=== PATIENT | female | born 1970 | race Hispanic/Latino ===

== ENCOUNTER 2018-05-31 18:38 | Emergency (ER) | payer SELFPAY ==
[~2018-05-31] VITALS: Ht 160 cm; Wt 77.1 kg
[~2018-05-31 18:38] MED LIST: METFORMIN HCL500 MG PO
[2018-05-31] MEDS ORDERED: ONDANSETRON HCL INJ 2 MG/ML VIAL IV STA (18:51)
[2018-05-31] MEDS ORDERED: MORPHINE SULFATE 2 MG/ML SYR IV STA (18:51)
[2018-05-31] MEDS ORDERED: SODIUM CHLORIDE 0.9% 1000ML 1,000 ML IV SCH (19:00)
[2018-05-31 19:13] LABS: BASOPHILS # (AUTO) 0.1 (0.0-0.1); BASOPHILS % 0.7 % (0.0-1.0); EOSINOPHILS # (AUTO) 0.2 (0.0-0.4); EOSINOPHILS % 1.6 % (0.0-6.0); HEMATOCRIT 43.6 % (34.2-44.1); HEMOGLOBIN 15.6 g/dL (12.0-16.0); LYMPHOCYTES # (AUTO) 3.6 (1.0-3.2); LYMPHOCYTES % 28.3 % (18.0-39.1); MEAN CORPUSCULAR HEMOGLOBIN 31.5 pg (28-32); MEAN CORPUSCULAR HGB CONC 35.8 g/dL (31-35); MEAN CORPUSCULAR VOLUME 88.1 fL (81-99); MONOCYTES # (AUTO) 0.9 (0.2-0.8); MONOCYTES % 6.8 % (4.4-11.3); NEUTROPHILS # (AUTO) 7.9 (2.1-6.9); NEUTROPHILS % 62.1 % (38.7-80.0); PLATELET COUNT 402 x10e3/uL (140-360); RED BLOOD COUNT 4.95 x10e6/uL (3.6-5.1)
[2018-05-31] MEDS ORDERED: ONDANSETRON HCL INJ 2 MG/ML VIAL IV SCH (19:15)
[2018-05-31] MEDS ORDERED: MORPHINE SULFATE 2 MG/ML SYR IV SCH (19:15)
[2018-05-31 19:33] LABS: ALANINE AMINOTRANSFERASE 15 IU/L (0-55); ALBUMIN 4.4 g/dL (3.5-5.0); ALBUMIN/GLOBULIN RATIO 1.2 (0.8-2.0); ALKALINE PHOSPHATASE 67 IU/L (40-150); ANION GAP 17.6 mmol/L (8-16); BLOOD UREA NITROGEN 13 mg/dL (7-26); BUN/CREATININE RATIO 17 (6-25); CALCIUM 10.2 mg/dL (8.4-10.2); CARBON DIOXIDE 20 mmol/L (22-29); CHLORIDE 104 mmol/L (98-107); CREATININE, SERUM 0.76 mg/dL (0.57-1.11); EST GLOMERULAR FILTRATION RATE > 60 ML/MIN (60-); GLUCOSE 97 mg/dL (74-118); POTASSIUM 3.6 mmol/L (3.5-5.1); SODIUM 138 mmol/L (136-145)
[2018-05-31 19:34] LABS: AMYLASE 63 U/L (25-125); LIPASE 54 U/L (8-78)
--- NOTE | 2018-05-31 19:48 | Diagnostic Imaging Report ---
EXAM: CT Abdomen and Pelvis WITHOUT contrast INDICATION: Renal stone protocol. Abdominal pain. Intermittent left flank pain. Nausea and vomiting. COMPARISON: CT abdomen and pelvis 05/02/2017. TECHNIQUE: Abdomen and pelvis were scanned utilizing a multidetector helical scanner from the lung base to the pubic symphysis without administration of IV contrast. Absence of intravenous contrast decreases sensitivity for detection of focal lesions and vascular pathology. Coronal and sagittal reformations were obtained. Stone protocol is performed. IV CONTRAST: None ORAL CONTRAST: Water COMPLICATIONS: None RADIATION DOSE: Total DLP: 516 mGy*cm Estimated effective dose: (DLP x 0.015 x size factor) mSv CTDIvol has been reviewed. It is below the limits set by the Radiation Protocol Committee (RPC). FINDINGS: LINES and TUBES: None. LOWER THORAX: Unremarkable HEPATOBILIARY: No focal hepatic lesions. No biliary ductal dilation. GALLBLADDER: There are cholecystectomy clips. SPLEEN: No splenomegaly. PANCREAS: No focal masses or ductal dilatation. ADRENALS: No adrenal nodules KIDNEYS/URETERS: Right renal scarring. No hydronephrosis. No cystic or solid mass lesions. No stones. GI TRACT: No abnormal distention, wall thickening, or evidence of bowel obstruction. Appendix is normal. PELVIC ORGANS/BLADDER: The uterus is absent. Bilateral ovaries are unremarkable. LYMPH NODES: No lymphadenopathy. VESSELS: Unremarkable. PERITONEUM / RETROPERITONEUM: No free air or fluid. BONES: Unremarkable. SOFT TISSUES: Unremarkable. IMPRESSION: Unremarkable abdomen and pelvis. No renal stones. Signed by: Dr. Eric Mcgill M.D. on 05/31/2018 7:45 PM
[2018-05-31 19:50] LABS: BILIRUBIN,URINE NEGATIVE (NEGATIVE); CLARITY,URINE SL CLOUDY (CLEAR); COLOR,URINE YELLOW (YELLOW); KETONES,URINE 1+ (NEGATIVE); LEUKOCYTE ESTERASE ,URINE NEGATIVE (NEGATIVE); NITRITE,URINE NEGATIVE (NEGATIVE); PROTEIN,URINE DIPSTICK NEGATIVE (NEGATIVE); URINE UROBILINOGEN 0.2 mg/dL (0.2 - 1)
[2018-05-31] MEDS ORDERED: KETOROLAC TROMETHAMINE 30 MG/ML VIAL IV STA (19:52)
[2018-05-31 20:00] LABS: EPITHELIAL CELLS,URINE MANY /LPF; MUCUS,URINE MODERATE (RARE)
[2018-05-31 20:11] VITALS: BP 126/67
== END 2018-05-31 20:42 | disposition home or self-care (01) ==
LOC: ER 18:38
DX: R10.32 Left lower quadrant pain (principal); R11.2 Nausea with vomiting, unspecified; R19.7 Diarrhea, unspecified; E11.9 Type 2 diabetes mellitus without complications
CPT/HCPCS: 36415; 74176; 80053; 81001; 82150; 83690; 84702; 85025; 99284; J1885; J2270; J2405; J7030

== ENCOUNTER 2018-11-17 12:00 | Emergency (ER) | payer SELFPAY ==
--- NOTE | 2018-11-17 12:52 | NUR ---
No answer in lobby at this time.
--- NOTE | 2018-11-17 13:22 | NUR ---
No answer in lobby at this time.
== END 2018-11-17 13:23 | disposition short-term general hospital (02) ==
LOC: ER 12:00
DX: M54.9 Dorsalgia, unspecified (principal)

== ENCOUNTER 2019-04-05 05:37 | Emergency (ER) | payer OTHER ==
[~2019-04-05] VITALS: Ht 160 cm; Wt 77.1 kg
[2019-04-05] MEDS ORDERED: ONDANSETRON HCL INJ 2MG/ML 2ML 2 MG/ML VIAL IV STA (05:54)
[2019-04-05] MEDS ORDERED: SODIUM CHLORIDE 0.9% 1000ML 1,000 ML IV ONE (06:00)
[2019-04-05] MEDS ORDERED: DICYCLOMINE HCL 20 MG/2 ML VIAL IM ONE (06:00)
[2019-04-05] MEDS ORDERED: DIATRIZOATE MEGL/DIATRIZOA SOD 30 ML BTL PO ONE (06:10)
[2019-04-05 06:50] LABS: BASOPHILS # (AUTO) 0.1 (0.0-0.1); BASOPHILS % 0.5 % (0.0-1.0); EOSINOPHILS # (AUTO) 0.3 (0.0-0.4); EOSINOPHILS % 2.9 % (0.0-6.0); LYMPHOCYTES % 31.4 % (18.0-39.1); MEAN CORPUSCULAR HEMOGLOBIN 31.4 pg (28-32); MEAN CORPUSCULAR HGB CONC 34.6 g/dL (31-35); MEAN CORPUSCULAR VOLUME 90.7 fL (81-99); MONOCYTES # (AUTO) 0.6 (0.2-0.8); MONOCYTES % 6.5 % (4.4-11.3); NEUTROPHILS # (AUTO) 5.6 (2.1-6.9); NEUTROPHILS % 58.2 % (38.7-80.0); PLATELET COUNT 349 x10e3/uL (140-360); RED BLOOD COUNT 4.52 x10e6/uL (3.6-5.1); RED CELL DISTRIBUTION WIDTH 12.7 % (11.7-14.4)
[2019-04-05 06:51] LABS: COLOR,URINE AMBER (YELLOW)
[2019-04-05 06:52] LABS: BILIRUBIN,URINE NEGATIVE (NEGATIVE); CLARITY,URINE SL CLOUDY (CLEAR); KETONES,URINE 1+ (NEGATIVE); LEUKOCYTE ESTERASE ,URINE NEGATIVE (NEGATIVE); NITRITE,URINE NEGATIVE (NEGATIVE); PROTEIN,URINE DIPSTICK TRACE (NEGATIVE); URINE UROBILINOGEN 0.2 mg/dL (0.2 - 1)
[2019-04-05 06:55] LABS: HEMOGLOBIN 14.2 g/dL (12.0-16.0)
[2019-04-05 07:11] LABS: ALANINE AMINOTRANSFERASE 26 IU/L (0-55); ALBUMIN/GLOBULIN RATIO 1.2 (0.8-2.0); ALKALINE PHOSPHATASE 73 IU/L (40-150); AMYLASE 61 U/L (25-125); BLOOD UREA NITROGEN 17 mg/dL (7-26); BUN/CREATININE RATIO 22 (6-25); CARBON DIOXIDE 25 mmol/L (22-29); CHLORIDE 104 mmol/L (98-107); CREATININE, SERUM 0.78 mg/dL (0.57-1.11); EST GLOMERULAR FILTRATION RATE > 60 ML/MIN (60-); GLUCOSE 183 mg/dL (74-118); LIPASE 50 U/L (8-78); SODIUM 136 mmol/L (136-145)
[2019-04-05 07:12] LABS: BACTERIA,URINE FEW /HPF; EPITHELIAL CELLS,URINE MANY /LPF
[2019-04-05] MEDS ORDERED: SODIUM CHLORIDE 0.9% 50ML 50 ML ONE (07:40)
[2019-04-05] MEDS ORDERED: IOPAMIDOL 370 MG/ML 200 ML INFUS..BTL INJ ONE (07:41)
--- NOTE | 2019-04-05 08:33 | Diagnostic Imaging Report ---
EXAMINATION: CT of the abdomen and pelvis with contrast. TECHNIQUE: Spiral CT images of the abdomen and pelvis were performed from the lung bases to the lesser trochanters after the intravenous administration of 100 cc Isovue-370. Coronal and sagittal reformatted images were obtained. COMPARISON: CT abdomen and pelvis without contrast 05/31/2018 CLINICAL HISTORY:Left lower quadrant pain, diarrhea DISCUSSION: ABDOMEN/PELVIS: LOWER THORAX:Unremarkable. HEPATOBILIARY: No focal hepatic lesions. No intra-or extrahepatic biliary ductal dilation. The gallbladder has been removed. SPLEEN: No splenomegaly. PANCREAS: No focal masses or ductal dilatation. ADRENALS: No adrenal nodules. KIDNEYS/URETERS: Lobulated contour of the kidneys, right greater than left, likely congenital. No hydronephrosis, calculi, or gross mass lesion. PELVIC ORGANS/BLADDER: Urinary bladder is unremarkable. Uterus is not identified and has presumably been removed. No adnexal mass. PERITONEUM/RETROPERITONEUM: No ascites. No pneumoperitoneum. LYMPH NODES: No pelvic sidewall, retroperitoneal, or mesenteric lymphadenopathy. VESSELS: Abdominal aorta, major branch vessels, and iliac arterial systems are patent with minimal calcified atherosclerotic plaque. Portal vein, splenic vein, and central superior mesenteric vein are patent. GI TRACT: The large bowel shows no distention or wall thickening. Gas and fecal material are noted throughout. The appendix is normal. No small bowel dilatation to suggest obstruction. The stomach is collapsed with prominent rugal folds. BONES AND SOFT TISSUE: No osseous destructive lesions. Bilateral facet arthropathy at L5-S1. Hemangioma T9 vertebral body. No soft tissue abnormalities. IMPRESSION: No acute intra-abdominal or pelvic CT abnormalities. Signed by: Dr. Ferny Sherwood M.D. on 04/05/2019 8:30 AM
[2019-04-05] MEDS ORDERED: DICYCLOMINE HCL20 MG PO (08:53)
== END 2019-04-05 09:01 | disposition home or self-care (01) ==
LOC: ER 05:37
DX: R10.32 Left lower quadrant pain (principal); R11.2 Nausea with vomiting, unspecified; R19.7 Diarrhea, unspecified; E11.9 Type 2 diabetes mellitus without complications
CPT/HCPCS: 36415; 74177; 80053; 81001; 82150; 83690; 85025; 99284; J0500; J2405; J7030; Q9967

== ENCOUNTER 2019-09-21 10:20 | Emergency (ER) | payer OTHER ==
[~2019-09-21] VITALS: Ht 160 cm; Wt 77.1 kg
[~2019-09-21 10:20] MED LIST changes: +DICYCLOMINE HCL20 MG PO
[2019-09-21] MEDS ORDERED: SODIUM CHLORIDE 0.9% 1000ML 1,000 ML IV STA (10:24)
[2019-09-21] MEDS ORDERED: ONDANSETRON HCL INJ 2MG/ML 2ML 2 MG/ML VIAL IV STA (10:59)
[2019-09-21] MEDS ORDERED: FENTANYL CITRATE/PF 100MCG/2 ML INJ IV ONE (11:00)
[2019-09-21 11:01] LABS: BASOPHILS # (AUTO) 0.1 (0.0-0.1); BASOPHILS % 0.8 % (0.0-1.0); EOSINOPHILS # (AUTO) 0.3 (0.0-0.4); EOSINOPHILS % 2.4 % (0.0-6.0); HEMATOCRIT 43.5 % (34.2-44.1); HEMOGLOBIN 15.5 g/dL (12.0-16.0); LYMPHOCYTES # (AUTO) 2.6 (1.0-3.2); MEAN CORPUSCULAR HEMOGLOBIN 31.8 pg (28-32); MEAN CORPUSCULAR HGB CONC 35.6 g/dL (31-35); MEAN CORPUSCULAR VOLUME 89.1 fL (81-99); MONOCYTES # (AUTO) 0.7 (0.2-0.8); MONOCYTES % 5.9 % (4.4-11.3); NEUTROPHILS # (AUTO) 8.1 (2.1-6.9); NEUTROPHILS % 68.6 % (38.7-80.0); PLATELET COUNT 367 x10e3/uL (140-360); RED BLOOD COUNT 4.88 x10e6/uL (3.6-5.1)
[2019-09-21 11:21] LABS: ALANINE AMINOTRANSFERASE 22 IU/L (0-55); ALBUMIN 4.1 g/dL (3.5-5.0); ALBUMIN/GLOBULIN RATIO 1.3 (0.8-2.0); ALKALINE PHOSPHATASE 73 IU/L (40-150); ANION GAP 14.3 mmol/L (8-16); BLOOD UREA NITROGEN 21 mg/dL (7-26); BUN/CREATININE RATIO 26 (6-25); CALCIUM 9.4 mg/dL (8.4-10.2); CARBON DIOXIDE 27 mmol/L (22-29); CHLORIDE 97 mmol/L (98-107); CREATINE KINASE 58 IU/L (29-168); EST GLOMERULAR FILTRATION RATE > 60 ML/MIN (60-); GLUCOSE 199 mg/dL (74-118); LIPASE 27 U/L (8-78); POTASSIUM 3.3 mmol/L (3.5-5.1); SODIUM 135 mmol/L (136-145)
[2019-09-21] MEDS ORDERED: KETOROLAC TROMETHAMINE 30 MG/ML VIAL IV STA (12:34)
[2019-09-21] MEDS ORDERED: POTASSIUM CHLORIDE 20 MEQ TAB CR PO STA (12:35)
[2019-09-21 12:55] LABS: BILIRUBIN,URINE NEGATIVE (NEGATIVE); CLARITY,URINE CLEAR (CLEAR); COLOR,URINE YELLOW (YELLOW); KETONES,URINE 1+ (NEGATIVE); LEUKOCYTE ESTERASE ,URINE NEGATIVE (NEGATIVE); NITRITE,URINE NEGATIVE (NEGATIVE); PROTEIN,URINE DIPSTICK NEGATIVE (NEGATIVE); URINE UROBILINOGEN 0.2 mg/dL (0.2 - 1)
[2019-09-21] MEDS ORDERED: LORAZEPAM INJ 2 MG/ML VIAL IV ONE ×2 (13:00→13:30)
[2019-09-21 13:03] LABS: AMPHETAMINES SCREEN,URINE NEGATIVE (NEGATIVE); BENZODIAZEPINES SCREEN,URINE POSITIVE (NEGATIVE); PHENCYCLIDINE SCREEN,URINE NEGATIVE (NEGATIVE)
[2019-09-21 13:48] LABS: MUCUS,URINE FEW (RARE)
[2019-09-21 13:49] LABS: BACTERIA,URINE FEW /HPF; EPITHELIAL CELLS,URINE FEW /LPF; HYALINE CASTS 0-1 (0-1); RBC,URINE 0-5 /HPF (0-5); WBC,URINE (MAN) 0-5 /HPF (0-5)
--- NOTE | 2019-09-21 14:14 | Diagnostic Imaging Report ---
EXAM: CT Abdomen and Pelvis WITH intravenous contrast INDICATION: Abdominal pain COMPARISON: CT abdomen and pelvis of 04/05/2019 TECHNIQUE: Abdomen and pelvis were scanned utilizing a multidetector helical scanner from the lung base to the pubic symphysis after administration of IV contrast. Coronal and sagittal reformations were obtained. Routine protocol was performed. Scan was performed during portal venous phase. IV CONTRAST: 100mL of Isovue 370 ORAL CONTRAST: Water RADIATION DOSE: Total DLP: 321.5 mGy*cm Dose modulation, iterative reconstruction, and/or weight based adjustment of the mA/kV was utilized to reduce the radiation dose to as low as reasonably achievable. FINDINGS: LOWER THORAX: Bibasilar dependent subsegmental atelectasis. No focal consolidation. HEPATOBILIARY: Diffuse hepatic steatosis. No focal liver lesion. No biliary ductal dilation. Status post cholecystectomy. SPLEEN: No splenomegaly. PANCREAS: No focal masses or ductal dilatation. ADRENALS: No adrenal nodules. KIDNEYS/URETERS: No hydronephrosis, stones, or solid mass lesions. PELVIC ORGANS/BLADDER: Status post hysterectomy. Distended bladder. PERITONEUM / RETROPERITONEUM: No free air or fluid. LYMPH NODES: No lymphadenopathy. VESSELS: Unremarkable. GI TRACT: No distention or wall thickening. BONES AND SOFT TISSUES: No acute osseous injury. No suspicious lytic or blastic lesions. IMPRESSION: No acute findings in the abdomen or pelvis. Diffuse hepatic steatosis. Signed by: Maximiliano Stein MD on 09/21/2019 2:10 PM
--- NOTE | 2019-09-21 14:14 | NUR ---
pt is resting peacefully and once she wakes up she starts to dry heave and c/o pain. Pt is sleeping but when you wake her she is in pain.
[2019-09-21] MEDS ORDERED: ZOFRAN4 MG SL (14:16)
[2019-09-21 14:53] VITALS: BP 129/60
[2019-09-21] MEDS ORDERED: SODIUM CHLORIDE 0.9% 50ML 50 ML ONE (15:12)
[2019-09-21] MEDS ORDERED: IOPAMIDOL 370 MG/ML 200 ML INFUS..BTL INJ ONE (15:12)
== END 2019-09-21 14:55 | disposition home or self-care (01) ==
LOC: ER 10:20
DX: R10.32 Left lower quadrant pain (principal); R11.10 Vomiting, unspecified; F12.20 Cannabis dependence, uncomplicated
CPT/HCPCS: 36415; 74177; 80053; 80307; 81001; 82550; 82553; 83690; 84484; 85025; 93005; 99284; J1885; J2060; J2405; J3010; J7030; Q9967

== ENCOUNTER 2020-06-17 14:22 | Emergency (ER) | payer SELFPAY ==
[~2020-06-17] VITALS: Ht 160 cm; Wt 77.1 kg
[~2020-06-17 14:22] MED LIST changes: +ZOFRAN4 MG SL
[2020-06-17] MEDS ORDERED: IOPAMIDOL 300MG/ML 100 ML INFUS..BTL IV ONE (14:30)
[2020-06-17] MEDS ORDERED: SODIUM CHLORIDE 0.9% INJ 50 ML BAG IV ONE (14:30)
[2020-06-17] MEDS ORDERED: PANTOPRAZOLE 40 MG 10ML VIAL IV STA (14:34)
[2020-06-17] MEDS ORDERED: SODIUM CHLORIDE 0.9% 1000ML 1,000 ML IV STA (14:34)
[2020-06-17] MEDS ORDERED: DICYCLOMINE HCL 20 MG/2 ML VIAL IM ONE (14:45)
[2020-06-17] MEDS ORDERED: PROMETHAZINE 25MG/ NS 50ML (IV) IV PRN (14:45)
[2020-06-17 14:51] LABS: BASOPHILS # (AUTO) 0.1 (0.0-0.1); BASOPHILS % 0.6 % (0.0-1.0); EOSINOPHILS # (AUTO) 0.3 (0.0-0.4); EOSINOPHILS % 2.2 % (0.0-6.0); HEMATOCRIT 47.9 % (34.2-44.1); HEMOGLOBIN 16.6 g/dL (12.0-16.0); LYMPHOCYTES # (AUTO) 1.4 (1.0-3.2); LYMPHOCYTES % 9.6 % (18.0-39.1); MEAN CORPUSCULAR HEMOGLOBIN 30.1 pg (28-32); MEAN CORPUSCULAR HGB CONC 34.7 g/dL (31-35); MEAN CORPUSCULAR VOLUME 86.9 fL (81-99); MONOCYTES # (AUTO) 0.7 (0.2-0.8); MONOCYTES % 4.7 % (4.4-11.3); NEUTROPHILS # (AUTO) 12.2 (2.1-6.9); NEUTROPHILS % 82.4 % (38.7-80.0); PLATELET COUNT 344 x10e3/uL (140-360); RED BLOOD COUNT 5.51 x10e6/uL (3.6-5.1); RED CELL DISTRIBUTION WIDTH 11.9 % (11.7-14.4)
[2020-06-17] MEDS ORDERED: PROMETHAZINE 25MG/SOD CHL 0.9% 50 ML ONE (14:55)
[2020-06-17 14:57] LABS: INR 0.79; PROTHROMBIN TIME 11.3 seconds (11.9-14.5)
[2020-06-17 14:58] LABS: PARTIAL THROMBOPLASTIN TIME 24.9 seconds (23.8-35.5)
[2020-06-17 14:58] LABS: CLARITY,URINE SL CLOUDY (CLEAR); COLOR,URINE YELLOW (YELLOW); KETONES,URINE 2+ (NEGATIVE); LEUKOCYTE ESTERASE ,URINE NEGATIVE (NEGATIVE); NITRITE,URINE NEGATIVE (NEGATIVE); PROTEIN,URINE DIPSTICK 2+ (NEGATIVE); URINE UROBILINOGEN 0.2 mg/dL (0.2 - 1)
[2020-06-17 14:59] LABS: BILIRUBIN,URINE NEGATIVE (NEGATIVE)
[2020-06-17 15:02] LABS: AMPHETAMINES SCREEN,URINE NEGATIVE (NEGATIVE); BENZODIAZEPINES SCREEN,URINE NEGATIVE (NEGATIVE); PHENCYCLIDINE SCREEN,URINE NEGATIVE (NEGATIVE)
[2020-06-17 15:08] LABS: ALANINE AMINOTRANSFERASE 39 IU/L (0-55); ALBUMIN 4.5 g/dL (3.5-5.0); ALBUMIN/GLOBULIN RATIO 1.1 (0.8-2.0); ALKALINE PHOSPHATASE 119 IU/L (40-150); AMYLASE 49 U/L (25-125); ANION GAP 21.7 mmol/L (8-16); BLOOD UREA NITROGEN 15 mg/dL (7-26); BUN/CREATININE RATIO 17 (6-25); CALCIUM 10.6 mg/dL (8.4-10.2); CARBON DIOXIDE 20 mmol/L (22-29); CHLORIDE 102 mmol/L (98-107); CREATINE KINASE 70 IU/L (29-168); CREATININE, SERUM 0.86 mg/dL (0.57-1.11); EST GLOMERULAR FILTRATION RATE > 60 ML/MIN (60-); GLUCOSE 370 mg/dL (74-118); LIPASE 27 U/L (8-78); MAGNESIUM 1.6 MG/DL (1.3-2.1); POTASSIUM 3.7 mmol/L (3.5-5.1); SODIUM 140 mmol/L (136-145)
[2020-06-17 15:09] LABS: BACTERIA,URINE FEW /HPF; EPITHELIAL CELLS,URINE FEW /LPF; RBC,URINE 0-5 /HPF (0-5)
--- NOTE | 2020-06-17 15:14 | Diagnostic Imaging Report ---
EXAMINATION: CHEST SINGLE (PORTABLE) INDICATION: Abdominal pain COMPARISON: None FINDINGS: LINES/TUBES:None LUNGS:The lungs are well-inflated. No focal consolidation or pulmonary edema. PLEURA:No pleural effusion or pneumothorax. MEDIASTINUM:The cardiomediastinal silhouette appears normal in size and shape. BONES/SOFT TISSUES:No acute osseous injury. ABDOMEN:No free air under the diaphragm. IMPRESSION: No focal pneumonia or pulmonary edema. Signed by: Maximiliano Stein MD on 06/17/2020 3:11 PM
[2020-06-17] MEDS ORDERED: PROMETHAZINE HCL (IM) 25 MG/ML VIAL IM PRN (15:15)
[2020-06-17] MEDS ORDERED: DIATRIZOATE MEGL/DIATRIZOA SOD 30 ML BTL PO ONE (15:36)
--- NOTE | 2020-06-17 15:53 | Emergency Department Note ---
History of Present Illnes History of Present Illness Chief Complaint: Abdominal Complaints History of Present Illness This is a 49 year old female INTERMITTENT EPIGASTRIC PAIN, NON RADIATING. C/O OF MULTIPLE EPISODES OF VOMITING AND DIARRHEA. PATIENT CLAMMY, YELLING OUT IN PAIN. LAST MEAL 7PM. 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 Any updates have been documented here. Past Medical History Recent Fever: No Clinical Suspicion of Infectio: No New/Unexplained Change in Ment: No Past Medical History: Diabetes Other Medical History: GALLSTONES Past Surgical History: Cholecysctectomy, Hysterectomy Other Surgery: KNEE REPLACEMENT Social History Smoking Cessation: Never Smoker Counseling Performed: No Alcohol Use: None Any Illegal Drug Use: Yes (MARIJUANA) TB Exposure/Symptoms: No Physically hurt or threatened: No Family History Family history of heart diseas: No Other Last Tetanus: UTD Any Pre-Existing Lines (PICC,: No Review of Systems Review of Systems Constitutional: Reports no symptoms EENTM: Reports no symptoms Cardiovascular: Reports no symptoms Respiratory: Reports no symptoms Gastrointestinal: Reports as per HPI, Reports abdominal pain, Reports diarrhea, Reports nausea, Reports vomiting Genitourinary: Reports no symptoms Musculoskeletal: Reports no symptoms Integumentary: Reports no symptoms Neurological: Reports no symptoms Psychological: Reports no symptoms Endocrine: Reports no symptoms Hematological/Lymphatic: Reports no symptoms Physical Exam Related Data Allergies: Coded Allergies: No Known Allergies (Unverified , 06/17/20) Triage Vital Signs Vital Signs Date Time Temp Pulse Resp B/P (MAP) Pulse Ox O2 Delivery O2 Flow Rate FiO2 06/17/20 14:27 97.8 92 20 126/87 100 Room Air Vital signs reviewed: Yes Physical Exam CONSTITUTIONAL Constitutional: Present well-developed, Present well-nourished HENT HENT: Present normocephalic, Present atraumatic, Present oropharynx alex r/moist, Present nose normal HENT L/R: Present left ext ear normal, Present right ext ear normal EYES Eyes: Reports PERRL, Reports conjunctivae normal NECK Neck: Present ROM normal PULMONARY Pulmonary: Present effort normal, Present breath sounds normal CARDIOVASCULAR Cardiovascular: Present regular rhythm, Present heart sounds normal, Present capillary refill normal, Present normal rate GASTROINTESTINAL Abdominal: Present soft, Present bowel sounds normal, Present tender (MOD TENDERNESS ABELARDO AREA WITHOUT R/G); Absent guarding, Absent mass, Absent rebound, Absent left CVA tenderness, Absent right CVA tenderness GENITOURINARY Genitourinary: Present exam deferred SKIN Skin: Present warm, Present dry MUSCULOSKELETAL Musculoskeletal: Present ROM normal NEUROLOGICAL Neurological: Present alert, Present oriented x 3, Present no gross motor or sensory deficits PSYCHOLOGICAL Psychological: Present mood/affect normal, Present judgement normal Results Laboratory Result Diagram: 06/17/20 1431 06/17/20 1431 Laboratory Laboratory Tests Test 06/17/20 14:35 06/17/20 14:31 Urine Color Yellow (YELLOW) Urine Clarity Sl cloudy (CLEAR) Urine pH 7 (5 - 7) Urine Specific Plover 1.020 (1.010-1.025) Urine Protein 2+ (NEGATIVE) Urine Glucose (UA) 2+ (NEGATIVE) Urine Ketones 2+ (NEGATIVE) Urine Blood Trace (NEGATIVE) Urine Nitrite Negative (NEGATIVE) Urine Bilirubin Negative (NEGATIVE) Urine Urobilinogen 0.2 mg/dL (0.2 - 1) Urine Leukocyte Esterase Negative (NEGATIVE) Urine RBC 0-5 /HPF (0-5) Urine WBC None /HPF (0-5) Urine Epithelial Cells Few /LPF (NONE) Urine Bacteria Few /HPF (NONE) Urine Opiates Screen Negative (NEGATIVE) Urine Methadone Screen Negative (NEGATIVE) Urine Barbiturates Screen Negative (NEGATIVE) Urine Phencyclidine Screen Negative (NEGATIVE) Urine Amphetamines Screen Negative (NEGATIVE) Urine Methamphetamines Screen Negative (NEGATIVE) Urine Benzodiazepines Screen Negative (NEGATIVE) Urine Cocaine Screen Negative (NEGATIVE) Urine Cannabinoids Screen Positive (NEGATIVE) White Blood Count 14.77 x10e3/uL (4.8-10.8) Red Blood Count 5.51 x10e6/uL (3.6-5.1) Hemoglobin 16.6 g/dL (12.0-16.0) Hematocrit 47.9 % (34.2-44.1) Mean Corpuscular Volume 86.9 fL (81-99) Mean Corpuscular Hemoglobin 30.1 pg (28-32) Mean Corpuscular Hemoglobin Concent 34.7 g/dL (31-35) Red Cell Distribution Width 11.9 % (11.7-14.4) Platelet Count 344 x10e3/uL (140-360) Neutrophils (%) (Auto) 82.4 % (38.7-80.0) Lymphocytes (%) (Auto) 9.6 % (18.0-39.1) Monocytes (%) (Auto) 4.7 % (4.4-11.3) Eosinophils (%) (Auto) 2.2 % (0.0-6.0) Basophils (%) (Auto) 0.6 % (0.0-1.0) Neutrophils # (Auto) 12.2 (2.1-6.9) Lymphocytes # (Auto) 1.4 (1.0-3.2) Monocytes # (Auto) 0.7 (0.2-0.8) Eosinophils # (Auto) 0.3 (0.0-0.4) Basophils # (Auto) 0.1 (0.0-0.1) Absolute Immature Granulocyte (auto 0.08 x10e3/uL (0-0.1) Prothrombin Time 11.3 seconds (11.9-14.5) Prothromb Time International Ratio 0.79 Activated Partial Thromboplast Time 24.9 seconds (23.8-35.5) Sodium Level 140 mmol/L (136-145) Potassium Level 3.7 mmol/L (3.5-5.1) Chloride Level 102 mmol/L (98-107) Carbon Dioxide Level 20 mmol/L (22-29) Anion Gap 21.7 mmol/L (8-16) Blood Urea Nitrogen 15 mg/dL (7-26) Creatinine 0.86 mg/dL (0.57-1.11) Estimat Glomerular Filtration Rate > 60 ML/MIN (60-) BUN/Creatinine Ratio 17 (6-25) Glucose Level 370 mg/dL (74-118) Calcium Level 10.6 mg/dL (8.4-10.2) Magnesium Level 1.6 MG/DL (1.3-2.1) Total Bilirubin 1.0 mg/dL (0.2-1.2) Aspartate Amino Transf (AST/SGOT) 30 IU/L (5-34) Alanine Aminotransferase (ALT/SGPT) 39 IU/L (0-55) Alkaline Phosphatase 119 IU/L (40-150) Creatine Kinase 70 IU/L (29-168) Creatine Kinase MB 0.70 ng/mL (0-5.0) Troponin I 0.011 ng/mL (0-0.300) Total Protein 8.6 g/dL (6.5-8.1) Albumin 4.5 g/dL (3.5-5.0) Globulin 4.1 g/dL (2.3-3.5) Albumin/Globulin Ratio 1.1 (0.8-2.0) Amylase Level 49 U/L (25-125) Lipase 27 U/L (8-78) Lab results reviewed: Yes Imaging Imaging results reviewed: Yes Impressions Procedure: [id number] CT/CT ABDOMEN/PELVIS W Exam Date: 06/17/20 Exam Time: 1556 REPORT STATUS: Signed EXAM: CT Abdomen and Pelvis WITH intravenous contrast INDICATION: Abdominal pain COMPARISON: CT abdomen and pelvis of 09/21/2019 TECHNIQUE: Abdomen and pelvis were scanned utilizing a multidetector helical scanner from the lung base to the pubic symphysis after administration of IV contrast. Coronal and sagittal reformations were obtained. Routine protocol was performed. Scan was performed during portal venous phase. IV CONTRAST: 100mL of Isovue 370 ORAL CONTRAST: None RADIATION DOSE: Total DLP: 820 mGy*cm Dose modulation, iterative reconstruction, and/or weight based adjustment of the mA/kV was utilized to reduce the radiation dose to as low as reasonably achievable. FINDINGS: LOWER THORAX: Normal. HEPATOBILIARY: Diffuse hepatic steatosis. No focal liver lesion. No biliary ductal dilation Status post cholecystectomy. SPLEEN: No splenomegaly. PANCREAS: No focal masses or ductal dilatation. ADRENALS: No adrenal nodules. KIDNEYS/URETERS: Irregularity at the posterior margin of the upper pole of the right kidney, possible postoperative versus congenital. No hydronephrosis or renal calculi. PELVIC ORGANS/BLADDER: Hysterectomy. PERITONEUM / RETROPERITONEUM: No free air or fluid. LYMPH NODES: No lymphadenopathy. VESSELS: Unremarkable. GI TRACT: No abnormal bowel thickening. No bowel obstruction. Normal appendix. BONES AND SOFT TISSUES: No acute osseous injury. No suspicious lytic or blastic lesions. IMPRESSION: No acute findings in the abdomen or pelvis. Diffuse hepatic steatosis. Signed by: Maximiliano Stein MD on 06/17/2020 4:23 PM Procedures 12 Lead ECG Interpretation ECG Interpretation : ECG: ECG 1 House Director: Interpreted by ED physician Date: Jun 17, 2020 Time: 15:36 Rhythm: sinus rhythm Rate: normal (81) QRS axis: normal ST segments normal: Yes T waves normal: Yes Clinical Impression: normal ECG Assessment & Plan Medical Decision Making MDM ABELARDO ABD PAIN WITH N/V/D - CBC, CHEM'S, ERIK/LIPASE, ECG, CARDIAC ENZYMES, UA, CT ABD/PELVIS - EVAL PANCREATITIS, BOWEL OBSTRUCTION, AAA, STEMI/NSTEMI, COLITIS Reassessment Reassessment PAIN IMPROVED WITH BENTYL. DC HOME WITH ZOFRAN AND BENTYL, ADVISE LIQUID DIET X 1-2 DAYS AND ADVANCE SLOWLY, F/U PCP TOMORROW Assessment & Plan Final Impression: (1) Gastroenteritis Depart Disposition: HOME, SELF-CARE Last Vital Signs Date Time Temp Pulse Resp B/P (MAP) Pulse Ox O2 Delivery O2 Flow Rate FiO2 06/17/20 15:15 86 18 119/54 100 Room Air 06/17/20 14:27 97.8 Home Meds Active Scripts Ondansetron Hcl* (ZOFRAN*) 4 Mg Tablet, 4 MG SL Q6H PRN for NAUSEA, #14 MG 0 Refills Prov:DIANE HUERTA [employer]FT [employer]IPPING CHECKER 09/21/19 Dicyclomine Hcl (DICYCLOMINE HCL) 20 Mg Tablet, 20 MG PO QID, #40 TAB Prov:DEMETRIO CHAWLA DO 04/05/19 Reported Medications Metformin Hcl (METFORMIN HCL) 500 Mg Tablet, 1000 MG PO BID, #60 TAB 08/06/15 Medications in the ED Pantoprazole Sodium 40 mg ONCE STAT IV Last administered on 06/17/20at 14:57; Admin Dose 40 MG; Start 06/17/20 at 14:34; Stop 06/17/20 at 14:55; Status DC Sodium Chloride 1,000 ml @ 0 mls/hr Q0M STAT IV Last administered on 06/17/20at 14:50; Admin Dose 1,000 MLS/HR; Start 06/17/20 at 14:34; Stop 06/17/20 at 14:41; Status DC Dicyclomine HCl 20 mg ONCE ONCE IM Last administered on 06/17/20at 14:57; Admin Dose 20 MG; Start 06/17/20 at 14:45; Stop 06/17/20 at 14:52; Status DC Promethazine HCl 25 mg ONCE PRN IM NAUSEA AND VOMITING; Start 06/17/20 at 15:15; Stop 06/17/20 at 21:00 Diatrizoate Meglum/ Diatrizoate Sod 30 ml STK-MED ONCE PO ; Start 06/17/20 at 15:36; Stop 06/17/20 at 15:30; Status DC ARNOLDO DYKES MD Jun 17, 2020 15:53
--- NOTE | 2020-06-17 16:26 | Diagnostic Imaging Report ---
EXAM: CT Abdomen and Pelvis WITH intravenous contrast INDICATION: Abdominal pain COMPARISON: CT abdomen and pelvis of 09/21/2019 TECHNIQUE: Abdomen and pelvis were scanned utilizing a multidetector helical scanner from the lung base to the pubic symphysis after administration of IV contrast. Coronal and sagittal reformations were obtained. Routine protocol was performed. Scan was performed during portal venous phase. IV CONTRAST: 100mL of Isovue 370 ORAL CONTRAST: None RADIATION DOSE: Total DLP: 820 mGy*cm Dose modulation, iterative reconstruction, and/or weight based adjustment of the mA/kV was utilized to reduce the radiation dose to as low as reasonably achievable. FINDINGS: LOWER THORAX: Normal. HEPATOBILIARY: Diffuse hepatic steatosis. No focal liver lesion. No biliary ductal dilation Status post cholecystectomy. SPLEEN: No splenomegaly. PANCREAS: No focal masses or ductal dilatation. ADRENALS: No adrenal nodules. KIDNEYS/URETERS: Irregularity at the posterior margin of the upper pole of the right kidney, possible postoperative versus congenital. No hydronephrosis or renal calculi. PELVIC ORGANS/BLADDER: Hysterectomy. PERITONEUM / RETROPERITONEUM: No free air or fluid. LYMPH NODES: No lymphadenopathy. VESSELS: Unremarkable. GI TRACT: No abnormal bowel thickening. No bowel obstruction. Normal appendix. BONES AND SOFT TISSUES: No acute osseous injury. No suspicious lytic or blastic lesions. IMPRESSION: No acute findings in the abdomen or pelvis. Diffuse hepatic steatosis. Signed by: Maxiimliano Stein MD on 06/17/2020 4:23 PM
--- OUTSIDE RECORDS SUMMARY | 2020-06-20 19:15 | XMS REPORT | Clinical Summary ---
Author Author [facility] Organization [facility] Address Unknown Phone Unavailable Care Team Providers Care Small Package And Bundle Sorter Clerk Name Role Phone Clara Padilla MD PCP Pcp, No PCP Unavailable Allergies No Known Allergies Medications End Date Status Medication Sig Dispensed Refills Start Date Active ASPIRIN 81 MG CHEWABLE chew 1 tablet 0 TAB (81 mg) by oral route once daily Active blood glucose Use as 1 Kit 0 meterIndications: directed.. 4 Diabetes mellitus type II, uncontrolled Active alcohol swabs Apply to 100 Each 3 PadMIndications: Diabetes affected 4 mellitus type II, area. uncontrolled Active lancets 28 Check blood 50 Each 12 gaugeIndications: glucose 2 7 Inadequately controlled times weekly. diabetes mellitus Active blood glucose test Check blood 50 Each 01 stripsIndications: glucose 2 7 Inadequately controlled times weekly. diabetes mellitus Active linagliptin (TRADJENTA) 5 Take 1 tablet 90 tablet 1 mg tabletIndications: by mouth 8 Inadequately controlled daily. diabetes mellitus Active simvastatin (ZOCOR) 20 mg Take 1 tablet 90 tablet 1 tabletIndications: by mouth at 8 Inadequately controlled bedtime diabetes mellitus nightly. Active metFORMIN (GLUCOPHAGE) Take 2 360 tablet 1 500 mg tabletIndications: tablets by 8 Inadequately controlled mouth 2 times diabetes mellitus daily (with meals). Active ibuprofen (MOTRIN) 800 mg Take 1 tablet 30 tablet 0 tabletIndications: Left by mouth 8 sided abdominal pain every 8 hours as needed for Pain. Active dexlansoprazole Take 1 90 capsule 0 (DEXILANT) 60 mg delayed capsule by 8 release mouth daily. capsuleIndications: Left sided abdominal pain, Abdominal pain, epigastric Active Problems Problem Noted Date Elevated blood pressure reading without diagnosis of hypertension 07/07/2018 Generalized abdominal pain 06/17/2018 Hydrosalpinx 12/20/2017 Inadequately controlled diabetes mellitus 12/20/2017 Pelvic pain 07/06/2017 Screening mammogram, encounter for 07/06/2017 History of vitamin D deficiency 03/15/2017 CANDY positive 03/15/2017 Right tennis elbow 03/15/2017 Polyarthralgia 03/15/2017 Controlled type 2 diabetes mellitus without complicat ion, without long-term 03/15/2017 current use of insulin Abnormal CBC 11/19/2016 Arthralgia 11/17/2016 History of laparoscopic cholecystectomy 11/26/2015 Gallstones 11/04/2015 Fatty liver 09/12/2015 Overweight (BMI 25.0-29.9) 09/12/2015 Abdominal pain 08/05/2015 Hyperlipidemia-controlled with med 07/08/2014 De Quervain's disease (tenosynovitis) 07/08/2014 Diabetes mellitus type II, uncontrolled 04/12/2014 Obesity 04/12/2014 Obesity, Unspecified- as of 03/2014 ref to nut done 1 Immunizations Name Administration Dates Next Due Influenza Vaccine 11/17/2016, 09/12/2015, Influenza Vaccine, 09/30/2017 (Deferred: Other - patient sick today) Seasonal, Injectable Pneumoccoccal 07/22/2009 Tdap Tetanus, diphtheria, 04/12/2014 acellular pertussis Vaccine Family History Medical History Relation Name Comments Diabetes Father Hypertension Father Stroke Paternal Grandfather Relation Name Status Comments Brother Alive Brother Alive Brother Alive Daughter Alive Daughter Alive Father Alive Maternal Grandfather Maternal Grandmother Mother Alive Paternal Grandfather Paternal Grandmother Sister Alive Sister Alive Sister Alive Son Alive Son Alive Social History Date Tobacco Use Types Packs/Day Years Used Former Smoker Cigars Smokeless Tobacco: Never Used Tobacco Cessation: Counseling Given: No Comments: quit 2008 approx Drinks/Week oz/Week Comments Alcohol Use 0 Standard drinks or equivalent 0.0 3 beers once in a vin h Yes Food Insecurity Answer Date Recorded Within the past 12 months, you worried that your Never krystina e 07/07/2018 food would run out before you got money to buy more. Within the past 12 months, the food you bought Never true 07/07/2018 just didn't last and you didn't have mo alyse to get more. Sex Assigned at Date Recorded Not on file Industry Job Start Date Occupation Not on file Not on file Not on file Travel End Travel History Travel Start No recent travel history available. Last Filed Vital Signs Not on file Plan of Treatment Health Maintenance Due Date Last Done Comments DM Foot Exam (Yearly) 07/27/2018 07/27/2017, 11/26/2015, 04/12/2014 Breast Cancer Scrn 01/18/2019 01/18/2018, (Yearly) 05/07/2014 DM Microalbumin Urine 07/06/2019 07/06/2018, Scrn (Yearly) 07/27/2017, 08/16/2016, Additional history exists DM HGBA1C (Yearly) 07/07/2019 07/07/2018, 07/06/2018, 01/18/2018, Additional history exists DM Retinal Exam (Yearly) 07/07/2019 07/07/2018, 07/27/2017, 08/10/2016 Goals Goal Patient Associated Recent Progress Patient-Stat Aut hor Goal Type Problems ed? Eat Healthy Lifestyle No Henny Gonsalez Implants Device Identifier Shelf Expiration Date Model / Serial / L ot Implanted Type Area Manufactur er 09/20/2018 [id number] / / [id number] Endoclip Ii Clip N/A: Abdomen COVIDIEN Implanted: Qty: 1 on 11/15/2015 by Enrico Live MD at [facility] Results Not on fileafter 06/17/2019 Insurance Type Payer Benefit Subscriber ID Effective Phone Address Plan / Dates Group [facility] SELF-PAY SELF-PAY xxxxxxxxx 2018-P [phone] [id number] [place] [address] Guarantor Name Account Relation to Date of Phone Tannerin g Address Type Patient BREA FRANKLIN Personal/F Head of 02/24/1973 [address] [place] Household (Home) [place], [place] [address] (Self)
--- OUTSIDE RECORDS SUMMARY | 2020-06-20 19:15 | XMS REPORT | Continuity of Care Document ---
Author Author [facility] t Organization [facility] Address [address] [place] [address] Phone Unavailable Care Team Providers Care Machine Feeder Name Role Phone ALEXIS MARY PCP Maye DYKES Attphys Unavailable GLORIA COOPER Attphys Unavailable Christopher HASTINGS Attphys Unavailable EDAChanel Attphys Unavailable Payers Payer Name Policy Type Policy Number Effective Date Expiration Date S ource Problems Condition Name Condition Details Condition Category Status Onset Date Resolution Date Last Treatment Date Treating Clinician Comments Source Elevated blood pressure reading without diagnosis of h ypertension Elevated blood pressure reading without diagnosis of hypertension Disease Active 2018-07-07 00:00:00 [facility] Generalized abdominal pain Generalized abdominal pain Disease Active 2018-06-17 00:00:00 [facility] Hydrosalpinx Hydrosalpinx Disease Active 2017-12-20 00:00:00 [facility] Inadequately controlled diabetes mellitus Inadequately controlled diabetes mellitus Disease Active 2017-12-20 00:00:00 [facility] Pelvic pain Pelvic pain Disease Active 2017-07-06 00:00:00 [facility] Screening mammogram, encounter for Screening mammogram, encounte r for Disease Active 2017-07-06 00:00:00 [facility] History of vitamin D deficiency History of vitamin D deficiency Dis ease Active 2017-03-15 00:00:00 [facility] ealth CANDY positive CANDY positive Disease Active 2017-03-15 00:00:00 [facility] Right tennis elbow Right tennis elbow Disease Active 2017-03-15 00:00:0 0 [facility] Polyarthralgia Polyarthralgia Disease Active 2017-03-15 00:00:00 [facility] Controlled type 2 diabetes mellitus with out complication, without long-term current use of insulin Controlled type 2 diabetes mellitus with out complication, without long-term current use of insulin Disease Active 2017-03-15 00:00: 00 [facility] Abnormal CBC Abnormal CBC Disease Active 2016-11-19 00:00:00 [facility] Arthralgia Arthralgia Disease Active 2016-11-17 00:00:00 [facility] History of laparoscopic cholecystectomy History of laparosco pic cholecystectomy Disease Active 2015-11-26 00:00:00 [facility] Gallstones Gallstones Disease Active 2015-11-04 00:00:00 [facility] Fatty liver Fatty liver Disease Active 2015-09-12 00:00:00 [facility] Overweight (BMI 25.0-29.9) Overweight (BMI 25.0-29.9) Disease Active 2015-09-12 00:00:00 [facility] Abdominal pain Abdominal pain Disease Active 2015-08-05 00:00:00 [facility] Hyperlipidemia-controlled with med Hyperlipidemia-controlled wit h med Disease Active 2014-07-08 00:00:00 [facility] De Quervain's disease (tenosynovitis) De Quervain's disease (tenosynovitis) Disease Active 2014-07-08 00:00:00 [facility] Diabetes mellitus type II, uncontrolled Diabetes mellitus ty pe II, uncontrolled Disease Active 2014-04-12 00:00:00 [facility] Obesity Obesity Disease Active 2014-04-12 00:00:00 [facility] Obesity, Unspecified- as of 03/2014 ref to nut done Obe sity, Unspecified- as of 03/2014 ref to nut done Disease Active 2006-09-13 00:00:00 [facility] Gastroenteritis Problem Active [facility] Allergies, Adverse Reactions, Alerts Allergy Name Allergy Type Status Severity Reaction(s) Onset Date Inacti ve Date Treating Clinician Comments Source No Known Allergies DA Active U 2020-05-12 00:00:00 [facility] No Known Allergies DA Active U 2019-03-30 00:00:00 [facility] No Known Allergies DA Active U 2017-05-03 00:00:00 [facility] Family History Family Member Diagnosis Comments Start Date Stop Date Source Natural father Diabetes Clemente Hea lt Natural father Hypertension [facility] ob[facility]na Paternal grandfather Stroke [facility] Social History Social Habit Start Date Stop Date Quantity Comments Source History of tobacco use Cigar Smoker [facility] Sex Assigned At [facility] Alcohol intake 2019-04-25 00:00:00 2019-04-25 00:00:00 Current drinker of alcohol (finding) [facility] History SDOH Food Worry 2018-07-07 00:00:00 2018-07-07 00:00:00 1 [facility] SDOH Food Scarcity 2018-07-07 00:00:00 2018-07-07 00:00:00 1 [facility] Tobacco Comment 2014-04-12 00:00:00 2014-04-12 00:00:00 quit 2009 edda sivakumar [facility] Alcohol Comment 2014-04-12 00:00:00 2014-04-12 00:00:00 3 beers onc e in a month [facility] Smoking Status Start Date Stop Date Source Former smoker 2019-04-25 00:00:00 2019-04-25 00:00:00 [facility] Medications Ordered Medication Name Filled Medication Name Start Date Stop Da te Current Medication? Ordering Clinician Indication Dosage Frequency Signature (SIG) Comments Components Source Ondansetron Hcl (Zofran*) 4 Mg TABLET Ondansetron Hcl (Zofra n*) 4 Mg TABLET 2019-09-21 14:16:00 Yes 4 Every 6 Hours as n eeded for Nausea [facility] Dicyclomine Hcl Dicyclomine Hcl 2019-04-05 08:53:00 Yes 20 Four Times Daily [facility] ASPIRIN 81 MG CHEWABLE TAB 2018-07-07 14:51:33 Yes chew 1 tablet (81 mg) by oral route once daily [facility] dexlansoprazole (DEXILANT) 60 mg delayed release capsule 2018-07-07 00:00:00 Yes Abdominal pain, epigastric 60mg QD Take 1 capsul e by mouth daily. [facility] ibuprofen (MOTRIN) 800 mg tablet 2018-06-18 00:00:00 Yes Left sided abdominal pain 800mg Take 1 tablet by mouth every 8 h ours as needed for Pain. [facility] linagliptin (TRADJENTA) 5 mg tablet 2018-03-28 00:00:00 Yes Inadequately controlled diabetes mellitus 5mg QD Take 1 tablet by mouth daily. [facility] simvastatin (ZOCOR) 20 mg tablet 2018-03-28 00:00:00 Yes Inadequately controlled diabetes mellitus 20mg Take 1 tablet by mo uth at bedtime nightly. [facility] metFORMIN (GLUCOPHAGE) 500 mg tablet 2018-03-28 00:00:00 Yes Inadequately controlled diabetes mellitus 1000mg Take 2 tabl ets by mouth 2 times daily (with meals). [facility] lancets 28 gauge 2017-10-03 00:00:00 Yes Inadequately controlled diabetes mellitus Check blood glucose 2 times weekly. [facility] blood glucose test strips 2017-10-03 00:00:00 Yes Inadequately controlled diabetes mellitus Check blood glucose 2 times weekly. [facility] blood glucose meter 2014-04-12 00:00:00 Yes Diabetes mellitus type II, uncontrolled Use as directed.. [facility] alcohol swabs PadM 2014-04-12 00:00:00 Yes Diabetes mellitus type II, uncontrolled Apply to affected area. [facility] Metformin Hcl Metformin Hcl Yes [address] [facility] Immunizations Ordered Immunization Name Filled Immunization Name Date Status Comments Source Influenza Vaccine 2016-11-17 00:00:00 Completed [facility] Influenza Vaccine 2015-09-12 00:00:00 Completed [facility] Influenza Vaccine 2014-11-06 00:00:00 Completed [facility] Tdap Tetanus, diphtheria, acellular pertussis Vaccine 2014-04-12 00:00:00 Completed [facility] Pneumoccoccal 2009-07-22 00:00:00 Completed [facility] Vital Signs Vital Name Observation Time Observation Value Comments Source Weight 2020-06-17 14:27:00 170 [lb_av] [facility] BMI (Body Mass Index) 2020-06-17 14:27:00 30.1 kg/m2 [facility] Body Temperature 2019-09-21 14:53:00 98.1 [degF] [facility] Procedures Procedure Date / Time Performed Performing Clinician Sourc e Computed tomography of abdomen and pelvis with contrast 00:00:00 [facility] Computed tomography of abdomen and pelvis with contrast 2018 00:00:[address] [facility] Plan of Care Planned Activity Planned Date Details Comments Source [facility] Scheduled Test 2019-07-07 00:00:00 Hemoglobin A1c maddy surement (procedure) [code = 38328908] [facility] Scheduled Test 2019-07-07 00:00:00 DM Retinal Exam (Y early) [code = DM Retinal Exam (Yearly)] [facility] Scheduled Test 2019-07-06 00:00:00 Urine screening fo r protein (procedure) [code = 850287113] [facility] Scheduled Test 2019-01-18 00:00:00 Breast Cancer Scrn (Yearly) [code = Breast Cancer Scrn (Yearly)] [facility] Scheduled Test 2018-07-27 00:00:00 DM Foot Exam (Year ly) [code = DM Foot Exam (Yearly)] [facility] Abdominal Pain - Adult [facility] Start Date/Time End Date/Time Encounter Type Admission Type [facility] Care Department Encounter ID Source 2020-06-17 14:29:00 2020-06-17 16:58:00 Departed Emergency Room 1 FIDENCIO DYKESDA [facility] [id number] [facility] 2020-02-04 17:36:00 2020-02-04 17:36:00 Emergency E [facility]SE [facility]SE [id number] 2019-09-21 10:20:00 2019-09-21 14:55:00 Departed Emergency Room 1 GLORIA COOPER [facility] [id number] [facility] 2019-09-20 07:03:00 2019-09-20 07:03:00 Emergency E MHSE MHSE [id number] 2019-09-19 06:56:00 2019-09-19 06:56:00 Emergency E MHSE MHSE [id number] 2019-04-21 18:25:00 2019-04-21 18:25:00 Emergency E MHSE MHSE [id number] 2019-04-05 05:37:00 2019-04-05 09:01:00 Departed Emergency Room 1 MARIAH HASTINGS [facility] [id number] [facility] 2018-11-17 12:00:00 2018-11-17 13:23:00 Departed Emergency Room [facility] [id number] [facility] 2018-07-27 00:00:00 2018-07-27 00:00:00 Outpatient [facility] [id number] [facility] 2018-07-21 00:00:00 2018-07-21 00:00:00 Outpatient [facility] [id number] [facility] 2018-07-13 08:23:20 2018-07-13 08:23:20 Outpatient [facility] [id number] [facility] 2018-07-07 16:01:40 2018-07-07 16:01:40 Outpatient [facility] [id number] [facility] 2018-07-07 15:27:50 2018-07-07 15:27:50 Outpatient [facility] [id number] [facility] 2018-07-07 14:04:14 2018-07-07 14:04:14 Outpatient [facility] [id number] [facility] 2018-07-06 14:42:45 2018-07-06 14:42:45 Outpatient [facility] [id number] [facility] 2018-07-06 14:19:48 2018-07-06 14:19:48 Outpatient [facility] [id number] [facility] 2018-06-18 00:54:36 2018-06-18 00:54:36 Emergency [facility] [id number] [facility] 2018-06-17 16:40:08 2018-06-17 16:40:08 Emergency [facility] [id number] [facility] 2018-06-17 14:27:49 2018-06-17 14:27:49 Emergency [facility] [id number] [facility] 2018-05-31 18:38:00 2018-05-31 20:42:00 Departed Emergency Room 1 TYLER VERAS [facility] [id number] [facility] 2018-05-16 00:00:00 2018-05-16 00:00:00 Outpatient [facility] [id number] [facility] 2018-05-03 00:00:00 2018-05-03 00:00:00 Outpatient [facility] [id number] [facility] 2018-04-28 00:00:00 2018-04-28 00:00:00 Outpatient [facility] [id number] [facility] 2018-04-25 00:00:00 2018-04-25 00:00:00 Outpatient [facility] [id number] [facility] 2018-04-12 00:00:00 2018-04-12 00:00:00 Outpatient [facility] [id number] [facility] 2018-03-30 14:22:02 2018-03-30 14:22:02 Outpatient [facility] [id number] [facility] 2018-03-28 15:54:26 2018-03-28 15:54:26 Outpatient [facility] [id number] [facility] 2018-02-10 00:00:00 2018-02-10 00:00:00 Outpatient [facility] [id number] [facility] 2018-01-30 00:00:00 2018-01-30 00:00:00 Outpatient [facility] [id number] [facility] 2018-01-23 00:00:00 2018-01-23 00:00:00 Outpatient [facility] [id number] [facility] 2018-01-18 13:58:31 2018-01-18 13:58:31 Outpatient [facility] [id number] [facility] 2018-01-18 10:06:38 2018-01-18 10:06:38 Outpatient [facility] [id number] [facility] 2018-01-13 15:29:48 2018-01-13 15:29:48 Outpatient [facility] [id number] [facility] 2018-01-11 00:00:00 2018-01-11 00:00:00 Outpatient [facility] [id number] [facility] 2018-01-09 00:00:00 2018-01-09 00:00:00 Outpatient [facility] [id number] [facility] 2017-12-20 12:52:04 2017-12-20 12:52:04 Outpatient [facility] [id number] [facility] 2017-12-01 00:00:00 2017-12-01 00:00:00 Outpatient [facility] [id number] [facility] 2017-11-22 00:00:00 2017-11-22 00:00:00 Outpatient [facility] [id number] [facility] 2017-10-20 00:00:00 2017-10-20 00:00:00 Outpatient [facility] [id number] [facility] 2017-10-11 00:00:00 2017-10-11 00:00:00 Outpatient [facility] [id number] [facility] 2017-10-05 13:31:57 2017-10-05 13:31:57 Outpatient [facility] [id number] [facility] 2017-10-03 00:00:00 2017-10-03 00:00:00 Outpatient [facility] [id number] [facility] 2017-09-30 14:11:47 2017-09-30 14:11:47 Outpatient [facility] [id number] [facility] 2017-09-30 12:55:22 2017-09-30 12:55:22 Outpatient [facility] [id number] [facility] 2017-09-29 00:00:00 2017-09-29 00:00:00 Outpatient [facility] [id number] [facility] 2017-08-23 00:00:00 2017-08-23 00:00:00 Outpatient [facility] [id number] [facility] 2017-08-08 08:48:28 2017-08-08 08:48:28 Outpatient [facility] [id number] [facility] 2017-07-27 00:00:00 2017-07-27 00:00:00 Outpatient [facility] [id number] [facility] 2017-07-08 18:22:50 2017-07-08 18:22:50 Outpatient [facility] [id number] [facility] 2017-07-06 09:54:00 2017-07-06 09:54:00 Outpatient [facility] [id number] [facility] 2017-07-06 08:59:03 2017-07-06 08:59:03 Outpatient [facility] [id number] [facility] 2017-06-17 00:00:00 2017-06-17 00:00:00 Outpatient [facility] [id number] [facility] 2017-06-17 00:00:00 2017-06-17 00:00:00 Outpatient [facility] [id number] [facility] 2017-06-06 00:00:00 2017-06-06 00:00:00 Outpatient [facility] [id number] [facility] 2017-05-06 14:48:23 2017-05-06 14:48:23 Outpatient [facility] [id number] [facility] Results Test Description Test Time Test Comments Results Result Comments Source - CT ABD PELVIS W/CONT 2020-06-20 02:24:00 Reid e: JEAN-PIERRE FRANKLIN [facility] : 1970 Age/S: 50 / F [address] Unit #: [id number] Loc: [facility] [address] Phys: Juan Pablo Aponte MD Acct: [id number] Dis Date: Status: REG ER PHONE #: [phone] Exam Date: 06/20/2020149 FAX #: [phone] Reason: upper abd pain, vomiting EXAMS: CPT CODE: [id number] CT ABD PELVIS W/CONT 40083 Exam: CT abdomen and pelvis with contrast. Location: H 12 History: upper abd pain, vomiting Technique: Enhanced spiral slices were taken from the domes of the diaphragm, through the pubic symphysis. Coronal reformations were performed. One or more of the following dose reduction techniques were used: Automated exposure control, adjustment of the mA and/or kV according to patient size, and/or utilization of iterative reconstruction technique. Findings: The liver is diffusely of decreased attenuation consistent fatty infiltration. No mass is seen. The intra-and extrahepatic biliary tree is normal. The hepatic and portal veins are patent. The gallbladder has been removed. The pancreas is normal. The pancreatic duct is normal in caliber. The spleen and adrenal glands are normal in size and shape. The kidneys are unremarkable. No nephrolithiasis, perinephric fluid collections or hydronephrosis is seen. The large and small intestine are normal in caliber. The appendix is not visualized. No inflammatory change is identified. No lymphadenopathy or free fluid is found in the abdomen or the pelvis. The uterus has been removed. The pelvic structures are otherwise unremarkable. The lung bases are clear. No incidental findings are noted. Impression: 1. No acute abdominal findings. 2. Status post cholecystectomy. 3. Fatty liver. 4. Status post hysterectomy. PAGE 1 Signed Report (CONTINUED) Name: JEAN-PIERRE FRANKLIN [facility] : 1970 Age/S: 50 / F [address] Unit #: [id number] Loc: STEF[facility]IA [place] [address] Phys: Juan Pablo Aponte MD Acct: [id number] Dis Date: Status: REG ER PHONE #: [phone] Exam Date: 06/20/2020149 FAX #: [phone] Reason: upper abd pain, vomiting EXAMS: CPT CODE: [id number] CT ABD PELVIS W/CONT 28020 <Continued> at 0224 Reported and signed by: Filemon Mercer M.D. CC: Alexis Mary MD; Juan Pablo Aponte MD Technologist:JOSÉ NAVARRETE RT; STEPAN AT [facility]: DLP: Trnscb Date/Time: 06/20/2020 (223) [email or web address] Orig Print D/T: S: 06/20/2020 (226) PAGE 2 Signed Report BASIC METABOLIC PANEL 2020-06-20 01:24:00 Test Item SODIUM (test code = NA) 127 mmol/L 136-145 L POTASSIUM (test code = K) 4.8 mmol/L 3.5-5.1 N CHLORIDE (test code = CL) 96.0 mmol/L 98-107 L CARBON DIOXIDE (test code = CO2) 10.0 mmol/L 21-32 L ANION GAP (test code = GAP) 25.8 10-20 H GLUCOSE (test code = GLU) 383 mg/dL 74-106 H BLOOD UREA NITROGEN (test code = BUN) 28 mg/dL 7-18 H GLOMERULAR FILTRATION RATE (test code = GFR) 48 mL/min >=60 Estimated GFR by using Modified MDRD formula.Chronic kidney disease is defined as either kidney damageor GFR <60 mL/min/1.73 m2 for >3 months. CREATININE (test code = CREAT) 1.20 mg/dL 0.55-1.02 H Note change in reference range due to change in reagent. BUN/CREATININE RATIO (test code = BUN/CREA) 22.6 10-20 H CALCIUM (test code = CA) 9.8 mg/dL 8.5-10.1 N HEPATIC FUNCTION [id number] 01:24:00* Test Item Value Reference Range Interpretation Comments TOTAL PROTEIN (test code = PROT) 9.6 gram/dL 6.4-8.2 H ALBUMIN (test code = ALB) 4.2 g/dL 3.4-5.0 N GLOBULIN (test code = GLOB) 5.4 gram/dL 2.7-4.2 H ALBUMIN/GLOBULIN RATIO (test code = A/G) 0.8 0.75-1.50 N BILIRUBIN TOTAL (test code = BILT) 1.10 mg/dL 0.0-1.0 H BILIRUBIN DIRECT (test code = BILD) 0.10 mg/dL 0.0-0.20 N SGOT/AST (test code = AST) 25 IUnit/L 15-37 N SGPT/ALT (test code = ALT) 43 IUnit/L 12-78 N ALKALINE PHOSPHATASE TOTAL (test code = ALKP) 123 IUnit/L 45-117 H Note change in reference range due to change in reagent. [id number] 01:24:00* Test Item Value Reference Range Interpretation Comments LIPASE (test code = LIP) 171 U/L 73.0-393.0 N HCG SERUM [id number] 01:24:00* Test Item Value Reference Range Interpretation Comments HCG SERUM QUAL (test code = HCGQL) NEGATIVE NEGATIVE This HCGQL test is NOT applicable for MALE patients.Check with nurse about probable order error.If Tumor Marker Test needed, nurse should order test "HCGTU"(Test #550.37236) [id number] 01:24:00* Test Item Value Reference Range Interpretation Comments TROPONIN-I (test code = TROPI) <0.015 ng/mL 0-0.045 N URINALYSIS [id number] 00:24:00* Test Item Value Reference Range Interpretation Comments UA COLOR (test code = COLU) Light-Yellow YELLOW UA APPEARANCE (test code = APPU) CLEAR CLEAR UA GLUCOSE DIPSTICK (test code = DGLUU) >1000 (4+) mg/dL NEGATIVE UA BILIRUBIN DIPSTICK (test code = BILU) NEGATIVE mg/dL NEGATIVE UA KETONE DIPSTICK (test code = KETU) >150 (4+) mg/dL NEGATIVE A UA SPECIFIC GRAVITY (test code = SGU) 1.024 1.001-1.035 UA BLOOD DIPSTICK (test code = JADE) 0.03 mg/dL (Trace) mg/dL NEGATI VE A UA PH DIPSTICK (test code = NETTA) 5.5 5.0-8.0 UA PROTEIN DIPSTICK (test code = PROU) 70 (1+) mg/dL NEGATIVE A UA UROBILINIOGEN DIPSTICK (test code = URO) Normal mg/dL NEGATIVE UA NITRITE DIPSTICK (test code = THUAN) NEGATIVE NEGATIVE UA LEUKOCYTE ESTERASE W REFLEX (test code = LEUUR) NEGATIVE Norma/uL NEGATIVE UA WBC (test code = WBCU) 0-5 per HPF 0-5 UA RBC (test code = RBCU) 0-2 #/HPF 0-5 UA EPITHELIAL CELLS (test code = EPIU) FEW per HPF FEW UA BACTERIA (test code = BACU) NONE SEEN #/HPF NONE UA MUCUS (test code = MUCU) FEW #/LPF FEW Urine Source? Clean CatchLACTIC [id number] 00:10:00* Test Item Value Reference Range Interpretation Comments LACTIC ACID (test code = LACT) 1.8 mmol/L 0.4-1.9 N BASIC METABOLIC [id number] 00:03:00* Test Item Value Reference Range Interpretation Comments SODIUM (test code = NA) 127 mmol/L 136-145 L POTASSIUM (test code = K) 4.8 mmol/L 3.5-5.1 N CHLORIDE (test code = CL) 96.0 mmol/L 98-107 L CARBON DIOXIDE (test code = CO2) 10.0 mmol/L 21-32 L ANION GAP (test code = GAP) 25.8 10-20 H GLUCOSE (test code = GLU) 383 mg/dL 74-106 H BLOOD UREA NITROGEN (test code = BUN) 28 mg/dL 7-18 H GLOMERULAR FILTRATION RATE (test code = GFR) 48 mL/min >=60 Estimated GFR by using Modified MDRD formula.Chronic kidney disease is defined as either kidney damageor GFR <60 mL/min/1.73 m2 for >3 months. CREATININE (test code = CREAT) 1.20 mg/dL 0.55-1.02 H Note change in reference range due to change in reagent. BUN/CREATININE RATIO (test code = BUN/CREA) 22.6 10-20 H CALCIUM (test code = CA) 9.8 mg/dL 8.5-10.1 N HEPATIC FUNCTION [id number] 00:03:00* Test Item Value Reference Range Interpretation Comments TOTAL PROTEIN (test code = PROT) 9.6 gram/dL 6.4-8.2 H ALBUMIN (test code = ALB) 4.2 g/dL 3.4-5.0 N GLOBULIN (test code = GLOB) 5.4 gram/dL 2.7-4.2 H ALBUMIN/GLOBULIN RATIO (test code = A/G) 0.8 0.75-1.50 N BILIRUBIN TOTAL (test code = BILT) 1.10 mg/dL 0.0-1.0 H BILIRUBIN DIRECT (test code = BILD) 0.10 mg/dL 0.0-0.20 N SGOT/AST (test code = AST) 25 IUnit/L 15-37 N SGPT/ALT (test code = ALT) 43 IUnit/L 12-78 N ALKALINE PHOSPHATASE TOTAL (test code = ALKP) 123 IUnit/L 45-117 H Note change in reference range due to change in reagent. [id number] 00:03:00* Test Item Value Reference Range Interpretation Comments LIPASE (test code = LIP) 171 U/L 73.0-393.0 N HCG SERUM [id number] 00:03:00* Test Item Value Reference Range Interpretation Comments HCG SERUM QUAL (test code = HCGQL) NEGATIVE [id number] 00:03:00* Test Item Value Reference Range Interpretation Comments TROPONIN-I (test code = TROPI) <0.015 ng/mL 0-0.045 N COVID 19 INHOUSE [id number] 23:59:00* Test Item Value Reference Range Interpretation Comments COVID 19 INHOUSE AG (test code = [id number]) NEGATIVE CBC W/AUTO [id number] 23:36:00* Test Item Value Reference Range Interpretation Comments WHITE BLOOD CELL (test code = WBC) 17.7 K/mm3 4.5-12.5 H RED BLOOD CELL (test code = RBC) 5.62 mill/mm3 3.7-5.2 H HEMOGLOBIN (test code = HGB) 17.8 gram/dL 11.5-15.5 H HEMATOCRIT (test code = HCT) 50.9 % 36.0-46.0 H MEAN CELL VOLUME (test code = MCV) 90.6 fL 80-98 N MEAN CELL HGB (test code = MCH) 31.7 picogram 27.0-33.0 N MEAN CELL HGB CONCETRATION (test code = MCHC) 35.0 gram/dL 33.0-36. 0 N RED CELL DISTRIBUTION WIDTH (test code = RDW) 12.1 % 11.6-16. 2 N RED CELL DISTRIBUTION WIDTH SD (test code = RDW-SD) 39.6 fL 37 .0-51.0 N PLATELET COUNT (test code = PLT) 411 K/mm3 150-450 N MEAN PLATELET VOLUME (test code = MPV) 10.8 fL 6.7-11.0 N NEUTROPHIL % (test code = NT%) 86.8 % 39.0-69.0 H IMMATURE GRANULOCYTE % (test code = IG%) 0.7 % 0.0-5.0 N LYMPHOCYTE % (test code = LY%) 8.6 % 25.0-55.0 L MONOCYTE % (test code = MO%) 3.7 % 0.0-10.0 N EOSINOPHIL % (test code = EO%) 0.0 % 0.0-5.0 N BASOPHIL % (test code = BA%) 0.2 % 0.0-1.0 N NUCLEATED RBC % (test code = NRBC%) 0.0 % 0-0 N NEUTROPHIL # (test code = NT#) 15.38 K/mm3 1.8-7.7 H IMMATURE GRANULOCYTE # (test code = IG#) 0.13 x10 3/uL 0-0.03 H LYMPHOCYTE # (test code = LY#) 1.53 K/mm3 1.0-5.0 N MONOCYTE # (test code = MO#) 0.65 K/mm3 0-0.8 N EOSINOPHIL # (test code = EO#) 0.00 K/mm3 0.0-0.5 N BASOPHIL # (test code = BA#) 0.04 K/mm3 0.0-0.2 N NUCLEATED RBC # (test code = NRBC#) 0.00 K/mm3 0.0-0.1 N MANUAL DIFF REQUIRED (test code = MDIFF) NO - XR CHEST 1 [id number] 23:34:00 FAX: Alexis Alvares MD [phone] [place]: B St: REG FAX: Juan Pablo Aponte MD [phone] Name: JEAN-PIERRE FRANKLIN [facility] : 1970 Age/S: 50/F [address] [facility]: [id number] Loc: [place] [address] Phys: Juan Pablo Aponte MD Acct: [id number] Dis Date: Status: REG ER PHONE #: [phone] Exam Date: 2020 2320 FAX #: [phone] Reason: CODE SEPSIS EXAMS: CPT CODE: [id number] XR CHEST 1 V 45068 EXAM: - XR CHEST 1 V HISTORY: Fever. COMPARISON: May 12, 2020. FINDINGS: Single AP view of the chest is provided. Heart size and vascularity are within normal limits. The lungs are clear of focal consolidation. No effusion, pneumothorax, or acute osseous abnormality. IMPRESSION: No radiographic evidence of acute cardiopulmonary process. at 6169 Reported and signed by: Yong Pereira MD CC: Alexis Mary MD; Juan Pablo Aponte MD Technologist: Haley Locke Trnkyrd Date/Time/By: 2020 (9262) : By: [email or web address] Orig Print D/T: S: 2020 (0344) PAGE [address] ABDOMEN/PELVIS [id number] 16:13:00 [place] [address] Patient Name: JEAN-PIERRE FRANKLIN MR #: [id number] : 1970 Age/Sex: 49/F Req #: [id number] Adm Physician: Ordered by: ARNOLDO DYKES MD Report #: [id number] Location: ER Room/Bed: Procedure: [id number] CT/CT ABDO MEN/PELVIS W Exam Date: 06/17/20 Exam Time: 1556 REPORT STATUS: Signed EXAM: CT Abdo men and Pelvis WITH intravenous contrast INDICATION: Abdominal pain COMPARISON: CT abdomen and pelvis of 09/21/2019 TECHNIQUE: Abdomen and pelvi s were scanned utilizing a multidetector helical scanner from the lung base to the pubic symphysis after administration of IV contrast. Coronal and sagittal reformations were obtained. Routine protocol was performed. Scan was performed during portal venous phase. IV CONTRAST: 100mL of Isovue 370 ORAL CONTRAST: None RADIATION DOSE: Total DLP: 820 mGy*cm Dose modulatio n, iterative reconstruction, and/or weight based adjustment of the mA/kV was u tilized to reduce the radiation dose to as low as reasonably achievable. FINDINGS: LOWER THORAX: Normal. HEPATOBILIARY: Diffuse hepatic steatosis. No focal liver lesion. No biliary ductal dilation Status post cholecystectomy. SPLEEN: No splenomegaly. PANCREAS: No focal masses or ductal dilata tion. ADRENALS: No adrenal nodules. KIDNEYS/URETERS: Irregularity at the posterior margin of the upper pole of the right kidney, possible postoperative versus congenital. No hydronephrosis or renal calculi. PELVIC ORGANS/BLADDE R: Hysterectomy. PERITONEUM / RETROPERITONEUM: No free air or fluid. LYMP H NODES: No lymphadenopathy. VESSELS: Unremarkable. GI TRACT: No abnormal bowel thickening. No bowel obstruction. Normal appendix. BONES AND SOFT TI SSUES: No acute osseous injury. No suspicious lytic or blastic lesions. I MPRESSION: No acute findings in the abdomen or pelvis. Diffuse hepatic s teatosis. Signed by: Jeane Padilla MD on 06/17/2020 4:23 PM Dictated By: JEANE PADILLA MD 22 Tr anscribed By: REAGAN on 06/17/201622 COPY TO: ARNOLDO DYKES MD CHEST SINGLE (PORTABLE)2020-06-17 15:10:00 [place] [address] Patient Name: JEAN-PIERRE FRANKLIN MR #: [id number] : 1970 Age/Sex: 49/F Req #: [id number] Adm Physician: Ordered by: ARNOLDO DYKES MD Report #: [id number] Location: ER Room/Bed: Procedure: [id number] DX/CHEST S MIGUEL (PORTABLE) Exam Date: 06/17/20 Exam Time: 1430 REPORT STATUS: Signed EXAMINATI ON: CHEST SINGLE (PORTABLE) INDICATION: Abdominal pain COMPARISON : None FINDINGS: LINES/TUBES:None LUNGS:The lungs are well-i nflated. No focal consolidation or pulmonary edema. PLEURA:No pleural effus ion or pneumothorax. MEDIASTINUM:The cardiomediastinal silhouette appears n ormal in size and shape. BONES/SOFT TISSUES:No acute osseous injury. A BDOMEN:No free air under the diaphragm. IMPRESSION: No focal pneumoni a or pulmonary edema. Signed by: Jeane Padilla MD on 06/17/2020 3:11 PM Dictated By: JEANE PADILLA MD 10 Transcribed By: REAGAN on 06/17/201510 COPY TO: ARNOLDO DYKES MD Urine color lnsanegoykavx1100-02-53 14:35:00* Test Item Value Reference Range Interpretation Comments Urine Color (test code = 5778-6) YELLOW YELLOW [facility] juecrtq3228-78-44 14:35:00* Test Item Value Reference Range Interpretation Comments Urine Clarity (test code = 21020-9) SL CLOUDY CLEAR [facility] Urine by Test strip 2020-06-17 14:35:00* Test Item Value Reference Range Interpretation Comments Urine Specific [place] (test code = 5811-5) 1.020 1.010-1.[address] [facility] pH measurement by automated test gykqs8368-19-64 14:35:00* Test Item Value Reference Range Interpretation Comments Urine pH (test code = 28266-8) 7 5-7 [facility] HospitalU[facility] leukocyte esterase detection by cfzfrfog0335-81-30 14:35:00* Test Item Value Reference Range Interpretation Comments Urine Leukocyte Esterase (test code = 5799-2) NEGATIVE NEGATIVE [facility] HospitalU[facility] nitrite xwuynlprp3839-68-02 14:35:00* Test Item Value Reference Range Interpretation Comments Urine Nitrite (test code = 16662-3) NEGATIVE NEGATIVE [facility] HospitalU[facility] protein measurement by test strip (mass/volume)2020-06-17 14:35:00* Test Item Value Reference Range Interpretation Comments Urine Protein (test code = 5804-0) 2+ NEGATIVE [facility] HospitalUrine glucose zagmgqqqz1018-16-14 14:35:00* Test Item Value Reference Range Interpretation Comments Urine Glucose (UA) (test code = 2349-9) 2+ NEGATIVE [facility] HospitalU[facility] ketones detection by automated test mjitw8085-19-31 14:35:00* Test Item Value Reference Range Interpretation Comments Urine Ketones (test code = 63317-5) 2+ NEGATIVE [facility] HospitalU[facility] opiates screening llty8358-66-28 14:35:00* Test Item Value Reference Range Interpretation Comments Urine Opiates Screen (test code = 65289-7) NEGATIVE NEGATIVE ALL TESTS PERFORMED MANUALLY ON [employer] TOX/SEE TESTSt. Luke's Baptist HospitalBarbiturates screen, sscqu2373-88-33 14:35:00* Test Item Value Reference Range Interpretation Comments Urine Barbiturates Screen (test code = 000441779) NEGATIVE NEGA TIVE [facility] HospitalU[facility] phencyclidine detection by screening urvjxc5124-28-88 14:35:00* Test Item Value Reference Range Interpretation Comments Urine Phencyclidine Screen (test code = 91965-3) NEGATIVE NEGAT RAND [facility] HospitalUrine amphetamines detection by screen method > 1000 ng/eQ6803-48-95 14:35:00* Test Item Value Reference Range Interpretation Comments Urine Amphetamines Screen (test code = 02378-4) NEGATIVE NEGATI VE [facility] HospitalFluoroscopic procedure less than one hour idmckasr9546-53-56 14:35:00* Test Item Value Reference Range Interpretation Comments Urine Methamphetamines Screen (test code = Urine Metha mphetamines Screen) NEGATIVE NEGATIVE [facility] HospitalUrine benzodiazepines detection by screening xfklnm5215-96-20 14:35:00* Test Item Value Reference Range Interpretation Comments Urine Benzodiazepines Screen (test code = 89981-6) NEGATIVE NEG ATIVE [facility] HospitalUrine cocaine measurement (mass/volume) 2020-06-17 14:35:00* Test Item Value Reference Range Interpretation Comments Urine Cocaine Screen (test code = 3398-5) NEGATIVE NEGATIVE [facility] HospitalUrine cannabinoids detection by screening phmdee1397-28-01 14:35:00* Test Item Value Reference Range Interpretation Comments Urine Cannabinoids Screen (test code = 24195-7) POSITIVE NEGATI VE THESE RESULTS ARE FOR MEDICAL TREATMENT ONLYTHIS REPORT CONTAINS UNCONFIR MED SCREENING RESULTS*POSITIVE RESULTS WILL BE CONFIRMED BY REFERENCE LAB UPON R EQUEST CUT-OFFDRUG CLASS CONCENTRATION ng/mLAmphetamines 1000Methamphetamines 1000Cocaine 300Opiate 300Phencyc lidine 25Cannabinoid 50Barbiturates 300Benzodiazepine 300Methadone 300 This test p rovides only a screen. Positive results should be repeated by a confirmatory whit[place] t.[facility] HospitalUrine methadone ygqzqq3487-89-66 14:35:00* Test Item Value Reference Range Interpretation Comments Urine Methadone Screen (test code = 42897-2) NEGATIVE NEGATIVE THESE RESULTS ARE FOR MEDICAL TREATMENT ONLYTHIS REPORT CONTAINS UNCONFIR MED SCREENING RESULTS*POSITIVE RESULTS WILL BE CONFIRMED BY REFERENCE LAB UPON R EQUEST CUT-OFFDRUG CLASS CONCENTRATION ng/mLAmphetamines 1000Methamphetamines 1000Cocaine Metabolite 300Opiate 300Phencyc lidine 25Cannabinoid 50Barbiturates 300Benzodiazepine 300M[address]adone [address] HospitalU[facility] urobilinogen measurement by test strip (mass/volume)2020-06-17 14:35:00* Test Item Value Reference Range Interpretation Comments Urine Urobilinogen (test code = 87166-7) 0.2 0.2-1 [facility] HospitalU[facility] total bilirubin measurement (mass/volume)2020-06-17 14:35:00* Test Item Value Reference Range Interpretation Comments Urine Bilirubin (test code = 1978-6) NEGATIVE NEGATIVE [facility] HospitalUrine erythrocytes ufhrmojjp6562-14-21 14:35:00* Test Item Value Reference Range Interpretation Comments Urine Blood (test code = 41898-9) TRACE NEGATIVE [facility] HospitalAutomated urine sediment leukocyte count by microscopy (number/high power field)2020-06-17 14:35:00* Test Item Value Reference Range Interpretation Comments Urine WBC (test code = 5821-4) NONE 0-5 [facility] HospitalErythrocytes detection in urine sediment by light chilcpjycu8074-43-49 14:35:00* Test Item Value Reference Range Interpretation Comments Urine RBC (test code = 59748-2) 0-5 0-5 [facility] HospitalBacteria detection in urine sediment by light pxrjymoseu0082-05-03 14:35:00* Test Item Value Reference Range Interpretation Comments Urine Bacteria (test code = 24726-3) FEW NONE [facility] HospitalEpithelial cells detection in urine sediment by light jmbyhjnyqi8280-22-15 14:35:00* Test Item Value Reference Range Interpretation Comments Urine Epithelial Cells (test code = 06844-5) FEW NONE [facility] HospitalBlood leukocytes automated count (number/volume)2020-06-17 14:31:00* Test Item Value Reference Range Interpretation Comments White Blood Count (test code = 6690-2) 14.77 4.8-10.8 [facility] HospitalBlood erythrocytes automated count (number/volume)2020-06-17 14:31:00* Test Item Value Reference Range Interpretation Comments Red Blood Count (test code = 789-8) 5.51 3.6-5.1 [facility] HospitalBlood hemoglobin measurement (moles/volume)2020-06-17 14:31:00* Test Item Value Reference Range Interpretation Comments Hemoglobin (test code = 00992-5) 16.6 12.0-16.0 [facility] HospitalAutomated blood hematocrit (volume fraction)2020-06-17 14:31:00* Test Item Value Reference Range Interpretation Comments Hematocrit (test code = 4544-3) 47.9 34.2-44.1 [facility] HospitalAutomated erythrocyte mean corpuscular ikcqpg7870-89-53 14:31:00* Test Item Value Reference Range Interpretation Comments Mean Corpuscular Volume (test code = 787-2) 86.9 81-99 [facility] HospitalAutomated erythrocyte mean corpuscular hemoglobin (mass per erythrocyte)2020-06-17 14:31:00* Test Item Value Reference Range Interpretation Comments Mean Corpuscular Hemoglobin (test code = 785-6) 30.1 28-32 [facility] HospitalAutomated erythrocyte mean corpuscular hemoglobin concentration measurement (mass/volume)2020-06-17 14:31:00* Test Item Value Reference Range Interpretation Comments Mean Corpuscular Hemoglobin Concent (test code = 786-4) 34.7 31-35 [facility] HospitalRDW XtfNs-Hdg3934-39-28 14:31:00* Test Item Value Reference Range Interpretation Comments Red Cell Distribution Width (test code = 01228-3) 11.9 11.7 -14.4 [facility] HospitalAutomated blood platelet count (count/volume)2020-06-17 14:31:00* Test Item Value Reference Range Interpretation Comments Platelet Count (test code = 777-3) 344 140-360 [facility] HospitalAutcrawley memorial hospitaled blood segmented neutrophil count as percentage of total gjflopbyyy4430-66-42 14:31:00* Test Item Value Reference Range Interpretation Comments Neutrophils (%) (Auto) (test code = 51536-6) 82.4 38.7-80.0 [facility] HospitalAutomated blood lymphocyte count as percentage ot total nylbjbpcxz3348-81-84 14:31:00* Test Item Value Reference Range Interpretation Comments Lymphocytes (%) (Auto) (test code = 736-9) 9.6 18.0-39.1 [facility] HospitalAutomated blood monocyte count as percentage of total bgilllynvu8699-35-67 14:31:00* Test Item Value Reference Range Interpretation Comments Monocytes (%) (Auto) (test code = 5905-5) 4.7 4.4-11.3 [facility] HospitalAutomated blood eosinophil count as percentage of total qmcnjzextu7574-21-60 14:31:00* Test Item Value Reference Range Interpretation Comments Eosinophils (%) (Auto) (test code = 713-8) 2.2 0.0-6.0 [facility] HospitalAutomated blood basophil count as percentage of total sbrukopnrb2780-71-01 14:31:00* Test Item Value Reference Range Interpretation Comments Basophils (%) (Auto) (test code = 706-2) 0.6 0.0-1.0 [facility] HospitalFluoroscopic procedure less than one hour yvouxuke0274-89-12 14:31:00* Test Item Value Reference Range Interpretation Comments IM GRANULOCYTES % (test code = IM GRANULOCYTES %) 0.5 0.0- 1.0 [facility] HospitalAutomated blood neutrophil count 2020-06-17 14:31:00* Test Item Value Reference Range Interpretation Comments Neutrophils # (Auto) (test code = 751-8) 12.2 2.1-6.9 [facility] HospitalBlood lymphocytes count (number/volume) 2020-06-17 14:31:00* Test Item Value Reference Range Interpretation Comments Lymphocytes # (Auto) (test code = 23163-9) 1.4 1.0-3.2 [facility] HospitalBlst. francis medical center monocytes automated count (number/volume)2020-06-17 14:31:00* Test Item Value Reference Range Interpretation Comments Monocytes # (Auto) (test code = 742-7) 0.7 0.2-0.8 [facility] HospitalAutomated blood eosinophil count 2020-06-17 14:31:00* Test Item Value Reference Range Interpretation Comments Eosinophils # (Auto) (test code = 711-2) 0.3 0.0-0.4 [facility] HospitalAutomated blood basophil count (count/volume)2020-06-17 14:31:00* Test Item Value Reference Range Interpretation Comments Basophils # (Auto) (test code = 704-7) 0.1 0.0-0.1 [facility] HospitalFluoroscopic procedure less than one hour wvhiabfm9033-91-23 14:31:00* Test Item Value Reference Range Interpretation Comments Absolute Immature Granulocyte (auto (whitney t code = Absolute Immature Granulocyte (auto) 0.08 0-0.1 [facility] HospitalProthrombin time (PT) in platelet poor plasma by coagulation elhef5818-96-30 14:31:00* Test Item Value Reference Range Interpretation Comments Prothrombin Time (test code = 5902-2) 11.3 11.9-14.5 [facility] HospitalINR in Platelet poor plasma by Coagulation gfnzv3626-18-42 14:31:00* Test Item Value Reference Range Interpretation Comments Prothromb Time International Ratio (test code = 6301-6) 0.79 Oral Anticoagulant Therapy INR Values:1. Low Intensity Therapy 1.5 - 2.02 . Moderate Intensity Therapy 2.0 - 3.03. High Intensity Therapy(1) 2.5 - 3. 54. High Intensity Therapy(2) 3.0 - 4.05. Panic Value INR > 5.0 [facility] HospitalActivated partial thromboplastin time (aPTT) in platelet poor plasma by coagulation vkvnx3316-14-68 14:31:00* Test Item Value Reference Range Interpretation Comments Activated Partial Thromboplast Time (test code = 00810-0) 24.9 23.8-35.5 [facility]ererum or plasma sodium measurement (moles/volume)2020-06-17 14:31:00* Test Item Value Reference Range Interpretation Comments Sodium Level (test code = 2951-2) 140 136-145 [facility] Centererum or plasma potassium measurement (moles/volume)2020-06-17 14:31:00* Test Item Value Reference Range Interpretation Comments Potassium Level (test code = 2823-3) 3.7 3.5-5.1 [facility] Centererum or plasma chloride measurement (moles/volume)2020-06-17 14:31:00* Test Item Value Reference Range Interpretation Comments Chloride Level (test code = 2075-0) 102 98-107 [facility] Centererum or plasma carbon dioxide, total measurement (moles/volume)2020-06-17 14:31:00* Test Item Value Reference Range Interpretation Comments Carbon Dioxide Level (test code = 2028-9) 20 22-29 [facility] Centererum or plasma anion xlt2103-31-51 14:31:00* Test Item Value Reference Range Interpretation Comments Anion Gap (test code = 79773-4) 21.7 8-16 [facility] Centererum or plasma urea nitrogen measurement (mass/volume)2020-06-17 14:31:00* Test Item Value Reference Range Interpretation Comments Blood Urea Nitrogen (test code = 3094-0) 15 7-26 [facility] Centererum or plasma creatinine measurement (mass/volume)2020-06-17 14:31:00* Test Item Value Reference Range Interpretation Comments Creatinine (test code = 2160-0) 0.86 0.57-1.11 [facility] Centererum or plasma urea nitrogen/creatinine mass sjxgk1025-04-58 14:31:00* Test Item Value Reference Range Interpretation Comments BUN/Creatinine Ratio (test code = 3097-3) 17 6-25 [facility] HospitalEstimated glomerular filtration rate (GFR) eaqppexpzacii5235-59-93 14:31:00* Test Item Value Reference Range Interpretation Comments Estimat Glomerular Filtration Rate (test code = 491962639) > 60 >60 Ranges were taken from the National Kidney Disease Education Program and the [facility] Kid[facility] Foundation literature.Reference ranges:60 or greater: Ogqtlf72-87 ( for 3 consecutive months): Chronic kidney disease 15 or less: Kidney failureSt. Luke's Baptist HospitalGlucose ytmdyqptkzc3466-25-53 14:31:00* Test Item Value Reference Range Interpretation Comments Glucose Level (test code = YGP3390) 370 74-118 [facility] Centererum or plasma calcium measurement (mass/volume)2020-06-17 14:31:00* Test Item Value Reference Range Interpretation Comments Calcium Level (test code = 31307-2) 10.6 8.4-10.2 [facility] Centererum or plasma magnesium measurement (mass/volume)2020-06-17 14:31:00* Test Item Value Reference Range Interpretation Comments Magnesium Level (test code = 89594-7) 1.6 1.3-2.1 [facility] Centererum or plasma total bilirubin measurement (mass/volume)2020-06-17 14:31:00* Test Item Value Reference Range Interpretation Comments Total Bilirubin (test code = 1975-2) 1.0 0.2-1.2 [facility] HospitalFluoroscopic procedure less than one hour nwaqqloc3268-96-23 14:31:00* Test Item Value Reference Range Interpretation Comments Aspartate Amino Transf (AST/SGOT) (test code = Aspartate Amino Transf (AST/SGOT)) 30 5-34 [facility] Centererum or plasma alanine aminotransferase measurement (enzymatic activity/volume)2020-06-17 14:31:00* Test Item Value Reference Range Interpretation Comments Alanine Aminotransferase (ALT/SGPT) (test code = 1742-6) 39 0-55 [facility] Centererum or plasma protein measurement (mass/volume)2020-06-17 14:31:00* Test Item Value Reference Range Interpretation Comments Total Protein (test code = 2885-2) 8.6 6.5-8.1 [facility] Centererum or plasma albumin measurement (mass/volume)2020-06-17 14:31:00* Test Item Value Reference Range Interpretation Comments Albumin (test code = 1751-7) 4.5 3.5-5.0 [facility] HospitalPlasma globulin measurement (mass/volume) 2020-06-17 14:31:00* Test Item Value Reference Range Interpretation Comments Globulin (test code = 25083-3) 4.1 2.3-3.5 [facility] Centererum or plasma albumin/globulin mass fzcnq6234-02-23 14:31:00* Test Item Value Reference Range Interpretation Comments Albumin/Globulin Ratio (test code = 1759-0) 1.1 0.8-2.0 [facility] Centererum or plasma alkaline phosphatase measurement (enzymatic activity/volume)2020-06-17 14:31:00* Test Item Value Reference Range Interpretation Comments Alkaline Phosphatase (test code = 6768-6) 119 40-150 [facility] Centererum or plasma creatine kinase measurement (enzymatic activity/volume)2020-06-17 14:31:00* Test Item Value Reference Range Interpretation Comments Creatine Kinase (test code = 2157-6) 70 29-168 [facility] Centererum or plasma creatine kinase MB measurement (mass/volume)2020-06-17 14:31:00* Test Item Value Reference Range Interpretation Comments Creatine Kinase MB (test code = 53920-8) 0.70 0-5.0 [facility] HospitalTroponin I measurement by highly sensitive enzyme pclqbggarsa1301-61-15 14:31:00* Test Item Value Reference Range Interpretation Comments Troponin I (test code = 46201-8) 0.011 0-0.300 [facility]ererum or plasma amylase measurement (enzymatic activity/volume)2020-06-17 14:31:00* Test Item Value Reference Range Interpretation Comments Amylase Level (test code = 1798-8) 49 25-125 [facility] Centererum or plasma lipase measurement (enzymatic activity/volume)2020-06-17 14:31:00* Test Item Value Reference Range Interpretation Comments Lipase (test code = 3040-3) 27 8-78 [facility] HospitalNovel Coronavirus 2019 rMkE4704-60-85 09:51:00* Test Item Value Reference Range Interpretation Comments Novel Coronavirus 2019 nCoV (test code = COVID19) Positive Nega tive A Does patient have the clinical criteria consistent with COVID-19? YIs the patien t going to be discharged home? YSTREPTOCOCCUS PCR HBDSDZ4900-94-71 17:39:00* Test Item Value Reference Range Interpretation Comments STREPTOCOCCUS DYSGALACTIAE (test code = STREPGC) NEGATIVE FOR G/C N EGATIVE STREPA MOLECULAR (test code = STREPAMOL) NEGATIVE FOR GRP A NEGATIV E - XR CHEST 1 T0086-85-94 17:30:00 Name: JEAN-PIERRE FRANKLIN [facility] : 1970 Age/S:49 /F [address] [facility] Unit#:[id number] Loc: [place] [address] Phys: Bryce Richards MD Dis Date: PHONE #: [phone] Status: PRE ER FAX #: [phone] Exam Date: 05/12/2020 Reason: cough sob EXAMS: CPT CODE: [id number] XR CHEST 1 V 37825 EXAM: Chest X-ray, 1 view; CLINICAL HISTORY: Fever, cough and shortness of breath; FINDINGS: The lungs are clear, no infiltrates, no edema; no effusions; no pneumothorax; normal cardiomediastinal silhouette. IMPRESSION: Normal chest x-ray. Location code: [facility] at 1730 Reported and signed by: Lobo Oconnell M.D. CC: Alexis Mary MD; Bryce Richards MD Technologist: Sofiya Nieves Trnscrpt Data: 05/12/2020 (173) [email or web address] Orig Print D/T: S: 05/12/2020 (8017) PAGE 1 Signed Report URINALYSIS [id number] 21:20:00* Test Item Value Reference Range Interpretation Comments UA COLOR (test code = COLU) YELLOW YELLOW UA APPEARANCE (test code = APPU) CLEAR CLEAR UA GLUCOSE DIPSTICK (test code = DGLUU) 100 (1+) mg/dL NEGATIVE A UA BILIRUBIN DIPSTICK (test code = BILU) NEGATIVE mg/dL NEGATIVE UA KETONE DIPSTICK (test code = KETU) 150 (4+) mg/dL NEGATIVE A UA SPECIFIC GRAVITY (test code = SGU) 1.015 1.001-1.035 UA BLOOD DIPSTICK (test code = JADE) neg Levon/uL NEGATIVE UA PH DIPSTICK (test code = NETTA) 6.5 5.0-8.0 UA PROTEIN DIPSTICK (test code = PROU) 30 (1+) mg/dL Neg-15 A UA UROBILINIOGEN DIPSTICK (test code = URO) norm mg/dL 0.0-0.2 UA NITRITE DIPSTICK (test code = THUAN) NEGATIVE NEGATIVE UA LEUKOCYTE ESTERASE DIPSTICK (test code = LEUU) neg uL NEGA TIVE UA WBC (test code = WBCU) 0-2 per HPF 0-5 UA RBC (test code = RBCU) 0-1 per HPF 0-5 UA EPITHELIAL CELLS (test code = EPIU) Few (2-5/hpf) per HPF Few UA BACTERIA (test code = BACU) FEW per HPF NONE Urine Source? Clean CatchDRUGS OF ABUSE SCREEN [id number] 21:20:00* Test Item Value Reference Range Interpretation Comments URN COCAINE (test code = COCAURN) NEGATIVE NEGATIVE URN CANNABINOIDS (test code = CANNABURN) POSITIVE NEGATIVE A URN AMPHETAMINE (test code = AMPHETURN) NEGATIVE NEGATIVE URN BARBITURATE (test code = BARBITURN) NEGATIVE NEGATIVE URN BENZODIAZEPINE (test code = BENZOURN) NEGATIVE NEGATIVE URN OPIATES (test code = OPIATURN) NEGATIVE NEGATIVE URN PHENCYCLIDINE (PCP) (test code = PHENCURN) NEGATIVE NEGATIV E Urine Source? Clean CatchURINALYSIS [id number] 21:19:00* Test Item Value Reference Range Interpretation Comments UA COLOR (test code = COLU) YELLOW YELLOW UA APPEARANCE (test code = APPU) CLEAR CLEAR UA GLUCOSE DIPSTICK (test code = DGLUU) 100 (1+) mg/dL NEGATIVE A UA BILIRUBIN DIPSTICK (test code = BILU) NEGATIVE mg/dL NEGATIVE UA KETONE DIPSTICK (test code = KETU) 150 (4+) mg/dL NEGATIVE A UA SPECIFIC GRAVITY (test code = SGU) 1.015 1.001-1.035 UA BLOOD DIPSTICK (test code = JADE) neg Levon/uL NEGATIVE UA PH DIPSTICK (test code = NETTA) 6.5 5.0-8.0 UA PROTEIN DIPSTICK (test code = PROU) 30 (1+) mg/dL Neg-15 A UA UROBILINIOGEN DIPSTICK (test code = URO) norm mg/dL 0.0-0.2 UA NITRITE DIPSTICK (test code = THUAN) NEGATIVE NEGATIVE UA LEUKOCYTE ESTERASE DIPSTICK (test code = LEUU) neg uL NEGA TIVE UA WBC (test code = WBCU) 0-2 per HPF 0-5 UA RBC (test code = RBCU) 0-1 per HPF 0-5 UA EPITHELIAL CELLS (test code = EPIU) Few (2-5/hpf) per HPF Few UA BACTERIA (test code = BACU) FEW per HPF NONE Urine Source? Clean CatchDRUGS OF ABUSE SCREEN [id number] 21:19:00* Test Item Value Reference Range Interpretation Comments URN COCAINE (test code = COCAURN) NEGATIVE URN CANNABINOIDS (test code = CANNABURN) NEGATIVE URN AMPHETAMINE (test code = AMPHETURN) NEGATIVE URN BARBITURATE (test code = BARBITURN) NEGATIVE URN BENZODIAZEPINE (test code = BENZOURN) NEGATIVE URN OPIATES (test code = OPIATURN) NEGATIVE URN PHENCYCLIDINE (PCP) (test code = PHENCURN) NEGATIV E Urine Source? Clean CatchHCG SERUM [id number] 20:59:00* Test Item Value Reference Range Interpretation Comments HCG SERUM BETA (test code = HCG) 4.0 mIU/ml 0-5.0 N INTERPRETATION:B-HCG LEVELS <6 SHOULD BE CONSIDERED "NEGATIVE."VALUES BETWEEN 6-25 MIU/ML NEED TO BE RETESTED WITHIN 48hrs. 0-1 WEEKS AFTER CONCEPTION 0-50 MIU/ML1-2 WEEKS AFTER CONCEPTION 40-300 MIU/ML2-3 WEEKS AFTER CONCEPTION 100-1,000 MIU/ML3-4 WEEKS AFTER CONCEPTION 500-6,000 MIU/ML1-2 MONTHS AFTER CONCEPTION 5,000-200,000 MIU/ML2-3 MONTHS AFTER CONCEPTION 10,000-100,000 MIU/ML2ND TRIMESTER 3,000-50,000 MIU/ML3RD TRIMESTER 1,000-50,000 MIU/ML BASIC METABOLIC [id number] 20:34:00* Test Item Value Reference Range Interpretation Comments SODIUM (test code = NA) 141 mmol/L 136-145 N POTASSIUM (test code = K) 3.5 mmol/L 3.5-5.1 N CHLORIDE (test code = CL) 104 mmol/L 101-109 N CARBON DIOXIDE (test code = CO2) 25.7 mmol/L 21-32 N ANION GAP (test code = GAP) 15 mmol/L 10-20 N GLUCOSE (test code = GLU) 174 mg/dL 74-106 H BLOOD UREA NITROGEN (test code = BUN) 17 mg/dL 3-21 N GLOMERULAR FILTRATION RATE (test code = GFR) > 60 mL/min >=60 Estimated GFR by using Modified MDRD formula.Chronic kidney disease is defined as either kidney damageor GFR <60 mL/min/1.73 m2 for >3 months. CREATININE (test code = CREAT) 0.80 mg/dL 0.55-1.3 N BUN/CREATININE RATIO (test code = BUN/CREA) 21.3 10-20 H CALCIUM (test code = CA) 9.7 mg/dL 8.4-10.2 N HEPATIC FUNCTION [id number] 20:34:00* Test Item Value Reference Range Interpretation Comments TOTAL PROTEIN (test code = PROT) 7.9 g/dL 6.5-8.4 N ALBUMIN (test code = ALB) 4.0 g/dL 3.4-4.8 N GLOBULIN (test code = GLOB) 3.9 G/DL 1-10 N ALBUMIN/GLOBULIN RATIO (test code = A/G) 1.03 RATIO 0.75-1.50 N BILIRUBIN TOTAL (test code = BILT) 0.50 mg/dL 0.0-1.0 N BILIRUBIN DIRECT (test code = BILD) 0.10 mg/dL 0.0-0.30 N SGOT/AST (test code = AST) 19 U/L 6-32 N SGPT/ALT (test code = ALT) 29 U/L 12-78 N N ote: Change in REFERENCE RANGE due to new reagent method. ALKALINE PHOSPHATASE TOTAL (test code = ALKP) 90 U/L 38-126 N [id number] 20:34:00* Test Item Value Reference Range Interpretation Comments LIPASE (test code = LIP) 164 U/L 128-270 N HCG SERUM [id number] 20:34:00* Test Item Value Reference Range Interpretation Comments HCG SERUM QUAL (test code = HCGQL) NEGATIVE BASIC METABOLIC [id number] 20:34:00* Test Item Value Reference Range Interpretation Comments SODIUM (test code = NA) 141 mmol/L 136-145 N POTASSIUM (test code = K) 3.5 mmol/L 3.5-5.1 N CHLORIDE (test code = CL) 104 mmol/L 101-109 N CARBON DIOXIDE (test code = CO2) 25.7 mmol/L 21-32 N ANION GAP (test code = GAP) 15 mmol/L 10-20 N GLUCOSE (test code = GLU) 174 mg/dL 74-106 H BLOOD UREA NITROGEN (test code = BUN) 17 mg/dL 3-21 N GLOMERULAR FILTRATION RATE (test code = GFR) > 60 mL/min >=60 Estimated GFR by using Modified MDRD formula.Chronic kidney disease is defined as either kidney damageor GFR <60 mL/min/1.73 m2 for >3 months. CREATININE (test code = CREAT) 0.80 mg/dL 0.55-1.3 N BUN/CREATININE RATIO (test code = BUN/CREA) 21.3 10-20 H CALCIUM (test code = CA) 9.7 mg/dL 8.4-10.2 N HEPATIC FUNCTION [id number] 20:34:00* Test Item Value Reference Range Interpretation Comments TOTAL PROTEIN (test code = PROT) 7.9 g/dL 6.5-8.4 N ALBUMIN (test code = ALB) 4.0 g/dL 3.4-4.8 N GLOBULIN (test code = GLOB) 3.9 G/DL 1-10 N ALBUMIN/GLOBULIN RATIO (test code = A/G) 1.03 RATIO 0.75-1.50 N BILIRUBIN TOTAL (test code = BILT) 0.50 mg/dL 0.0-1.0 N BILIRUBIN DIRECT (test code = BILD) 0.10 mg/dL 0.0-0.30 N SGOT/AST (test code = AST) 19 U/L 6-32 N SGPT/ALT (test code = ALT) 29 U/L 12-78 N N ote: Change in REFERENCE RANGE due to new reagent method. ALKALINE PHOSPHATASE TOTAL (test code = ALKP) 90 U/L 38-126 N [id number] 20:34:00* Test Item Value Reference Range Interpretation Comments LIPASE (test code = LIP) 164 U/L 128-270 N HCG SERUM [id number] 20:34:00* Test Item Value Reference Range Interpretation Comments HCG SERUM QUAL (test code = HCGQL) POSITIVE NEGATIVE A This HCGQL test is NOT applicable for MALE patients.Check with nurse about probable order error.If Tumor Marker Test needed, nurse should order test "HCGTU"(Test #550.68334) BASIC METABOLIC [id number] 20:25:00* Test Item Value Reference Range Interpretation Comments SODIUM (test code = NA) 141 mmol/L 136-145 N POTASSIUM (test code = K) 3.5 mmol/L 3.5-5.1 N CHLORIDE (test code = CL) 104 mmol/L 101-109 N CARBON DIOXIDE (test code = CO2) 25.7 mmol/L 21-32 N ANION GAP (test code = GAP) 15 mmol/L 10-20 N GLUCOSE (test code = GLU) 174 mg/dL 74-106 H BLOOD UREA NITROGEN (test code = BUN) 17 mg/dL 3-21 N GLOMERULAR FILTRATION RATE (test code = GFR) > 60 mL/min >=60 Estimated GFR by using Modified MDRD formula.Chronic kidney disease is defined as either kidney damageor GFR <60 mL/min/1.73 m2 for >3 months. CREATININE (test code = CREAT) 0.80 mg/dL 0.55-1.3 N BUN/CREATININE RATIO (test code = BUN/CREA) 21.3 10-20 H CALCIUM (test code = CA) 9.7 mg/dL 8.4-10.2 N HEPATIC FUNCTION [id number] 20:25:00* Test Item Value Reference Range Interpretation Comments TOTAL PROTEIN (test code = PROT) gram/dL 6.4-8.2 ALBUMIN (test code = ALB) g/dL 3.4-5.0 GLOBULIN (test code = GLOB) g/dL 2.7-4.2 ALBUMIN/GLOBULIN RATIO (test code = A/G) 0.75-1.50 BILIRUBIN TOTAL (test code = BILT) mg/dL 0.2-1.2 BILIRUBIN DIRECT (test code = BILD) mg/dL 0.0-0.20 SGOT/AST (test code = AST) IUnit/L 15-37 SGPT/ALT (test code = ALT) U/L 10-69 ALKALINE PHOSPHATASE TOTAL (test code = ALKP) IUnit/L 45-117 [id number] 20:25:00* Test Item Value Reference Range Interpretation Comments LIPASE (test code = LIP) Unit/L 144-286 HCG SERUM [id number] 20:25:00* Test Item Value Reference Range Interpretation Comments HCG SERUM QUAL (test code = HCGQL) NEGATIVE CBC W/O [id number] 20:17:00* Test Item Value Reference Range Interpretation Comments WHITE BLOOD CELL (test code = WBC) 19.7 K/mm3 4.5-12.5 H RED BLOOD CELL (test code = RBC) 4.44 mill/mm3 3.7-5.2 N HEMOGLOBIN (test code = HGB) 14.0 gram/dL 11.5-15.5 N HEMATOCRIT (test code = HCT) 40.3 % 36.0-46.0 N MEAN CELL VOLUME (test code = MCV) 90.8 fL 80-98 N MEAN CELL HGB (test code = MCH) 31.5 picogram 27.0-33.0 N MEAN CELL HGB CONCETRATION (test code = MCHC) 34.7 gram/dL 33.0-36. 0 N RED CELL DISTRIBUTION WIDTH (test code = RDW) 11.8 % 11.6-16. 2 N RED CELL DISTRIBUTION WIDTH SD (test code = RDW-SD) 40.3 fL 37 .0-51.0 N PLATELET COUNT (test code = PLT) 399 K/mm3 150-450 N MEAN PLATELET VOLUME (test code = MPV) 10.2 fL 6.7-11.[address] ABDOMEN/PELVIS [id number] 14:05:00 [place] [id number] Patient Name: JEAN-PIERRE FRANKLIN MR #: [id number] : 1970 Age/Sex: 49/F Req #: [id number] Adm Physician: Ordered by: GLORIA COOPER DO Report #: [id number] Location: ER Room/Bed: Procedure: [id number] CT/CT ABDOMEN/PELVIS W Exam Date: 09/21/19 Exam Time : 1320 REPORT STATUS: Signed EXA M: CT Abdomen and Pelvis WITH intravenous contrast INDICATION: Abdominal pain COMPARISON: CT abdomen and pelvis of 04/05/2019 TECHNIQUE: Abdomen and pelvis were scanned utilizing a multidetector helical scanner from the violetta ng base to the pubic symphysis after administration of IV contrast. Coronal an d sagittal reformations were obtained. Routine protocol was performed. Scan wa s performed during portal venous phase. IV CONTRAST: 100mL of Isovue 3 70 ORAL CONTRAST: Water RADIATION DOSE: Total DLP: 321.5 mGy*cm D ose modulation, iterative reconstruction, and/or weight based adjustment of th e mA/kV was utilized to reduce the radiation dose to as low as reasonably achi evable. FINDINGS: LOWER THORAX: Bibasilar dependent subsegmental atelect asis. No focal consolidation. HEPATOBILIARY: Diffuse hepatic steatosis. N o focal liver lesion. No biliary ductal dilation. Status post cholecystectomy. SPLEEN: No splenomegaly. PANCREAS: No focal masses or ductal dilatati on. ADRENALS: No adrenal nodules. KIDNEYS/URETERS: No hydronephrosis, sto bettie, or solid mass lesions. PELVIC ORGANS/BLADDER: Status post hysterectomy. D istended bladder. PERITONEUM / RETROPERITONEUM: No free air or fluid. LYM PH NODES: No lymphadenopathy. VESSELS: Unremarkable. GI TRACT: No distent ion or wall thickening. BONES AND SOFT TISSUES: No acute osseous injury. No suspicious lytic or blastic lesions. IMPRESSION: No acute findings in the abdomen or pelvis. Diffuse hepatic steatosis. Signed by: Jeane Padilla MD on 09/21/2019 2:10 PM Dictated By: JEANE PADILLA MD Electronically Si gned By: JEANE PADILLA MD on 09/21/19 1410 Transcribed By: REAGAN on 09/21/19 141 0 COPY TO: GLORIA COOPER DO Urine [id number] 13:49:00* Test Item Value Reference Range Interpretation Comments Urine WBC (test code = 5821-4) 0-5 0-5 [facility] [id number] 13:49:00* Test Item Value Reference Range Interpretation Comments Urine RBC (test code = 63515-0) 0-5 0-5 [facility] [id number] 13:49:00* Test Item Value Reference Range Interpretation Comments Urine Bacteria (test code = 02483-8) FEW NONE [facility] Epithelial [id number] 13:49:00 * Test Item Value Reference Range Interpretation Comments Urine Epithelial Cells (test code = 82605-0) FEW NONE [facility] Hyaline [id number] 13:49:00* Test Item Value Reference Range Interpretation Comments Urine Hyaline Casts (test code = 56801-2) 0-1 0-1 [facility] [id number] 13:49:00* Test Item Value Reference Range Interpretation Comments Urine Mucus (test code = 8247-9) FEW RARE H [facility] [id number] 13:06:00* Test Item Value Reference Range Interpretation Comments Urine Color (test code = 5778-6) YELLOW YELLOW [facility] [id number] 13:06:00* Test Item Value Reference Range Interpretation Comments Urine Clarity (test code = 98462-0) CLEAR CLEAR [facility] Specific [id number] 13:06:00 * Test Item Value Reference Range Interpretation Comments Urine Specific [place] (test code = 5811-5) 1.015 1.010-1.[address] [facility] [id number] 13:06:00* Test Item Value Reference Range Interpretation Comments Urine pH (test code = 53228-5) 7 5-7 [facility] Leukocyte [id number] 13:06:00* Test Item Value Reference Range Interpretation Comments Urine Leukocyte Esterase (test code = 21186-9) NEGATIVE NEGATIV E [facility] [id number] 13:06:00* Test Item Value Reference Range Interpretation Comments Urine Nitrite (test code = 49020-8) NEGATIVE NEGATIVE [facility] [id number] 13:06:00* Test Item Value Reference Range Interpretation Comments Urine Protein (test code = 16245-2) NEGATIVE NEGATIVE [facility] Glucose (UA)2019-09-21 13:06:00* Test Item Value Reference Range Interpretation Comments Urine Glucose (UA) (test code = 70720-8) 2+ NEGATIVE H [facility] [id number] 13:06:00* Test Item Value Reference Range Interpretation Comments Urine Ketones (test code = 00222-1) 1+ NEGATIVE H [facility] Zlgmjdzdwjog7519-52-50 13:06:00* Test Item Value Reference Range Interpretation Comments Urine Urobilinogen (test code = 60488-0) 0.2 0.2-1 [facility] [id number] 13:06:00* Test Item Value Reference Range Interpretation Comments Urine Bilirubin (test code = 1977-8) NEGATIVE NEGATIVE [facility] [id number] 13:06:00* Test Item Value Reference Range Interpretation Comments Urine Blood (test code = 65185-3) NEGATIVE NEGATIVE [facility] Opiates [id number] 13:03:00* Test Item Value Reference Range Interpretation Comments Urine Opiates Screen (test code = 17493-8) POSITIVE NEGATIVE H This test provides only a screen. Positive results should be repeated by a confi rmatory test.[facility] Barbiturates Screen 2019-09-21 13:03:00* Test Item Value Reference Range Interpretation Comments Urine Barbiturates Screen (test code = 249813057) NEGATIVE NEGA TIVE [facility] Phencyclidine [id number] 13:03:00* Test Item Value Reference Range Interpretation Comments Urine Phencyclidine Screen (test code = 72357-1) NEGATIVE NEGAT RAND [facility] Amphetamines [id number] 13:03:00* Test Item Value Reference Range Interpretation Comments Urine Amphetamines Screen (test code = 74397-4) NEGATIVE NEGATI VE [facility] Methamphetamines [id number] 13:03:00* Test Item Value Reference Range Interpretation Comments Urine Methamphetamines Screen (test code = Urine Metha mphetamines Screen) NEGATIVE NEGATIVE [facility] Benzodiazepines [id number] 13:03:00* Test Item Value Reference Range Interpretation Comments Urine Benzodiazepines Screen (test code = 74221-0) POSITIVE NEG ATIVE H This test provides only a screen. Positive results should be repeated by a confi rmatory test.[facility] Cocaine Screen 2019-09-21 13:03:00* Test Item Value Reference Range Interpretation Comments Urine Cocaine Screen (test code = 3398-5) NEGATIVE NEGATIVE [facility] Cannabinoids Fgjrhw1379-98-85 13:03:00* Test Item Value Reference Range Interpretation Comments Urine Cannabinoids Screen (test code = 31466-7) POSITIVE NEGATI VE H This test provides only a screen. Positive results should be repeated by a confi rmatory test.[facility] Methadone Screen 2019-09-21 13:03:00* Test Item Value Reference Range Interpretation Comments Urine Methadone Screen (test code = 09967-3) NEGATIVE NEGATIVE THESE RESULTS ARE FOR MEDICAL TREATMENT ONLYTHIS REPORT CONTAINS UNCONFIR MED SCREENING RESULTS*POSITIVE RESULTS WILL BE CONFIRMED BY REFERENCE LAB UPON R EQUEST CUT-OFFDRUG CLASS CONCENTRATION ng/mLAmphetamines 1000Methamphetamines 1000Cocaine Metabolite 300Opiate 300Phencyc lidine 25Cannabinoid 50Barbiturates 300Benzodiazepine [address] HospitalHyaline casts detection in urine sediment by light lalgzrwuxv8784-83-69 12:45:00* Test Item Value Reference Range Interpretation Comments Urine Hyaline Casts (test code = 15138-8) 0-1 0-1 [facility] HospitalMucus detection in urine sediment by light mdwfehilcc2772-39-86 12:45:00* Test Item Value Reference Range Interpretation Comments Urine Mucus (test code = 8247-9) FEW RARE [facility] HospitalCreatine Kinase [id number] 11:49:00* Test Item Value Reference Range Interpretation Comments Creatine Kinase MB (test code = 86841-7) 0.50 0-5.0 [facility] HospitalTroponin [id number] 11:49:00* Test Item Value Reference Range Interpretation Comments Troponin I (test code = YDZ5835) < 0.001 0-0.300 [facility] Yrmpm1578-70-10 11:24:00* Test Item Value Reference Range Interpretation Comments Sodium Level (test code = 2951-2) 135 136-[address] [facility] HospitalPotassium Renkr8213-74-90 11:24:00* Test Item Value Reference Range Interpretation Comments Potassium Level (test code = 2823-3) 3.3 3.5-5.[address] [facility] HospitalChloride Gojxo4359-50-75 11:24:00* Test Item Value Reference Range Interpretation Comments Chloride Level (test code = 2075-0) 97 98-[address] [facility] HospitalCarbon Dioxide Ekvij3609-01-43 11:24:00* Test Item Value Reference Range Interpretation Comments Carbon Dioxide Level (test code = 2028-9) 27 22-29 [facility] HospitalAnion [id number] 11:24:00* Test Item Value Reference Range Interpretation Comments Anion Gap (test code = 11804-6) 14.3 8-16 [facility] HospitalBlood Urea Hgthvpvz3684-06-42 11:24:00* Test Item Value Reference Range Interpretation Comments Blood Urea Nitrogen (test code = 3094-0) 21 7-26 [facility] HospitalCreatinine2019-11-01 11:24:00* Test Item Value Reference Range Interpretation Comments Creatinine (test code = 2160-0) 0.80 0.57-1.11 [facility] HospitalBUN/Creatinine Qjtsl4685-76-54 11:24:00* Test Item Value Reference Range Interpretation Comments BUN/Creatinine Ratio (test code = 3097-3) 26 6-[address] [facility] HospitalEstimat Glomerular Filtration Rate 2019-09-21 11:24:00* Test Item Value Reference Range Interpretation Comments Estimat Glomerular Filtration Rate (test code = 682504949) > 60 >60 Ranges were taken from the National Kidney Disease Education Program and the [facility] [employer] literature.Reference ranges:60 or greater: Qwyybv79-25 ( for 3 consecutive months): Chronic kidney disease 15 or less: Kidney failureSt. Luke's Baptist HospitalGlucose Vbrmc6540-41-29 11:24:00* Test Item Value Reference Range Interpretation Comments Glucose Level (test code = ZBK8636) 199 74-[address] [facility] HospitalCalcium Hfsvk6350-44-77 11:24:00* Test Item Value Reference Range Interpretation Comments Calcium Level (test code = 00671-7) 9.4 8.4-10.2 [facility] HospitalTotal Axauifpwx4469-51-35 11:24:00* Test Item Value Reference Range Interpretation Comments Total Bilirubin (test code = 1975-2) 1.4 0.2-1.[address] [facility] HospitalAspartate Amino Transf (AST/SGOT) 2019-09-21 11:24:00* Test Item Value Reference Range Interpretation Comments Aspartate Amino Transf (AST/SGOT) (test code = Aspartate Amino Transf (AST/SGOT)) 17 5-34 [facility] HospitalAlanine Aminotransferase (ALT/SGPT) 2019-09-21 11:24:00* Test Item Value Reference Range Interpretation Comments Alanine Aminotransferase (ALT/SGPT) (test code = 1742-6) 22 0-55 [facility] HospitalTotal Licdedl5431-76-43 11:24:00* Test Item Value Reference Range Interpretation Comments Total Protein (test code = 2885-2) 7.2 6.5-8.1 [facility] HospitalAlbumin2019-11-01 11:24:00* Test Item Value Reference Range Interpretation Comments Albumin (test code = 1751-7) 4.1 3.5-5.0 [facility] HospitalGlobulin2019-11-01 11:24:00* Test Item Value Reference Range Interpretation Comments Globulin (test code = 72805-1) 3.1 2.3-3.5 [facility] HospitalAlbumin/Globulin Lybmo0985-56-88 11:24:00 * Test Item Value Reference Range Interpretation Comments Albumin/Globulin Ratio (test code = 1759-0) 1.3 0.8-2.0 [facility] HospitalAlkaline Vddyqahewil2882-23-88 11:24:00* Test Item Value Reference Range Interpretation Comments Alkaline Phosphatase (test code = 6768-6) 73 40-150 [facility] HospitalCreatine Wdjvez6263-21-59 11:24:00* Test Item Value Reference Range Interpretation Comments Creatine Kinase (test code = 2157-6) 58 29-168 [facility] HospitalLipase2019-11-01 11:24:00* Test Item Value Reference Range Interpretation Comments Lipase (test code = 3040-3) 27 8-78 [facility] HospitalWhite Blood Dnfvr2653-75-87 11:02:00* Test Item Value Reference Range Interpretation Comments White Blood Count (test code = 6690-2) 11.84 4.8-10.[address] [facility] HospitalRed Blood Qgmao8330-77-61 11:02:00* Test Item Value Reference Range Interpretation Comments Red Blood Count (test code = 789-8) 4.88 3.6-5.1 [facility] HospitalHemoglobin2019-11-01 11:02:00* Test Item Value Reference Range Interpretation Comments Hemoglobin (test code = 60339-4) 15.5 12.0-16.0 [facility] HospitalHematocrit2019-11-01 11:02:00* Test Item Value Reference Range Interpretation Comments Hematocrit (test code = 4544-3) 43.5 34.2-44.1 [facility] HospitalMean Corpuscular Fnraqi7033-88-60 11:02:00* Test Item Value Reference Range Interpretation Comments Mean Corpuscular Volume (test code = 787-2) 89.1 81-99 [facility] HospitalMean Corpuscular Cmtwietgof8371-65-38 11:02:00* Test Item Value Reference Range Interpretation Comments Mean Corpuscular Hemoglobin (test code = 785-6) 31.8 28-32 [facility] HospitalMean Corpuscular Hemoglobin Concent 2019-09-21 11:02:00* Test Item Value Reference Range Interpretation Comments Mean Corpuscular Hemoglobin Concent (test code = 786-4) 35.6 31-[address] [facility] HospitalRed Cell Distribution Zycwb2592-76-50 11:02:00* Test Item Value Reference Range Interpretation Comments Red Cell Distribution Width (test code = 63879-3) 12.0 11.7 -14.4 [facility] HospitalPlatelet Domtm3657-33-33 11:02:00* Test Item Value Reference Range Interpretation Comments Platelet Count (test code = 777-3) 367 140-[address] [facility] HospitalNeutrophils (%) (Auto)2019-09-21 11:02:00 * Test Item Value Reference Range Interpretation Comments Neutrophils (%) (Auto) (test code = 17863-0) 68.6 38.7-80.0 [facility] HospitalLymphocytes (%) (Auto)2019-09-21 11:02:00 * Test Item Value Reference Range Interpretation Comments Lymphocytes (%) (Auto) (test code = 736-9) 22.0 18.0-39.1 [facility] HospitalMonocytes (%) (Auto)2019-09-21 11:02:00* Test Item Value Reference Range Interpretation Comments Monocytes (%) (Auto) (test code = 5905-5) 5.9 4.4-11.3 [facility] HospitalEosinophils (%) (Auto)2019-09-21 11:02:00 * Test Item Value Reference Range Interpretation Comments Eosinophils (%) (Auto) (test code = 713-8) 2.4 0.0-6.0 [facility] HospitalBasophils (%) (Auto)2019-09-21 11:02:00* Test Item Value Reference Range Interpretation Comments Basophils (%) (Auto) (test code = 706-2) 0.8 0.0-1.0 [facility] HospitalIM GRANULOCYTES %2019-09-21 11:02:00* Test Item Value Reference Range Interpretation Comments IM GRANULOCYTES % (test code = IM GRANULOCYTES %) 0.3 0.0- 1.0 [facility] HospitalNeutrophils # (Auto)2019-09-21 11:02:00* Test Item Value Reference Range Interpretation Comments Neutrophils # (Auto) (test code = 751-8) 8.1 2.1-6.[address] [facility] HospitalLymphocytes # (Auto)2019-09-21 11:02:00* Test Item Value Reference Range Interpretation Comments Lymphocytes # (Auto) (test code = 76443-4) 2.6 1.0-3.2 [facility] HospitalMonocytes # (Auto)2019-09-21 11:02:00* Test Item Value Reference Range Interpretation Comments Monocytes # (Auto) (test code = 742-7) 0.7 0.2-0.8 [facility] HospitalEosinophils # (Auto)2019-09-21 11:02:00* Test Item Value Reference Range Interpretation Comments Eosinophils # (Auto) (test code = 711-2) 0.3 0.0-0.4 [facility] HospitalBasophils # (Auto)2019-09-21 11:02:00* Test Item Value Reference Range Interpretation Comments Basophils # (Auto) (test code = 704-7) 0.1 0.0-0.1 [facility] HospitalAbsolute Immature Granulocyte (auto 2019-09-21 11:02:00* Test Item Value Reference Range Interpretation Comments Absolute Immature Granulocyte (auto (whitney t code = Absolute Immature Granulocyte (auto) 0.04 0-0.1 [facility] HospitalGLUBED2019-10-28 22:26:00* Test Item Value Reference Range Interpretation Comments GLUBED (test code = GLUBED) 96 mg/dL 74-106 N Performed by certified asphalt roller operator at [facility] ([facility])[3] URINALYSIS [id number] 20:53:00* Test Item Value Reference Range Interpretation Comments UA COLOR (test code = COLU) Light-Yellow YELLOW UA APPEARANCE (test code = APPU) CLEAR CLEAR UA GLUCOSE DIPSTICK (test code = DGLUU) NEGATIVE mg/dL NEGATIVE UA BILIRUBIN DIPSTICK (test code = BILU) NEGATIVE mg/dL NEGATIVE UA KETONE DIPSTICK (test code = KETU) 40 (2+) mg/dL NEGATIVE A UA SPECIFIC GRAVITY (test code = SGU) 1.021 1.001-1.035 UA BLOOD DIPSTICK (test code = JADE) Negative mg/dL NEGATIVE UA PH DIPSTICK (test code = NETTA) 7.0 5.0-8.0 UA PROTEIN DIPSTICK (test code = PROU) NEGATIVE mg/dL NEGATIVE UA UROBILINIOGEN DIPSTICK (test code = URO) Normal mg/dL NEGATIVE UA NITRITE DIPSTICK (test code = THUAN) NEGATIVE NEGATIVE UA LEUKOCYTE ESTERASE W REFLEX (test code = LEUUR) NEGATIVE Norma/uL NEGATIVE UA WBC (test code = WBCU) 0-5 per HPF 0-5 UA RBC (test code = RBCU) 0-2 #/HPF 0-5 UA EPITHELIAL CELLS (test code = EPIU) FEW per HPF FEW UA BACTERIA (test code = BACU) FEW #/HPF NONE A UA MUCUS (test code = MUCU) FEW #/LPF FEW Urine Source? Clean CatchURINALYSIS [id number] 20:52:00* Test Item Value Reference Range Interpretation Comments UA COLOR (test code = COLU) Light-Yellow YELLOW UA APPEARANCE (test code = APPU) CLEAR CLEAR UA GLUCOSE DIPSTICK (test code = DGLUU) NEGATIVE mg/dL NEGATIVE UA BILIRUBIN DIPSTICK (test code = BILU) NEGATIVE mg/dL NEGATIVE UA KETONE DIPSTICK (test code = KETU) 40 (2+) mg/dL NEGATIVE A UA SPECIFIC GRAVITY (test code = SGU) 1.021 1.001-1.035 UA BLOOD DIPSTICK (test code = JADE) Negative mg/dL NEGATIVE UA PH DIPSTICK (test code = NETTA) 7.0 5.0-8.0 UA PROTEIN DIPSTICK (test code = PROU) NEGATIVE mg/dL NEGATIVE UA UROBILINIOGEN DIPSTICK (test code = URO) Normal mg/dL NEGATIVE UA NITRITE DIPSTICK (test code = THUAN) NEGATIVE NEGATIVE UA LEUKOCYTE ESTERASE W REFLEX (test code = LEUUR) NEGATIVE Norma/uL NEGATIVE UA WBC (test code = WBCU) per HPF 0-5 UA RBC (test code = RBCU) per HPF 0-5 UA EPITHELIAL CELLS (test code = EPIU) per HPF Few UA BACTERIA (test code = BACU) per HPF NONE Urine Source? Clean CatchBASIC METABOLIC [id number] 19:54:00* Test Item Value Reference Range Interpretation Comments SODIUM (test code = NA) 141 mmol/L 136-145 N POTASSIUM (test code = K) 3.8 mmol/L 3.5-5.1 N CHLORIDE (test code = CL) 107.0 mmol/L 98-107 N CARBON DIOXIDE (test code = CO2) 25.0 mmol/L 21-32 N ANION GAP (test code = GAP) 12.8 10-20 N GLUCOSE (test code = GLU) 108 mg/dL 74-106 H BLOOD UREA NITROGEN (test code = BUN) 19 mg/dL 7-18 H GLOMERULAR FILTRATION RATE (test code = GFR) > 60 mL/min >=60 Estimated GFR by using Modified MDRD formula.Chronic kidney disease is defined as either kidney damageor GFR <60 mL/min/1.73 m2 for >3 months. CREATININE (test code = CREAT) 0.80 mg/dL 0.55-1.02 N Note change in reference range due to change in reagent. BUN/CREATININE RATIO (test code = BUN/CREA) 22.8 10-20 H CALCIUM (test code = CA) 9.5 mg/dL 8.5-10.1 N HEPATIC FUNCTION [id number] 19:54:00* Test Item Value Reference Range Interpretation Comments TOTAL PROTEIN (test code = PROT) 8.3 gram/dL 6.4-8.2 H ALBUMIN (test code = ALB) 4.2 g/dL 3.4-5.0 N GLOBULIN (test code = GLOB) 4.1 gram/dL 2.7-4.2 N ALBUMIN/GLOBULIN RATIO (test code = A/G) 1.0 0.75-1.50 N BILIRUBIN TOTAL (test code = BILT) 0.60 mg/dL 0.0-1.0 N BILIRUBIN DIRECT (test code = BILD) 0.12 mg/dL 0.0-0.20 N SGOT/AST (test code = AST) 18 IUnit/L 15-37 N SGPT/ALT (test code = ALT) 26 IUnit/L 12-78 N ALKALINE PHOSPHATASE TOTAL (test code = ALKP) 77 IUnit/L 45-117 N Note change in reference range due to change in reagent. [id number] 19:54:00* Test Item Value Reference Range Interpretation Comments LIPASE (test code = LIP) 119 U/L 73.0-393.0 N HCG SERUM [id number] 19:54:00* Test Item Value Reference Range Interpretation Comments HCG SERUM QUAL (test code = HCGQL) NEGATIVE NEGATIVE This HCGQL test is NOT applicable for MALE patients.Check with nurse about probable order error.If Tumor Marker Test needed, nurse should order test "HCGTU"(Test #550.75666) [id number] 19:54:00* Test Item Value Reference Range Interpretation Comments TROPONIN-I (test code = TROPI) <0.015 ng/mL 0-0.045 N C REACTIVE [id number] 19:22:00* Test Item Value Reference Range Interpretation Comments C REACTIVE PROTEIN (test code = CRP) <0.29 mg/dL 0-0.3 N BASIC METABOLIC [id number] 19:16:00* Test Item Value Reference Range Interpretation Comments SODIUM (test code = NA) 141 mmol/L 136-145 N POTASSIUM (test code = K) 3.8 mmol/L 3.5-5.1 N CHLORIDE (test code = CL) 107.0 mmol/L 98-107 N CARBON DIOXIDE (test code = CO2) mmol/L 21-32 ANION GAP (test code = GAP) 10-20 GLUCOSE (test code = GLU) mg/dL 74-106 BLOOD UREA NITROGEN (test code = BUN) mg/dL 7-18 GLOMERULAR FILTRATION RATE (test code = GFR) mL/min >=60 CREATININE (test code = CREAT) mg/dL 0.55-1.02 BUN/CREATININE RATIO (test code = BUN/CREA) 10-20 CALCIUM (test code = CA) mg/dL 8.5-10.1 HEPATIC FUNCTION [id number] 19:16:00* Test Item Value Reference Range Interpretation Comments TOTAL PROTEIN (test code = PROT) gram/dL 6.4-8.2 ALBUMIN (test code = ALB) g/dL 3.4-5.0 GLOBULIN (test code = GLOB) gram/dL 2.7-4.2 ALBUMIN/GLOBULIN RATIO (test code = A/G) 0.75-1.50 BILIRUBIN TOTAL (test code = BILT) mg/dL 0.0-1.0 BILIRUBIN DIRECT (test code = BILD) mg/dL 0.0-0.20 SGOT/AST (test code = AST) IUnit/L 15-37 SGPT/ALT (test code = ALT) IUnit/L 12-78 ALKALINE PHOSPHATASE TOTAL (test code = ALKP) IUnit/L 45-117 [id number] 19:16:00* Test Item Value Reference Range Interpretation Comments LIPASE (test code = LIP) U/L 73.0-393.0 HCG SERUM [id number] 19:16:00* Test Item Value Reference Range Interpretation Comments HCG SERUM QUAL (test code = HCGQL) NEGATIVE NEGATIVE This HCGQL test is NOT applicable for MALE patients.Check with nurse about probable order error.If Tumor Marker Test needed, nurse should order test "HCGTU"(Test #550.49179) [id number] 19:16:00* Test Item Value Reference Range Interpretation Comments TROPONIN-I (test code = TROPI) ng/mL 0-0.045 BASIC METABOLIC [id number] 19:15:00* Test Item Value Reference Range Interpretation Comments SODIUM (test code = NA) 141 mmol/L 136-145 N POTASSIUM (test code = K) 3.8 mmol/L 3.5-5.1 N CHLORIDE (test code = CL) 107.0 mmol/L 98-107 N CARBON DIOXIDE (test code = CO2) mmol/L 21-32 ANION GAP (test code = GAP) 10-20 GLUCOSE (test code = GLU) mg/dL 74-106 BLOOD UREA NITROGEN (test code = BUN) mg/dL 7-18 GLOMERULAR FILTRATION RATE (test code = GFR) mL/min >=60 CREATININE (test code = CREAT) mg/dL 0.55-1.02 BUN/CREATININE RATIO (test code = BUN/CREA) 10-20 CALCIUM (test code = CA) mg/dL 8.5-10.1 HEPATIC FUNCTION [id number] 19:15:00* Test Item Value Reference Range Interpretation Comments TOTAL PROTEIN (test code = PROT) gram/dL 6.4-8.2 ALBUMIN (test code = ALB) g/dL 3.4-5.0 GLOBULIN (test code = GLOB) gram/dL 2.7-4.2 ALBUMIN/GLOBULIN RATIO (test code = A/G) 0.75-1.50 BILIRUBIN TOTAL (test code = BILT) mg/dL 0.0-1.0 BILIRUBIN DIRECT (test code = BILD) mg/dL 0.0-0.20 SGOT/AST (test code = AST) IUnit/L 15-37 SGPT/ALT (test code = ALT) IUnit/L 12-78 ALKALINE PHOSPHATASE TOTAL (test code = ALKP) IUnit/L 45-117 [id number] 19:15:00* Test Item Value Reference Range Interpretation Comments LIPASE (test code = LIP) U/L 73.0-393.0 HCG SERUM [id number] 19:15:00* Test Item Value Reference Range Interpretation Comments HCG SERUM QUAL (test code = HCGQL) NEGATIVE [id number] 19:15:00* Test Item Value Reference Range Interpretation Comments TROPONIN-I (test code = TROPI) ng/mL 0-0.045 CBC W/O [id number] 19:04:00* Test Item Value Reference Range Interpretation Comments WHITE BLOOD CELL (test code = WBC) 17.2 K/mm3 4.5-12.5 H RED BLOOD CELL (test code = RBC) 4.78 mill/mm3 3.7-5.2 N HEMOGLOBIN (test code = HGB) 15.0 gram/dL 11.5-15.5 N HEMATOCRIT (test code = HCT) 44.7 % 36.0-46.0 N MEAN CELL VOLUME (test code = MCV) 93.5 fL 80-98 N MEAN CELL HGB (test code = MCH) 31.4 picogram 27.0-33.0 N MEAN CELL HGB CONCETRATION (test code = MCHC) 33.6 gram/dL 33.0-36. 0 N RED CELL DISTRIBUTION WIDTH (test code = RDW) 12.2 % 11.6-16. 2 N PLATELET COUNT (test code = PLT) 394 K/mm3 150-450 N MEAN PLATELET VOLUME (test code = MPV) 11.0 fL 6.7-11.0 N - CT ABD PELVIS [id number] 10:24:00 Name: JEAN-PIERRE FRANKLIN [facility] : 1970 Age/S: 49 / F [address] [facility] Unit #: [id number] Loc: [facility] [place] [address] Phys: Hoang Kaplan MD Acct: [id number] Dis Date: Status: REG ER PHONE #: [phone] Exam Date: 08/24/2019 0944 FAX #: [phone] Reason: LLQ abd pain EXAMS: CPT CODE: [id number] CT ABD PELVIS W/CONT 99987 REASON FOR EXAM: LLQ abd pain EXAM ORDER DATE: 08/24/2019 8:43 AM Ordering M.D.: Hoang Kaplan MD PROCEDURE: - CT ABD PELVIS W/CONT contrast-enhanced axial CT images were acquired through the abdomen/pelvis at 5 mm intervals. Sagittal and coronal reformatted images were generated. Automated exposure control was utilized for this reduction. Phases of contrast: venous and delayed COMPARISON: CT of the abdomen and pelvis March 30, 2019 FINDINGS: Visualized thorax: Normal Hepatobiliary system: Decreased hepatic parenchymal attenuation relative to the spleen suggest steatosis. Prior cholecystectomy. Pancreas: Normal Spleen: Normal Adrenal glands: Normal Genitourinary system: Cortical scarring in the superior pole of the right kidney may be sequela from a previous infectious or inflammatory process. Uterus is surgically absent. Remainder of the genitourinary structures are within normal limits. Specifically no stone in the left kidney or ureter. Gastrointestinal tract and appendix: Normal. Specifically no abnormalities of the descending or sigmoid colon. Appendix is within normal limits Abdominal vascular structures: Mild atherosclerotic disease in the right iliac artery. Otherwise normal Peritoneum and retroperitoneum: No free fluid or free air. No omental or mesenteric masses. No abnormal lymph nodes. Musculoskeletal structures and abdominal wall: Mild degenerative PAGE 1 Signed Report (CONTINUED) Name: JEAN-PIERRE FRANKLIN [facility] : 1970 Age/S: 49 / F [address] [facility] Unit #: [id number] Loc: [place] [address] Phys: Hoang Kaplan MD Acct: [id number] Dis Date: Status: REG ER PHONE #: [phone] Exam Date: 08/24/2019943 FAX #: [phone] Reason: LLQ abd pain EXAMS: CPT CODE: [id number] CT ABD PELVIS W/CONT 99915 <Continued> changes are present in the spine. IMPRESSION: No acute intra-abdominal process that would explain the patient's left lower quadrant abdominal pain. Specifically no abnormalities of the descending or sigmoid colon and no stones in the left kidney or ureter. Findings suggest steatosis. at 1024 Reported and signed by: Gelacio Qureshi MD CC: Alexis Mary MD; Hoang Kaplan MD Technologist:CARSON HINOJOSA, RT(R),CT CTDI: DLP: Trnscb Date/Time: 08/24/2019 (1024) [email or web address] Orig Print D/T: S: 08/24/2019 (1027) PAGE 2 Signed Report COMPREHENSIVE METABOLIC [id number] 09:00:00* Test Item Value Reference Range Interpretation Comments SODIUM (test code = NA) 141 mmol/L 136-145 N POTASSIUM (test code = K) 3.6 mmol/L 3.5-5.1 N CHLORIDE (test code = CL) 103 mmol/L 101-109 N CARBON DIOXIDE (test code = CO2) 27.3 mmol/L 21-32 N ANION GAP (test code = GAP) 14 mmol/L 10-20 N GLUCOSE (test code = GLU) 172 mg/dL 74-106 H BLOOD UREA NITROGEN (test code = BUN) 13 mg/dL 3-21 N CREATININE (test code = CREAT) 0.76 mg/dL 0.55-1.3 N BUN/CREATININE RATIO (test code = BUN/CREA) 17.1 10-20 N TOTAL PROTEIN (test code = PROT) gram/dL 6.4-8.2 ALBUMIN (test code = ALB) g/dL 3.4-5.0 GLOBULIN (test code = GLOB) g/dL 2.7-4.2 ALBUMIN/GLOBULIN RATIO (test code = A/G) 0.75-1.50 CALCIUM (test code = CA) 8.9 mg/dL 8.4-10.2 N BILIRUBIN TOTAL (test code = BILT) mg/dL 0.2-1.2 SGOT/AST (test code = AST) IUnit/L 15-37 SGPT/ALT (test code = ALT) U/L 10-69 ALKALINE PHOSPHATASE TOTAL (test code = ALKP) IUnit/L 45-117 [id number] 09:00:00* Test Item Value Reference Range Interpretation Comments LIPASE (test code = LIP) Unit/L 144-286 COMPREHENSIVE METABOLIC [id number] 09:00:00* Test Item Value Reference Range Interpretation Comments SODIUM (test code = NA) 141 mmol/L 136-145 N POTASSIUM (test code = K) 3.6 mmol/L 3.5-5.1 N CHLORIDE (test code = CL) 103 mmol/L 101-109 N CARBON DIOXIDE (test code = CO2) 27.3 mmol/L 21-32 N ANION GAP (test code = GAP) 14 mmol/L 10-20 N GLUCOSE (test code = GLU) 172 mg/dL 74-106 H BLOOD UREA NITROGEN (test code = BUN) 13 mg/dL 3-21 N CREATININE (test code = CREAT) 0.76 mg/dL 0.55-1.3 N BUN/CREATININE RATIO (test code = BUN/CREA) 17.1 10-20 N TOTAL PROTEIN (test code = PROT) 7.7 g/dL 6.5-8.4 N ALBUMIN (test code = ALB) 4.1 g/dL 3.4-4.8 N GLOBULIN (test code = GLOB) 3.6 G/DL 1-10 N ALBUMIN/GLOBULIN RATIO (test code = A/G) 1.14 RATIO 0.75-1.50 N CALCIUM (test code = CA) 8.9 mg/dL 8.4-10.2 N BILIRUBIN TOTAL (test code = BILT) 1.30 mg/dL 0.0-1.0 H SGOT/AST (test code = AST) 15 U/L 6-32 N SGPT/ALT (test code = ALT) 17 U/L 12-78 N N ote: Change in REFERENCE RANGE due to new reagent method. ALKALINE PHOSPHATASE TOTAL (test code = ALKP) 80 U/L 38-126 N [id number] 09:00:00* Test Item Value Reference Range Interpretation Comments LIPASE (test code = LIP) 188 U/L 128-270 N URINALYSIS [id number] 08:52:00* Test Item Value Reference Range Interpretation Comments UA COLOR (test code = COLU) YELLOW YELLOW UA APPEARANCE (test code = APPU) CLEAR CLEAR UA GLUCOSE DIPSTICK (test code = DGLUU) norm mg/dL NEGATIVE UA BILIRUBIN DIPSTICK (test code = BILU) NEGATIVE mg/dL NEGATIVE UA KETONE DIPSTICK (test code = KETU) 50 (2+) mg/dL NEGATIVE A UA SPECIFIC GRAVITY (test code = SGU) 1.020 1.001-1.035 UA BLOOD DIPSTICK (test code = JADE) neg Levon/uL NEGATIVE UA PH DIPSTICK (test code = NETTA) 5.0 5.0-8.0 UA PROTEIN DIPSTICK (test code = PROU) neg mg/dL Neg-15 UA UROBILINIOGEN DIPSTICK (test code = URO) norm mg/dL 0.0-0.2 UA NITRITE DIPSTICK (test code = THUAN) NEGATIVE NEGATIVE UA LEUKOCYTE ESTERASE DIPSTICK (test code = LEUU) neg uL NEGA TIVE UA WBC (test code = WBCU) 0-1 per HPF 0-5 UA RBC (test code = RBCU) NONE SEEN per HPF 0-5 UA EPITHELIAL CELLS (test code = EPIU) Few (2-5/hpf) per HPF Few UA BACTERIA (test code = BACU) FEW per HPF NONE Urine Source? Clean CatchUR HCG [id number] 08:52:00* Test Item Value Reference Range Interpretation Comments UR HCG QUAL (test code = HCGQLU) NEGATIVE This HCGQL test is NOT applicable for MALE patients.Check with nurse about probable order error.If Tumor Marker Test needed, nurse should order test "HCGTU"(Test #550.21439) Urine Source? Clean CatchCBC W/AUTO [id number] 08:47:00* Test Item Value Reference Range Interpretation Comments WHITE BLOOD CELL (test code = WBC) 11.2 K/mm3 4.5-12.5 N RED BLOOD CELL (test code = RBC) 4.71 mill/mm3 3.7-5.2 N HEMOGLOBIN (test code = HGB) 14.6 gram/dL 11.5-15.5 N HEMATOCRIT (test code = HCT) 43.3 % 36.0-46.0 N MEAN CELL VOLUME (test code = MCV) 91.9 fL 80-98 N MEAN CELL HGB (test code = MCH) 31.0 picogram 27.0-33.0 N MEAN CELL HGB CONCETRATION (test code = MCHC) 33.7 gram/dL 33.0-36. 0 N RED CELL DISTRIBUTION WIDTH (test code = RDW) 12.4 % 11.6-16. 2 N RED CELL DISTRIBUTION WIDTH SD (test code = RDW-SD) 42.8 fL 37 .0-51.0 N PLATELET COUNT (test code = PLT) 345 K/mm3 150-450 N MEAN PLATELET VOLUME (test code = MPV) 10.6 fL 6.7-11.0 N NEUTROPHIL % (test code = NT%) 67.7 % 39.0-69.0 N LYMPHOCYTE % (test code = LY%) 22.5 % 25.0-55.0 L MONOCYTE % (test code = MO%) 7.0 % 0.0-10.0 N EOSINOPHIL % (test code = EO%) 2.1 % 0.0-5.0 N BASOPHIL % (test code = BA%) 0.5 % 0.0-1.0 N NEUTROPHIL # (test code = NT#) 7.57 K/mm3 1.8-7.7 N LYMPHOCYTE # (test code = LY#) 2.51 K/mm3 1.0-5.0 N MONOCYTE # (test code = MO#) 0.78 K/mm3 0-0.8 N EOSINOPHIL # (test code = EO#) 0.23 K/mm3 0.0-0.5 N BASOPHIL # (test code = BA#) 0.06 K/mm3 0.0-0.2 N MANUAL DIFF REQUIRED (test code = MDIFF) NO CT ABDOMEN/PELVIS [id number] 08:13:00 [place] [address] Patient Name: JEAN-PIERRE FRANKLIN MR #: [id number] : 1970 Age/Sex: 48/F Req #: [id number] Adm Physician: Ordered by: MARIAH HASTINGS MD Report #: [id number] Location: ER Room/Bed: Procedure: CT/CT ABDOMEN/PELVIS W Exam Date: 04/05/19 E xam Time: 0750 REPORT STATUS: Renate d EXAMINATION: CT of the abdomen and pelvis with contrast. TECHNIQUE: Spiral CT images of the abdomen and pelvis were performed from the lung bases to the lesser trochanters after the intravenous administration of 100 cc Isov ue-370. Coronal and sagittal reformatted images were obtained. COMPARISON: CT abdomen and pelvis without contrast 05/31/2018 CLINICAL HISTORY:Left lowe r quadrant pain, diarrhea DISCUSSION: ABDOMEN/PELVIS: LOWER THORAX:Unremarkable. HEPATOBILIARY: No focal hepatic lesions. No intra-or extrahepatic biliary ductal dilation. The gallbladder has been removed. SPLEEN: No splenomegaly. PANCREAS: No focal masses or ductal dilatation. ADRENALS: No adrenal nodules. KIDNEYS/URETERS: Lobulated contour of the kidneys, right greater than left, likely congenital. No hydronephrosis, calc suyapa, or gross mass lesion. PELVIC ORGANS/BLADDER: Urinary bladder is unrema rkable. Uterus is not identified and has presumably been removed. No adnexal m ass. PERITONEUM/RETROPERITONEUM: No ascites. No pneumoperitoneum. LYMP H NODES: No pelvic sidewall, retroperitoneal, or mesenteric lymphadenopathy. VESSELS: Abdominal aorta, major branch vessels, and iliac arterial systems a re patent with minimal calcified atherosclerotic plaque. Portal vein, splenic vein, and central superior mesenteric vein are patent. GI TRACT: The large bowel shows no distention or wall thickening. Gas and fecal material are noted throughout. The appendix is normal. No small bowel dilatation to suggest ob struction. The stomach is collapsed with prominent rugal folds. BONES AND SOFT TISSUE: No osseous destructive lesions. Bilateral facet arthropathy at L 5-S1. Hemangioma T9 vertebral body. No soft tissue abnormalities. IMPR ESSION: No acute intra-abdominal or pelvic CT abnormalities. Signed b y: Dr. Hailey Sherwood M.D. on 04/05/2019 8:30 AM Dictated By: HAILEY Oliveira MD 9 Transcribed B y: REAGAN on 04/05/19829 COPY TO: MARIAH HASTINGS MD Sodium [id number] 07:16:00* Test Item Value Reference Range Interpretation Comments Sodium Level (test code = 2951-2) 136 136-145 [facility] [id number] 07:16:00* Test Item Value Reference Range Interpretation Comments Potassium Level (test code = 2823-3) 4.0 3.5-5.1 [facility] HospitalChloride [id number] 07:16:00* Test Item Value Reference Range Interpretation Comments Chloride Level (test code = 2075-0) 104 98-107 [facility] HospitalCarbon Dioxide [id number] 07:16:00* Test Item Value Reference Range Interpretation Comments Carbon Dioxide Level (test code = 2028-9) 25 - [facility] HospitalAnion [id number] 07:16:00* Test Item Value Reference Range Interpretation Comments Anion Gap (test code = 74345-4) 11.0 8-16 [facility] HospitalBlood Urea [id number] 07:16:00* Test Item Value Reference Range Interpretation Comments Blood Urea Nitrogen (test code = 3094-0) 17 7- [facility] HospitalCreatinine2019-05-16 07:16:00* Test Item Value Reference Range Interpretation Comments Creatinine (test code = 2160-0) 0.78 0.57-1.11 [facility] HospitalBUN/Creatinine [id number] 07:16:00* Test Item Value Reference Range Interpretation Comments BUN/Creatinine Ratio (test code = 3097-3) 22 6- [facility] HospitalEstimat Glomerular Filtration Rate 2019-04-05 07:16:00* Test Item Value Reference Range Interpretation Comments Estimat Glomerular Filtration Rate (test code = 910831677) > 60 >60 Ranges were taken from the National Kidney Disease Education Program and the [facility] literature.Reference ranges:60 or greater: Ewzwww57-53 ( for 3 consecutive months): Chronic kidney disease 15 or less: Kidney failureSt. Luke's Baptist HospitalGlucose [id number] 07:16:00* Test Item Value Reference Range Interpretation Comments Glucose Level (test code = PWK4081) 183 74-[address] [facility] HospitalCalcium [id number] 07:16:00* Test Item Value Reference Range Interpretation Comments Calcium Level (test code = 05973-3) 10.0 8.4-10.2 [facility] HospitalTotal [id number] 07:16:00* Test Item Value Reference Range Interpretation Comments Total Bilirubin (test code = 1975-2) 0.7 0.2-1.2 [facility] HospitalAspartate Amino Transf (AST/SGOT) 2019-04-05 07:16:00* Test Item Value Reference Range Interpretation Comments Aspartate Amino Transf (AST/SGOT) (test code = Aspartate Amino Transf (AST/SGOT)) 20 5-34 [facility] HospitalAlanine Aminotransferase (ALT/SGPT) 2019-04-05 07:16:00* Test Item Value Reference Range Interpretation Comments Alanine Aminotransferase (ALT/SGPT) (test code = 1742-6) 26 0-55 [facility] HospitalTotal [id number] 07:16:00* Test Item Value Reference Range Interpretation Comments Total Protein (test code = 2885-2) 7.4 6.5-8.1 [facility] HospitalAlbumin2019-05-16 07:16:00* Test Item Value Reference Range Interpretation Comments Albumin (test code = 1751-7) 4.0 3.5-5.0 [facility] HospitalGlobulin2019-05-16 07:16:00* Test Item Value Reference Range Interpretation Comments Globulin (test code = 41938-0) 3.4 2.3-3.5 [facility] HospitalAlbumin/Globulin [id number] 07:16:00 * Test Item Value Reference Range Interpretation Comments Albumin/Globulin Ratio (test code = 1759-0) 1.2 0.8-2.0 [facility] HospitalAlkaline [id number] 07:16:00* Test Item Value Reference Range Interpretation Comments Alkaline Phosphatase (test code = 6768-6) 73 40-150 [facility]Am[facility] [id number] 07:16:00* Test Item Value Reference Range Interpretation Comments Amylase Level (test code = 1798-8) 61 25-125 [facility]Lipase2019-05-16 07:16:00* Test Item Value Reference Range Interpretation Comments Lipase (test code = 3040-3) 50 8-78 [facility]Am[facility] Wrkor1814-10-51 07:16:00* Test Item Value Reference Range Interpretation Comments Amylase Level (test code = 1798-8) 61 25-125 [facility] [id number] 07:12:00* Test Item Value Reference Range Interpretation Comments Urine WBC (test code = 5821-4) NONE 0-5 [facility] [id number] 07:12:00* Test Item Value Reference Range Interpretation Comments Urine RBC (test code = 34625-8) NONE 0-5 [facility] [id number] 07:12:00* Test Item Value Reference Range Interpretation Comments Urine Bacteria (test code = 61697-4) FEW NONE [facility] Epithelial [id number] 07:12:00 * Test Item Value Reference Range Interpretation Comments Urine Epithelial Cells (test code = 52878-2) MANY NONE [facility] HospitalWhite Blood [id number] 06:55:00* Test Item Value Reference Range Interpretation Comments White Blood Count (test code = 6690-2) 9.58 4.8-10.8 [facility] Hospital[facility] Blood Qrnna2217-35-42 06:55:00* Test Item Value Reference Range Interpretation Comments Red Blood Count (test code = 789-8) 4.52 3.6-5.1 [facility]Hemoglobin2019-[facility] 06:55:00* Test Item Value Reference Range Interpretation Comments Hemoglobin (test code = 72736-8) 14.2 12.0-16.0 Previous labs May 2018. 0655 on 04/05/[address] [facility]ematocrit2019-05-16 06:55:00* Test Item Value Reference Range Interpretation Comments Hematocrit (test code = 4544-3) 41.0 34.2-44.1 [facility] HospitalMean Corpuscular Gebjwy6964-20-53 06:55:00* Test Item Value Reference Range Interpretation Comments Mean Corpuscular Volume (test code = 787-2) 90.7 81-99 [facility]Mean Corpuscular Ngegagdzbf4827-23-43 06:55:00* Test Item Value Reference Range Interpretation Comments Mean Corpuscular Hemoglobin (test code = 785-6) 31.4 28-32 [facility] HospitalMean Corpuscular Hemoglobin Concent 2019-04-05 06:55:00* Test Item Value Reference Range Interpretation Comments Mean Corpuscular Hemoglobin Concent (test code = 786-4) 34.6 31-35 [facility] HospitalRed Cell Distribution Vzcul9818-82-17 06:55:00* Test Item Value Reference Range Interpretation Comments Red Cell Distribution Width (test code = 59495-6) 12.7 11.7 -14.4 [facility] HospitalPlatelet Wugls8813-41-62 06:55:00* Test Item Value Reference Range Interpretation Comments Platelet Count (test code = 777-3) 349 140-360 [facility] HospitalNeutrophils (%) (Auto)2019-04-05 06:55:00 * Test Item Value Reference Range Interpretation Comments Neutrophils (%) (Auto) (test code = 12627-0) 58.2 38.7-80.0 [facility] HospitalLymphocytes (%) (Auto)2019-04-05 06:55:00 * Test Item Value Reference Range Interpretation Comments Lymphocytes (%) (Auto) (test code = 736-9) 31.4 18.0-39.1 [facility] HospitalMonocytes (%) (Auto)2019-04-05 06:55:00* Test Item Value Reference Range Interpretation Comments Monocytes (%) (Auto) (test code = 5905-5) 6.5 4.4-11.3 [facility] HospitalEosinophils (%) (Auto)2019-04-05 06:55:00 * Test Item Value Reference Range Interpretation Comments Eosinophils (%) (Auto) (test code = 713-8) 2.9 0.0-6.0 [facility] HospitalBasophils (%) (Auto)2019-04-05 06:55:00* Test Item Value Reference Range Interpretation Comments Basophils (%) (Auto) (test code = 706-2) 0.5 0.0-1.0 [facility] HospitalIM GRANULOCYTES %2019-04-05 06:55:00* Test Item Value Reference Range Interpretation Comments IM GRANULOCYTES % (test code = IM GRANULOCYTES %) 0.5 0.0- 1.0 [facility] HospitalNeutrophils # (Auto)2019-04-05 06:55:00* Test Item Value Reference Range Interpretation Comments Neutrophils # (Auto) (test code = 751-8) 5.6 2.1-6.9 [facility] HospitalLymphocytes # (Auto)2019-04-05 06:55:00* Test Item Value Reference Range Interpretation Comments Lymphocytes # (Auto) (test code = 31270-7) 3.0 1.0-3.2 [facility] HospitalMonocytes # (Auto)2019-04-05 06:55:00* Test Item Value Reference Range Interpretation Comments Monocytes # (Auto) (test code = 742-7) 0.6 0.2-0.8 [facility] HospitalEosinophils # (Auto)2019-04-05 06:55:00* Test Item Value Reference Range Interpretation Comments Eosinophils # (Auto) (test code = 711-2) 0.3 0.0-0.4 [facility] HospitalBasophils # (Auto)2019-04-05 06:55:00* Test Item Value Reference Range Interpretation Comments Basophils # (Auto) (test code = 704-7) 0.1 0.0-0.1 [facility] HospitalAbsolute Immature Granulocyte (auto 2019-04-05 06:55:00* Test Item Value Reference Range Interpretation Comments Absolute Immature Granulocyte (auto (whitney t code = Absolute Immature Granulocyte (auto) 0.05 0-0.1 [facility] HospitalUrine Yzsxk4292-76-37 06:52:00* Test Item Value Reference Range Interpretation Comments Urine Color (test code = 5778-6) DILEEP YELLOW H [facility] HospitalUrine Tplfbiw7363-28-49 06:52:00* Test Item Value Reference Range Interpretation Comments Urine Clarity (test code = 30682-5) SL CLOUDY CLEAR [facility] HospitalUrine Specific Nykvrci6446-35-74 06:52:00 * Test Item Value Reference Range Interpretation Comments Urine Specific [place] (test code = 5811-5) 1.030 1.010-1.[address] [facility] HospitalUrine gZ0961-28-49 06:52:00* Test Item Value Reference Range Interpretation Comments Urine pH (test code = 75676-1) 5 5-7 [facility] HospitalUrine Leukocyte Mkmpojmu9928-53-55 06:52:00* Test Item Value Reference Range Interpretation Comments Urine Leukocyte Esterase (test code = 5799-2) NEGATIVE NEGATIVE [facility] HospitalUrine Aofrcdt0663-79-41 06:52:00* Test Item Value Reference Range Interpretation Comments Urine Nitrite (test code = 80243-6) NEGATIVE NEGATIVE [facility] HospitalUrine Ggeyrii1602-35-49 06:52:00* Test Item Value Reference Range Interpretation Comments Urine Protein (test code = 5804-0) TRACE NEGATIVE H [facility] Glucose (UA)2019-04-05 06:52:00* Test Item Value Reference Range Interpretation Comments Urine Glucose (UA) (test code = 2349-9) 1+ NEGATIVE H [facility] HospitalUrine Dtjnvgx1478-04-97 06:52:00* Test Item Value Reference Range Interpretation Comments Urine Ketones (test code = 78772-8) 1+ NEGATIVE H [facility] Ueuutaubesct6311-63-26 06:52:00* Test Item Value Reference Range Interpretation Comments Urine Urobilinogen (test code = 11532-9) 0.2 0.2-1 [facility] HospitalUrine Zleokdmpp4964-72-60 06:52:00* Test Item Value Reference Range Interpretation Comments Urine Bilirubin (test code = 1978-6) NEGATIVE NEGATIVE [facility] HospitalUrine Nwblx7692-42-66 06:52:00* Test Item Value Reference Range Interpretation Comments Urine Blood (test code = 78877-5) NEGATIVE NEGATIVE [facility] HospitalGLUBED2019-05-11 07:16:00* Test Item Value Reference Range Interpretation Comments GLUBED (test code = GLUBED) 197 mg/dL 74-106 H Performed by certified asphalt roller operator at [facility]3] - CT ABD PELVIS W/HBGC9963-58-87 15:14:00 Name: JEAN-PIERRE FRANKLIN [facility] : 1970 Age/S: 48 / F [address] [facility] Unit #: [id number] Loc: [place] [address] Phys: Keesha Zee MD Acct: [id number] Dis Date: Status: REG ER PHONE #: [phone] Exam Date: 03/30/2019 1500 FAX #: [phone] Reason: ABDOMINAL PAIN AND VOMITING EXAMS: CPT CODE: [id number] CT ABD PELVIS W/CONT 21713 HISTORY: ABDOMINAL PAIN AND VOMITING TECHNIQUE: Immediate and delayed [address] images were obtained through the abdomen and pelvis after IV administration of 100 mL of Isovue-370 contrast. Sagittal and coronal reformatted images were generated. Automated exposure control for dose reduction. COMPARISON: 06/11/18 FINDINGS: Lung bases are clear. Normal heart size. Cholecystectomy. Hepatic steatosis. Pancreas, spleen, adrenal glands, and left kidney are unremarkable. Mild right renal scarring. Limited evaluation the GI tract without oral contrast. Stomach, small bowel, appendix, and colon unremarkable. No free air or free fluid. No lymphadenopathy. No abdominal aortic aneurysm. Urinary bladder is unremarkable. Hysterectomy. Pelvic phleboliths. No pelvic free fluid. Mild lumbar spondylosis and dextroscoliosis. IMPRESSION: No acute findings in the abdomen or pelvis. No significant interval change. at 1514 Reported and signed by: Keesha Boston D.O. CC: Keesha Zee MD; Alexis Mary MD Technologist:Dorothy Hicks RT(R)(CT) CTDI: DLP: Trnscb Date/Time: 03/30/2019 (1513) AedlinaLDP1 Orig Print D/T: S: 03/30/2019 (5973) PAGE 1 Signed Report COMPREHENSIVE METABOLIC PANEL 2019-03-30 14:38:00* Test Item Value Reference Range Interpretation Comments SODIUM (test code = NA) 138 mmol/L 136-145 N POTASSIUM (test code = K) 3.7 mmol/L 3.5-5.1 N CHLORIDE (test code = CL) 104 mmol/L 101-109 N CARBON DIOXIDE (test code = CO2) 24.6 mmol/L 21-32 N ANION GAP (test code = GAP) 13 mmol/L 10-20 N GLUCOSE (test code = GLU) 327 mg/dL 74-106 H BLOOD UREA NITROGEN (test code = BUN) 21 mg/dL 3-21 N CREATININE (test code = CREAT) 0.75 mg/dL 0.55-1.3 N BUN/CREATININE RATIO (test code = BUN/CREA) 28.0 10-20 H TOTAL PROTEIN (test code = PROT) 7.0 g/dL 6.5-8.4 N ALBUMIN (test code = ALB) 3.5 g/dL 3.4-4.8 N GLOBULIN (test code = GLOB) 3.5 G/DL 1-10 N ALBUMIN/GLOBULIN RATIO (test code = A/G) 1.00 RATIO 0.75-1.50 N CALCIUM (test code = CA) 8.1 mg/dL 8.4-10.2 L BILIRUBIN TOTAL (test code = BILT) 0.50 mg/dL 0.0-1.0 N SGOT/AST (test code = AST) 11 U/L 6-32 N SGPT/ALT (test code = ALT) 37 U/L 12-78 N N ote: Change in REFERENCE RANGE due to new reagent method. ALKALINE PHOSPHATASE TOTAL (test code = ALKP) 96 U/L 38-126 N CBC W/AUTO [id number] 14:19:00* Test Item Value Reference Range Interpretation Comments WHITE BLOOD CELL (test code = WBC) 10.1 K/mm3 4.5-12.5 N RED BLOOD CELL (test code = RBC) 4.42 mill/mm3 3.7-5.2 N HEMOGLOBIN (test code = HGB) 13.6 gram/dL 11.5-15.5 N HEMATOCRIT (test code = HCT) 40.1 % 36.0-46.0 N MEAN CELL VOLUME (test code = MCV) 90.7 fL 80-98 N MEAN CELL HGB (test code = MCH) 30.8 picogram 27.0-33.0 N MEAN CELL HGB CONCETRATION (test code = MCHC) 33.9 gram/dL 33.0-36. 0 N RED CELL DISTRIBUTION WIDTH (test code = RDW) 12.3 % 11.6-16. 2 N RED CELL DISTRIBUTION WIDTH SD (test code = RDW-SD) 41.1 fL 37 .0-51.0 N PLATELET COUNT (test code = PLT) 365 K/mm3 150-450 N MEAN PLATELET VOLUME (test code = MPV) 10.5 fL 6.7-11.0 N NEUTROPHIL % (test code = NT%) 60.8 % 39.0-69.0 N LYMPHOCYTE % (test code = LY%) 29.3 % 25.0-55.0 N MONOCYTE % (test code = MO%) 5.8 % 0.0-10.0 N EOSINOPHIL % (test code = EO%) 3.2 % 0.0-5.0 N BASOPHIL % (test code = BA%) 0.5 % 0.0-1.0 N NEUTROPHIL # (test code = NT#) 6.13 K/mm3 1.8-7.7 N LYMPHOCYTE # (test code = LY#) 2.96 K/mm3 1.0-5.0 N MONOCYTE # (test code = MO#) 0.59 K/mm3 0-0.8 N EOSINOPHIL # (test code = EO#) 0.32 K/mm3 0.0-0.5 N BASOPHIL # (test code = BA#) 0.05 K/mm3 0.0-0.2 N MANUAL DIFF REQUIRED (test code = MDIFF) NO URINALYSIS OITFAXOK9248-77-11 13:55:00* Test Item Value Reference Range Interpretation Comments UA COLOR (test code = COLU) YELLOW YELLOW UA APPEARANCE (test code = APPU) CLEAR CLEAR UA GLUCOSE DIPSTICK (test code = DGLUU) 1000 (3+) mg/dL NEGATIVE A UA BILIRUBIN DIPSTICK (test code = BILU) NEGATIVE mg/dL NEGATIVE UA KETONE DIPSTICK (test code = KETU) 5 (Trace) mg/dL NEGATIVE A UA SPECIFIC GRAVITY (test code = SGU) 1.020 1.001-1.035 UA BLOOD DIPSTICK (test code = JADE) neg Levon/uL NEGATIVE UA PH DIPSTICK (test code = NETTA) 5.0 5.0-8.0 UA PROTEIN DIPSTICK (test code = PROU) 15 (TRACE) mg/dL Neg-15 A UA UROBILINIOGEN DIPSTICK (test code = URO) 1 mg/dL 0.0-0.2 A UA NITRITE DIPSTICK (test code = THUAN) NEGATIVE NEGATIVE UA LEUKOCYTE ESTERASE DIPSTICK (test code = LEUU) neg uL NEGA TIVE UA WBC (test code = WBCU) 3-5 per HPF 0-5 UA RBC (test code = RBCU) 0-3 per HPF 0-5 UA EPITHELIAL CELLS (test code = EPIU) MANY per HPF Few UA BACTERIA (test code = BACU) FEW per HPF NONE Urine Source? Clean CatchUR HCG [id number] 13:55:00* Test Item Value Reference Range Interpretation Comments UR HCG QUAL (test code = HCGQLU) NEGATIVE This HCGQL test is NOT applicable for MALE patients.Check with nurse about probable order error.If Tumor Marker Test needed, nurse should order test "HCGTU"(Test #550.86384) Urine Source? Clean CatchURINALYSIS [id number] 13:48:00* Test Item Value Reference Range Interpretation Comments UA COLOR (test code = COLU) YELLOW YELLOW UA APPEARANCE (test code = APPU) CLEAR CLEAR UA GLUCOSE DIPSTICK (test code = DGLUU) 1000 (3+) mg/dL NEGATIVE A UA BILIRUBIN DIPSTICK (test code = BILU) NEGATIVE mg/dL NEGATIVE UA KETONE DIPSTICK (test code = KETU) 5 (Trace) mg/dL NEGATIVE A UA SPECIFIC GRAVITY (test code = SGU) 1.020 1.001-1.035 UA BLOOD DIPSTICK (test code = JADE) neg Levon/uL NEGATIVE UA PH DIPSTICK (test code = NETTA) 5.0 5.0-8.0 UA PROTEIN DIPSTICK (test code = PROU) 15 (TRACE) mg/dL Neg-15 A UA UROBILINIOGEN DIPSTICK (test code = URO) 1 mg/dL 0.0-0.2 A UA NITRITE DIPSTICK (test code = THUAN) NEGATIVE NEGATIVE UA LEUKOCYTE ESTERASE DIPSTICK (test code = LEUU) neg uL NEGA TIVE UA WBC (test code = WBCU) per HPF 0-5 UA RBC (test code = RBCU) per HPF 0-5 UA EPITHELIAL CELLS (test code = EPIU) per HPF Few UA BACTERIA (test code = BACU) per HPF NONE Urine Source? Clean CatchUR HCG [id number] 13:48:00* Test Item Value Reference Range Interpretation Comments UR HCG QUAL (test code = HCGQLU) NEGATIVE This HCGQL test is NOT applicable for MALE patients.Check with nurse about probable order error.If Tumor Marker Test needed, nurse should order test "HCGTU"(Test #550.33382) Urine Source? Clean CatchURINALYSIS [id number] 13:44:00* Test Item Value Reference Range Interpretation Comments UA COLOR (test code = COLU) YELLOW YELLOW UA APPEARANCE (test code = APPU) CLEAR CLEAR UA GLUCOSE DIPSTICK (test code = DGLUU) 1000 (3+) mg/dL NEGATIVE A UA BILIRUBIN DIPSTICK (test code = BILU) NEGATIVE mg/dL NEGATIVE UA KETONE DIPSTICK (test code = KETU) 5 (Trace) mg/dL NEGATIVE A UA SPECIFIC GRAVITY (test code = SGU) 1.020 1.001-1.035 UA BLOOD DIPSTICK (test code = JADE) neg Levon/uL NEGATIVE UA PH DIPSTICK (test code = NETTA) 5.0 5.0-8.0 UA PROTEIN DIPSTICK (test code = PROU) 15 (TRACE) mg/dL Neg-15 A UA UROBILINIOGEN DIPSTICK (test code = URO) 1 mg/dL 0.0-0.2 A UA NITRITE DIPSTICK (test code = THUAN) NEGATIVE NEGATIVE UA LEUKOCYTE ESTERASE DIPSTICK (test code = LEUU) neg uL NEGA TIVE UA WBC (test code = WBCU) per HPF 0-5 UA RBC (test code = RBCU) per HPF 0-5 UA EPITHELIAL CELLS (test code = EPIU) per HPF Few UA BACTERIA (test code = BACU) per HPF NONE Urine Source? Clean CatchUR HCG [id number] 13:44:00* Test Item Value Reference Range Interpretation Comments UR HCG QUAL (test code = HCGQLU) Urine Source? Clean CatchUrine [id number] 20:00:00* Test Item Value Reference Range Interpretation Comments Urine WBC (test code = 5821-4) NONE 0-5 [facility] [id number] 20:00:00* Test Item Value Reference Range Interpretation Comments Urine RBC (test code = 32431-4) NONE 0-5 [facility] Eddrbnhs0561-62-12 20:00:00* Test Item Value Reference Range Interpretation Comments Urine Bacteria (test code = 45821-0) NONE NONE [facility] Epithelial [id number] 20:00:00 * Test Item Value Reference Range Interpretation Comments Urine Epithelial Cells (test code = 95764-3) MANY NONE [facility] Khzsh3183-87-09 20:00:00* Test Item Value Reference Range Interpretation Comments Urine Mucus (test code = 8247-9) MODERATE RARE H [facility] [id number] 20:00:00* Test Item Value Reference Range Interpretation Comments Urine WBC (test code = 5821-4) NONE 0-5 [facility] [id number] 20:00:00* Test Item Value Reference Range Interpretation Comments Urine RBC (test code = 22330-2) NONE 0-5 [facility] Zagchxqq7782-16-74 20:00:00* Test Item Value Reference Range Interpretation Comments Urine Bacteria (test code = 04466-1) NONE NONE [facility] Epithelial Xeytx7387-80-37 20:00:00 * Test Item Value Reference Range Interpretation Comments Urine Epithelial Cells (test code = 08975-2) MANY NONE [facility] Uwdpa2120-26-57 20:00:00* Test Item Value Reference Range Interpretation Comments Urine Mucus (test code = 8247-9) MODERATE RARE H [facility] Jksxe4630-22-49 19:50:00* Test Item Value Reference Range Interpretation Comments Urine Color (test code = 5778-6) YELLOW YELLOW [facility] Gnrderd8281-75-37 19:50:00* Test Item Value Reference Range Interpretation Comments Urine Clarity (test code = 07624-6) SL CLOUDY CLEAR [facility] Specific Vcoonwb2126-64-13 19:50:00 * Test Item Value Reference Range Interpretation Comments Urine Specific [place] (test code = 5811-5) 1.015 1.010-1.[address] [facility] [id number] 19:50:00* Test Item Value Reference Range Interpretation Comments Urine pH (test code = 42641-0) 8 5-7 H [facility] Leukocyte Vmegctkg7956-27-86 19:50:00* Test Item Value Reference Range Interpretation Comments Urine Leukocyte Esterase (test code = 5799-2) NEGATIVE NEGATIVE [facility] Jshnaky2790-01-85 19:50:00* Test Item Value Reference Range Interpretation Comments Urine Nitrite (test code = 79275-1) NEGATIVE NEGATIVE [facility] Atsblxa9861-29-82 19:50:00* Test Item Value Reference Range Interpretation Comments Urine Protein (test code = 5804-0) NEGATIVE NEGATIVE [facility] Glucose (UA)2018-05-31 19:50:00* Test Item Value Reference Range Interpretation Comments Urine Glucose (UA) (test code = 2349-9) NEGATIVE NEGATIVE [facility] Vidzipm3125-48-38 19:50:00* Test Item Value Reference Range Interpretation Comments Urine Ketones (test code = 25643-9) 1+ NEGATIVE H [facility] Kotcyvjtgzqu9827-70-65 19:50:00* Test Item Value Reference Range Interpretation Comments Urine Urobilinogen (test code = 55569-6) 0.2 0.2-1 [facility] Viwhxafzl9771-35-58 19:50:00* Test Item Value Reference Range Interpretation Comments Urine Bilirubin (test code = 1978-6) NEGATIVE NEGATIVE [facility] Gvwly6389-28-06 19:50:00* Test Item Value Reference Range Interpretation Comments Urine Blood (test code = 57189-6) NEGATIVE NEGATIVE [facility] Ixflh2670-13-75 19:50:00* Test Item Value Reference Range Interpretation Comments Urine Color (test code = 5778-6) YELLOW YELLOW [facility] Thqaykf2373-32-45 19:50:00* Test Item Value Reference Range Interpretation Comments Urine Clarity (test code = 45436-9) SL CLOUDY CLEAR [facility] Specific Ztgsgxd3098-04-53 19:50:00 * Test Item Value Reference Range Interpretation Comments Urine Specific [place] (test code = 5811-5) 1.015 1.010-1.[address] [facility] [id number] 19:50:00* Test Item Value Reference Range Interpretation Comments Urine pH (test code = 53419-7) 8 5-[address] [facility] Leukocyte Borinuys1495-21-56 19:50:00* Test Item Value Reference Range Interpretation Comments Urine Leukocyte Esterase (test code = 5799-2) NEGATIVE NEGATIVE [facility] Txfhruz5671-37-12 19:50:00* Test Item Value Reference Range Interpretation Comments Urine Nitrite (test code = 21516-0) NEGATIVE NEGATIVE [facility] Smipyaj6525-97-36 19:50:00* Test Item Value Reference Range Interpretation Comments Urine Protein (test code = 5804-0) NEGATIVE NEGATIVE [facility] Glucose (UA)2018-05-31 19:50:00* Test Item Value Reference Range Interpretation Comments Urine Glucose (UA) (test code = 2349-9) NEGATIVE NEGATIVE [facility] Gqhupla8284-36-65 19:50:00* Test Item Value Reference Range Interpretation Comments Urine Ketones (test code = 47248-1) 1+ NEGATIVE H [facility] Hxbesmursrms1913-93-65 19:50:00* Test Item Value Reference Range Interpretation Comments Urine Urobilinogen (test code = 44957-6) 0.2 0.2-1 [facility] Freoquily3612-72-13 19:50:00* Test Item Value Reference Range Interpretation Comments Urine Bilirubin (test code = 1978-6) NEGATIVE NEGATIVE [facility] Jbdxx1571-07-16 19:50:00* Test Item Value Reference Range Interpretation Comments Urine Blood (test code = 41687-8) NEGATIVE NEGATIVE [facility]EN/PELVIS [id number] 19:40:00 [facility] [address] [address] Patient Name: JEAN-PIERRE FRANKLIN MR #: [id number] : 0 1970 Age/Sex: 47/F Req #: [id number] Adm Physician: Ordered by: DIANE HUERTA [employer] SCHO[employer] CAREGIVER Report #: [id number] Location: ER Room/B ed: Procedure: [id number] CT/CT ABDOMEN/PELVIS WO Edisa m Date: 05/31/18 Exam Time: 1900 REPORT STATUS: Signed EXAM: CT Abdomen and Pelvis WITHOUT contrast INDICATION: Gavin al stone protocol. Abdominal pain. Intermittent left flank pain. Nausea and vo miting. COMPARISON: CT abdomen and pelvis 05/02/2017. TECHNIQUE: Abdomen and pelvis were scanned utilizing a multidetector helical scanner from the lung b ase to the pubic symphysis without administration of IV contrast. Absence of i ntravenous contrast decreases sensitivity for detection of focal lesions and v ascular pathology. Coronal and sagittal reformations were obtained. Stone prot ocol is performed. IV CONTRAST: None ORAL CONTRAST: Water COMPLICATIONS: None RADIATION DOSE: Total DLP: 516 mGy*cm Estimated effective dose: (DLP x 0.015 x size factor) mSv CTDIvol has been reviewed. It is below the limits set by the Radiation Protocol Committee (RPC). FINDINGS: LINES and TUBES: None. LOWER THORAX: Unremar kable HEPATOBILIARY: No focal hepatic lesions. No biliary ductal dilat ion. GALLBLADDER: There are cholecystectomy clips. SPLEEN: No splen omegaly. PANCREAS: No focal masses or ductal dilatation. ADRENALS: No adrenal nodules KIDNEYS/URETERS: Right renal scarring. No hydronephr osis. No cystic or solid mass lesions. No stones. GI TRACT: No abnormal distention, wall thickening, or evidence of bowel obstruction. Appendix is normal. PELVIC ORGANS/BLADDER: The uterus is absent. Bilateral ovaries a re unremarkable. LYMPH NODES: No lymphadenopathy. VESSELS: Unremarka ble. PERITONEUM / RETROPERITONEUM: No free air or fluid. BONES: Unrema rkable. SOFT TISSUES: Unremarkable. IMPRESSION: Unremar kable abdomen and pelvis. No renal stones. Signed by: Dr. Eric Vazquez M.D. on 05/31/2018 7:45 PM Dictated By: ERIC VAZQUEZ MD 44 Transcribed By: REAGAN on 05/31/181944 COPY TO: DIANE HUERTA [employer] C[employer]GIVER Amylase Ckdkl3481-18-53 19:34:00* Test Item Value Reference Range Interpretation Comments Amylase Level (test code = 1798-8) 63 25-125 [facility]ase2018-07-11 19:34:00* Test Item Value Reference Range Interpretation Comments Lipase (test code = 3040-3) 54 8-78 [facility] HospitalAm[facility] Kxomq2818-99-46 19:34:00* Test Item Value Reference Range Interpretation Comments Amylase Level (test code = 1798-8) 63 25-125 [facility] HospitalLipase2018-07-11 19:34:00* Test Item Value Reference Range Interpretation Comments Lipase (test code = 3040-3) 54 8-78 [facility] Hwmom1585-06-42 19:33:00* Test Item Value Reference Range Interpretation Comments Sodium Level (test code = 2951-2) 138 136-145 [facility] HospitalPotassium Sxxiv7464-03-96 19:33:00* Test Item Value Reference Range Interpretation Comments Potassium Level (test code = 2823-3) 3.6 3.5-5.1 [facility] HospitalChloride Esyoy3477-44-69 19:33:00* Test Item Value Reference Range Interpretation Comments Chloride Level (test code = 2075-0) 104 98-107 [facility] HospitalCarbon Dioxide Ggnmw0461-97-99 19:33:00* Test Item Value Reference Range Interpretation Comments Carbon Dioxide Level (test code = 2028-9) 20 22-[address] [facility] HospitalAnion Fyh2500-70-23 19:33:00* Test Item Value Reference Range Interpretation Comments Anion Gap (test code = 49733-7) 17.6 8-[address] [facility] HospitalBlood Urea Ipxozbop3830-80-49 19:33:00* Test Item Value Reference Range Interpretation Comments Blood Urea Nitrogen (test code = 3094-0) 13 7-26 [facility] HospitalCreatinine2018-07-11 19:33:00* Test Item Value Reference Range Interpretation Comments Creatinine (test code = 2160-0) 0.76 0.57-1.11 [facility] HospitalBUN/Creatinine Bifvt3186-84-44 19:33:00* Test Item Value Reference Range Interpretation Comments BUN/Creatinine Ratio (test code = 3097-3) 17 6-25 [facility] HospitalEstimat Glomerular Filtration Rate 2018-05-31 19:33:00* Test Item Value Reference Range Interpretation Comments Estimat Glomerular Filtration Rate (test code = 55242-5) 60- >60 Ranges were taken from the National Kidney Disease Education Program and the [facility] literature.Reference ranges:60 or greater: [id number] ( for 3 consecutive months): Chronic kidney disease 15 or less: Kidney failureSt. Luke's Baptist HospitalGlucose Aixhq6273-92-01 19:33:00* Test Item Value Reference Range Interpretation Comments Glucose Level (test code = FRZ5495) 97 74-118 [facility] HospitalCalcium Ituie7738-92-74 19:33:00* Test Item Value Reference Range Interpretation Comments Calcium Level (test code = 16235-2) 10.2 8.4-10.2 [facility] HospitalTotal Jcivoajsd5164-22-89 19:33:00* Test Item Value Reference Range Interpretation Comments Total Bilirubin (test code = 1975-2) 1.0 0.2-1.2 [facility] HospitalAspartate Amino Transf (AST/SGOT) 2018-05-31 19:33:00* Test Item Value Reference Range Interpretation Comments Aspartate Amino Transf (AST/SGOT) (test code = Aspartate Amino Transf (AST/SGOT)) 13 5-34 [facility] HospitalAlanine Aminotransferase (ALT/SGPT) 2018-05-31 19:33:00* Test Item Value Reference Range Interpretation Comments Alanine Aminotransferase (ALT/SGPT) (test code = 1742-6) 15 0-55 [facility] HospitalTotal Rhnreqr4420-34-39 19:33:00* Test Item Value Reference Range Interpretation Comments Total Protein (test code = 2885-2) 8.2 6.5-8.[address] [facility] HospitalAlbumin2018-07-11 19:33:00* Test Item Value Reference Range Interpretation Comments Albumin (test code = 1751-7) 4.4 3.5-5.0 [facility] HospitalGlobulin2018-07-11 19:33:00* Test Item Value Reference Range Interpretation Comments Globulin (test code = 44872-0) 3.8 2.3-3.[address] [facility] HospitalAlbumin/Globulin Typxt2727-71-18 19:33:00 * Test Item Value Reference Range Interpretation Comments Albumin/Globulin Ratio (test code = 1759-0) 1.2 0.8-2.0 [facility] HospitalAlkaline Jgzahqvuubl5480-46-23 19:33:00* Test Item Value Reference Range Interpretation Comments Alkaline Phosphatase (test code = 6768-6) 67 40-150 [facility] Zwimb9230-99-68 19:33:00* Test Item Value Reference Range Interpretation Comments Sodium Level (test code = 2951-2) 138 136-145 [facility] HospitalPotassium Coxtr4241-94-33 19:33:00* Test Item Value Reference Range Interpretation Comments Potassium Level (test code = 2823-3) 3.6 3.5-5.1 [facility] HospitalChloride Ylkvm0274-17-24 19:33:00* Test Item Value Reference Range Interpretation Comments Chloride Level (test code = 2075-0) 104 98-107 [facility] HospitalCarbon Dioxide Owoyg9388-32-12 19:33:00* Test Item Value Reference Range Interpretation Comments Carbon Dioxide Level (test code = 2028-9) 20 22-[address] [facility] HospitalAnion Lwo9969-47-10 19:33:00* Test Item Value Reference Range Interpretation Comments Anion Gap (test code = 09158-9) 17.6 8-[address] [facility] HospitalBlood Urea Udptxrqd0883-87-65 19:33:00* Test Item Value Reference Range Interpretation Comments Blood Urea Nitrogen (test code = 3094-0) 13 7-26 [facility] HospitalCreatinine2018-07-11 19:33:00* Test Item Value Reference Range Interpretation Comments Creatinine (test code = 2160-0) 0.76 0.57-1.11 [facility] HospitalBUN/Creatinine Xawpn1552-19-08 19:33:00* Test Item Value Reference Range Interpretation Comments BUN/Creatinine Ratio (test code = 3097-3) 17 6-25 [facility] HospitalEstimat Glomerular Filtration Rate 2018-05-31 19:33:00* Test Item Value Reference Range Interpretation Comments Estimat Glomerular Filtration Rate (test code = 404161789) > 60 >60 Ranges were taken from the National Kidney Disease Education Program and the [facility] literature.Reference ranges:60 or greater: [id number] ( for 3 consecutive months): Chronic kidney disease 15 or less: Kidney failureSt. Luke's Baptist HospitalGlucose Vvqdh9928-21-57 19:33:00* Test Item Value Reference Range Interpretation Comments Glucose Level (test code = ZTA8689) 97 74-118 [facility] HospitalCalcium Liafo5885-99-61 19:33:00* Test Item Value Reference Range Interpretation Comments Calcium Level (test code = 36627-8) 10.2 8.4-10.2 [facility] HospitalTotal Eufwryzfn3215-33-79 19:33:00* Test Item Value Reference Range Interpretation Comments Total Bilirubin (test code = 1975-2) 1.0 0.2-1.2 [facility] HospitalAspartate Amino Transf (AST/SGOT) 2018-05-31 19:33:00* Test Item Value Reference Range Interpretation Comments Aspartate Amino Transf (AST/SGOT) (test code = Aspartate Amino Transf (AST/SGOT)) 13 5-34 [facility] HospitalAlanine Aminotransferase (ALT/SGPT) 2018-05-31 19:33:00* Test Item Value Reference Range Interpretation Comments Alanine Aminotransferase (ALT/SGPT) (test code = 1742-6) 15 0-55 [facility] HospitalTotal Ggnveig3541-97-84 19:33:00* Test Item Value Reference Range Interpretation Comments Total Protein (test code = 2885-2) 8.2 6.5-8.[address] [facility] HospitalAlbumin2018-07-11 19:33:00* Test Item Value Reference Range Interpretation Comments Albumin (test code = 1751-7) 4.4 3.5-5.0 [facility] HospitalGlobulin2018-07-11 19:33:00* Test Item Value Reference Range Interpretation Comments Globulin (test code = 71231-2) 3.8 2.3-3.[address] [facility] HospitalAlbumin/Globulin Sbvbw4395-21-56 19:33:00 * Test Item Value Reference Range Interpretation Comments Albumin/Globulin Ratio (test code = 1759-0) 1.2 0.8-2.0 [facility] HospitalAlkaline Cwjepkmlbju4934-36-51 19:33:00* Test Item Value Reference Range Interpretation Comments Alkaline Phosphatase (test code = 6768-6) 67 40-150 [facility] HospitalHuman Chorionic Gonadotropin, Qual 2018-05-31 19:23:00* Test Item Value Reference Range Interpretation Comments Human Chorionic Gonadotropin, Qual (test code = 2118-8) NEGATIVE NEGATIVE [facility] HospitalHuman Chorionic Gonadotropin, Qual 2018-05-31 19:23:00* Test Item Value Reference Range Interpretation Comments Human Chorionic Gonadotropin, Qual (test code = 2118-8) NEGATIVE NEGATIVE [facility] HospitalWhite Blood Shygl2163-33-24 19:13:00* Test Item Value Reference Range Interpretation Comments White Blood Count (test code = 6690-2) 12.74 4.8-10.[address] [facility] HospitalRed Blood Ckpkg6495-95-88 19:13:00* Test Item Value Reference Range Interpretation Comments Red Blood Count (test code = 789-8) 4.95 3.6-5.1 [facility] HospitalHemoglobin2018-07-11 19:13:00* Test Item Value Reference Range Interpretation Comments Hemoglobin (test code = 69922-5) 15.6 12.0-16.0 [facility] HospitalHematocrit2018-07-11 19:13:00* Test Item Value Reference Range Interpretation Comments Hematocrit (test code = 4544-3) 43.6 34.2-44.1 [facility] HospitalMean Corpuscular Nhyygn9095-21-79 19:13:00* Test Item Value Reference Range Interpretation Comments Mean Corpuscular Volume (test code = 787-2) 88.1 81-99 [facility] HospitalMean Corpuscular Wcaezpkgrf3096-02-17 19:13:00* Test Item Value Reference Range Interpretation Comments Mean Corpuscular Hemoglobin (test code = 785-6) 31.5 28-32 [facility] HospitalMean Corpuscular Hemoglobin Concent 2018-05-31 19:13:00* Test Item Value Reference Range Interpretation Comments Mean Corpuscular Hemoglobin Concent (test code = 786-4) 35.8 31-[address] [facility] HospitalRed Cell Distribution Qavvw1004-17-27 19:13:00* Test Item Value Reference Range Interpretation Comments Red Cell Distribution Width (test code = 97974-9) 12.0 11.7 -14.4 [facility] HospitalPlatelet Xnahd2641-31-74 19:13:00* Test Item Value Reference Range Interpretation Comments Platelet Count (test code = 777-3) 402 140-[address] [facility] HospitalNeutrophils (%) (Auto)2018-05-31 19:13:00 * Test Item Value Reference Range Interpretation Comments Neutrophils (%) (Auto) (test code = 62754-3) 62.1 38.7-80.0 [facility] HospitalLymphocytes (%) (Auto)2018-05-31 19:13:00 * Test Item Value Reference Range Interpretation Comments Lymphocytes (%) (Auto) (test code = 736-9) 28.3 18.0-39.1 [facility] HospitalMonocytes (%) (Auto)2018-05-31 19:13:00* Test Item Value Reference Range Interpretation Comments Monocytes (%) (Auto) (test code = 5905-5) 6.8 4.4-11.3 [facility] HospitalEosinophils (%) (Auto)2018-05-31 19:13:00 * Test Item Value Reference Range Interpretation Comments Eosinophils (%) (Auto) (test code = 713-8) 1.6 0.0-6.0 [facility] HospitalBasophils (%) (Auto)2018-05-31 19:13:00* Test Item Value Reference Range Interpretation Comments Basophils (%) (Auto) (test code = 706-2) 0.7 0.0-1.0 [facility] HospitalIM GRANULOCYTES %2018-05-31 19:13:00* Test Item Value Reference Range Interpretation Comments IM GRANULOCYTES % (test code = IM GRANULOCYTES %) 0.5 0.0- 1.0 [facility] HospitalNeutrophils # (Auto)2018-05-31 19:13:00* Test Item Value Reference Range Interpretation Comments Neutrophils # (Auto) (test code = 751-8) 7.9 2.1-6.[address] [facility] HospitalLymphocytes # (Auto)2018-05-31 19:13:00* Test Item Value Reference Range Interpretation Comments Lymphocytes # (Auto) (test code = 08382-8) 3.6 1.0-3.[address] [facility] HospitalMonocytes # (Auto)2018-05-31 19:13:00* Test Item Value Reference Range Interpretation Comments Monocytes # (Auto) (test code = 742-7) 0.9 0.2-0.[address] [facility] HospitalEosinophils # (Auto)2018-05-31 19:13:00* Test Item Value Reference Range Interpretation Comments Eosinophils # (Auto) (test code = 711-2) 0.2 0.0-0.4 [facility] HospitalBasophils # (Auto)2018-05-31 19:13:00* Test Item Value Reference Range Interpretation Comments Basophils # (Auto) (test code = 704-7) 0.1 0.0-0.1 [facility] HospitalAbsolute Immature Granulocyte (auto 2018-05-31 19:13:00* Test Item Value Reference Range Interpretation Comments Absolute Immature Granulocyte (auto (whitney t code = Absolute Immature Granulocyte (auto) 0.06 0-0.1 [facility] HospitalWhite Blood Xhhiv4477-58-47 19:13:00* Test Item Value Reference Range Interpretation Comments White Blood Count (test code = 6690-2) 12.74 4.8-10.[address] [facility] HospitalRed Blood Uwoel1751-07-90 19:13:00* Test Item Value Reference Range Interpretation Comments Red Blood Count (test code = 789-8) 4.95 3.6-5.1 [facility] HospitalHemoglobin2018-07-11 19:13:00* Test Item Value Reference Range Interpretation Comments Hemoglobin (test code = 59781-3) 15.6 12.0-16.0 [facility] HospitalHematocrit2018-07-11 19:13:00* Test Item Value Reference Range Interpretation Comments Hematocrit (test code = 4544-3) 43.6 34.2-44.1 [facility] HospitalMean Corpuscular Tldtmr4723-86-90 19:13:00* Test Item Value Reference Range Interpretation Comments Mean Corpuscular Volume (test code = 787-2) 88.1 81-99 [facility] HospitalMean Corpuscular Mfqweqratk1335-81-39 19:13:00* Test Item Value Reference Range Interpretation Comments Mean Corpuscular Hemoglobin (test code = 785-6) 31.5 28-32 [facility] HospitalMean Corpuscular Hemoglobin Concent 2018-05-31 19:13:00* Test Item Value Reference Range Interpretation Comments Mean Corpuscular Hemoglobin Concent (test code = 786-4) 35.8 31-[address] [facility] HospitalRed Cell Distribution Hkrdy5095-39-71 19:13:00* Test Item Value Reference Range Interpretation Comments Red Cell Distribution Width (test code = 36424-1) 12.0 11.7 -14.4 [facility] HospitalPlatelet Qjhqm3637-20-71 19:13:00* Test Item Value Reference Range Interpretation Comments Platelet Count (test code = 777-3) 402 140-[address] [facility] HospitalNeutrophils (%) (Auto)2018-05-31 19:13:00 * Test Item Value Reference Range Interpretation Comments Neutrophils (%) (Auto) (test code = 70264-7) 62.1 38.7-80.0 [facility] HospitalLymphocytes (%) (Auto)2018-05-31 19:13:00 * Test Item Value Reference Range Interpretation Comments Lymphocytes (%) (Auto) (test code = 736-9) 28.3 18.0-39.1 [facility] HospitalMonocytes (%) (Auto)2018-05-31 19:13:00* Test Item Value Reference Range Interpretation Comments Monocytes (%) (Auto) (test code = 5905-5) 6.8 4.4-11.3 [facility] HospitalEosinophils (%) (Auto)2018-05-31 19:13:00 * Test Item Value Reference Range Interpretation Comments Eosinophils (%) (Auto) (test code = 713-8) 1.6 0.0-6.0 [facility] HospitalBasophils (%) (Auto)2018-05-31 19:13:00* Test Item Value Reference Range Interpretation Comments Basophils (%) (Auto) (test code = 706-2) 0.7 0.0-1.0 [facility] HospitalIM GRANULOCYTES %2018-05-31 19:13:00* Test Item Value Reference Range Interpretation Comments IM GRANULOCYTES % (test code = IM GRANULOCYTES %) 0.5 0.0- 1.0 [facility] HospitalNeutrophils # (Auto)2018-05-31 19:13:00* Test Item Value Reference Range Interpretation Comments Neutrophils # (Auto) (test code = 751-8) 7.9 2.1-6.[address] [facility] HospitalLymphocytes # (Auto)2018-05-31 19:13:00* Test Item Value Reference Range Interpretation Comments Lymphocytes # (Auto) (test code = 06922-3) 3.6 1.0-3.[address] [facility] HospitalMonocytes # (Auto)2018-05-31 19:13:00* Test Item Value Reference Range Interpretation Comments Monocytes # (Auto) (test code = 742-7) 0.9 0.2-0.[address] [facility] HospitalEosinophils # (Auto)2018-05-31 19:13:00* Test Item Value Reference Range Interpretation Comments Eosinophils # (Auto) (test code = 711-2) 0.2 0.0-0.4 [facility] HospitalBasophils # (Auto)2018-05-31 19:13:00* Test Item Value Reference Range Interpretation Comments Basophils # (Auto) (test code = 704-7) 0.1 0.0-0.1 [facility] HospitalAbsolute Immature Granulocyte (auto 2018-05-31 19:13:00* Test Item Value Reference Range Interpretation Comments Absolute Immature Granulocyte (auto (whitney t code = Absolute Immature Granulocyte (auto) 0.06 0-0.1 [facility]
== END 2020-06-17 16:58 | disposition home or self-care (01) ==
LOC: ER 14:29
DX: K52.9 Noninfective gastroenteritis and colitis, unspecified (principal); R10.13 Epigastric pain; E11.65 Type 2 diabetes mellitus with hyperglycemia
CPT/HCPCS: 36415; 71045; 74177; 80053; 80307; 81001; 82150; 82550; 82553; 82948; 83690; 83735; 84484; 85025; 85610; 85730; 87086; 93005; 99284; C9113; J0500; J2550; J7030; Q9967

== ENCOUNTER 2022-05-04 20:55 | Emergency (ER) | payer OTHER ==
[~2022-05-04] VITALS: Ht 160 cm; Wt 77.1 kg
[~2022-05-04 20:55] MED LIST changes: +LEVSIN-SL0.125 MG SL; +METOCLOPRAMIDE10 MG PO; +PANTOPRAZOLE SO40 MG PO
[2022-05-04] MEDS ORDERED: KETOROLAC TROMETHAMINE 30 MG/ML VIAL IV STA (21:10)
[2022-05-04] MEDS ORDERED: METOCLOPRAMIDE HCL 10 MG/2ML VIAL IV ONE (21:15)
[2022-05-04] MEDS ORDERED: DIPHENHYDRAMINE HCL INJ 50 MG/ML VIAL IV ONE (21:15)
[2022-05-04] MEDS ORDERED: SODIUM CHLORIDE 0.9% 1000ML 1,000 ML IV SCH (21:15)
[2022-05-04] MEDS ORDERED: DEXAMETHASONE SOD PHOS 10 MG/1 ML VIAL IV ONE (21:20)
[2022-05-04] MEDS ORDERED: DEXAMETHASONE SOD PHOS INJ 4 MG/ML SDV ONE (21:30)
[2022-05-04] MEDS ORDERED: METOCLOPRAMIDE HCL 10 MG/2ML VIAL ONE (21:30)
[2022-05-04] MEDS ORDERED: DIPHENHYDRAMINE HCL INJ 50 MG/ML VIAL ONE (21:30)
[2022-05-04] MEDS ORDERED: KETOROLAC TROMETHAMINE 30 MG/ML VIAL ONE (21:30)
[2022-05-04] MEDS ORDERED: SODIUM CHLORIDE 0.9% 1000ML 1,000 ML ONE (21:31)
[2022-05-04] MEDS ORDERED: FIORICET 50-301 EACH PO (22:28)
[2022-05-04] MEDS ORDERED: ONDANSETRON ODT4 MG PO (22:28)
== END 2022-05-04 22:56 | disposition home or self-care (01) ==
LOC: FSED 21:00
DX: S16.1XXA Strain of muscle, fascia and tendon at neck level, initial encounter (principal); R25.2 Cramp and spasm; R11.0 Nausea; E11.65 Type 2 diabetes mellitus with hyperglycemia; X58.XXXA Exposure to other specified factors, initial encounter; Z79.84 Long term (current) use of oral hypoglycemic drugs
CPT/HCPCS: 80053; 85025; 99283; J1100; J1200; J1885; J2765; J7030

== ENCOUNTER 2022-09-14 11:54 | Emergency (ER) | payer OTHER ==
[~2022-09-14] VITALS: Ht 160 cm; Wt 74.8 kg
[~2022-09-14 11:54] MED LIST changes: +FIORICET 50-301 EACH PO; +ONDANSETRON ODT4 MG PO
[2022-09-14] MEDS ORDERED: KETOROLAC TROMETHAMINE 30 MG/ML VIAL IV STA (12:40)
[2022-09-14] MEDS ORDERED: ONDANSETRON HCL INJ 2MG/ML 2ML 2 MG/ML VIAL IV STA (12:40)
[2022-09-14] MEDS ORDERED: SODIUM CHLORIDE 0.9% 1000ML 1,000 ML IV SCH (12:45)
[2022-09-14] MEDS ORDERED: FAMOTIDINE 20 MG/2 ML VIAL IV STA (13:00)
[2022-09-14] MEDS ORDERED: KETOROLAC TROMETHAMINE 30 MG/ML VIAL ONE (13:10)
[2022-09-14] MEDS ORDERED: ONDANSETRON HCL INJ 2MG/ML 2ML 2 MG/ML VIAL ONE (13:10)
[2022-09-14] MEDS ORDERED: SODIUM CHLORIDE 0.9% 1000ML 1,000 ML ONE (13:10)
[2022-09-14] MEDS ORDERED: FAMOTIDINE 20 MG/2 ML VIAL IV ONE (13:11)
[2022-09-14] MEDS ORDERED: MECLIZINE HCL 12.5 MG TAB PO ONE (13:45)
[2022-09-14] MEDS ORDERED: MECLIZINE HCL 12.5 MG TAB ONE (14:09)
[2022-09-14] MEDS ORDERED: ONDANSETRON ODT4 MG PO (15:16)
[2022-09-14] MEDS ORDERED: NAPROSYN500 MG PO (15:18)
[2022-09-14] MEDS ORDERED: CYCLOBENZAPRINE10 MG PO (15:19)
[2022-09-14] MEDS ORDERED: MECLIZINE HCL12.5 MG PO (15:20)
[2022-09-14] MEDS ORDERED: MECLIZINE HCL25 MG PO (15:21)
[2022-09-14 15:32] VITALS: BP 135/69
== END 2022-09-14 15:41 | disposition home or self-care (01) ==
LOC: FSED 11:57
DX: R42 Dizziness and giddiness (principal); E11.65 Type 2 diabetes mellitus with hyperglycemia; M54.50 Low back pain, unspecified; R11.0 Nausea; R51.9 Headache, unspecified
CPT/HCPCS: 80053; 81003; 82553; 84484; 85025; 93005; 96374; 96375; 96376; 99283; J1885; J2405; J7030; J8597